=== PATIENT | male | born 1945 | race African-American/Black ===

== ENCOUNTER 2019-01-14 17:41 | Inpatient (IN) | payer MEDICARE ==
--- NOTE | 2019-01-14 17:59 | Emergency Department Report ---
HPI - General Time Seen by Provider: 01/14/19 17:48 - HPI HPI: Room 1 The patient is 73-year-old male presenting with chief complaint of weakness. The patient states he's had a nonproductive cough for the past several days. Patient states today he began to feel diffuse weakness prompting him to call 911. The patient denies chest pain, pressure, tightness or discomfort of any type. The patient states he feels as though he's been breathing more quickly Location: Lungs Duration: Days Quality: [See above] Severity: Moderate Modifying factors: [see above] Context: [see above] Mode of transportation: [not driving] ED Past Medical Hx - Past Medical History Hx Diabetes: Yes - Surgical History Past Surgical History?: No - Family History Family history: no significant - Social History Smoking Status: Unknown if ever smoked ED Review of Systems ROS: Stated complaint: STEMI Other details as noted in HPI Constitutional: weakness Eyes: denies: eye pain ENT: denies: throat pain Respiratory: shortness of breath Cardiovascular: denies: chest pain Endocrine: no symptoms reported Gastrointestinal: denies: abdominal pain Genitourinary: denies: dysuria Physical Exam - Physical Exam Physical Exam: GENERAL: The patient is well-developed well-nourished male lying on stretcher not appearing to be in acute distress. [] HEENT: Normocephalic. Atraumatic. Extraocular motions are intact. Patient has moist mucous membranes. NECK: Supple. Trachea midline CHEST/LUNGS: Coarse breath sounds diffusely. There is no respiratory distress noted. HEART/CARDIOVASCULAR: Regular. There is no tachycardia. There is no gallop rub or murmur. ABDOMEN: Abdomen is soft, nontender. Patient has normal bowel sounds. There is no abdominal distention. SKIN: There is no rash. There is no edema. There is no diaphoresis. NEURO: The patient is awake, alert, and oriented. The patient is cooperative. The patient has normal speech MUSCULOSKELETAL: There is no evidence of acute injury. ED Course - Consultations Consultation #1: 01/14/19 17:34 Prehospital EKG sent to Dr. Mckeon- case discussed. Recommend repeating EKG once the patient arrives in the ED. Okay to call a code STEMI now 17:52 EKG performed in the ED sent to Dr. Mckeon- will come and evaluate patient ED Medical Decision Making - EKG Data -: EKG Interpreted by Me EKG shows normal: sinus rhythm Rate: normal - EKG Data When compared to previous EKG there are: previous EKG unavailable Interpretation: other (ST elevation in leads V2, V3, V4) - Differential Diagnosis ACS, pneumonia, bronchitis, CHF Critical care attestation.: If time is entered above; I have spent that time in minutes in the direct care of this critically ill patient, excluding procedure time. ED Disposition Clinical Impression: Weakness, Cough Disposition: DC-09 OP ADMIT IP TO THIS HOSP Is pt being admited?: Yes Does the pt Need Aspirin: Yes Condition: Fair Time of Disposition: 18:02 (to [facility])
[2019-01-14] MEDS ORDERED: ASPIRIN PO ONE (18:02)
[2019-01-14] MEDS ORDERED: HEPARIN/NS 5000 UNIT/500ML(CATH LAB) 1,000 ML IR ONE (18:09)
[2019-01-14] MEDS ORDERED: NITROGLYCERIN SYRINGE 6 ML ONE (18:10)
[2019-01-14] MEDS ORDERED: NACL 0.9% 1000 ML 1,000 ML ONE (18:10)
[2019-01-14] MEDS ORDERED: VERSED ONE (18:12)
[2019-01-14] MEDS ORDERED: SUBLIMAZE ONE (18:13)
[2019-01-14] MEDS: XYLOCAINE 2% INFILTRATI ONE ×2 (18:16→18:17)
[2019-01-14] MEDS ORDERED: LASIX ONE ×2 (18:17→18:36)
[2019-01-14] MEDS: HEPARIN 10,000 UNITS/10 ML ONE ×2 (18:24→18:29)
--- NOTE | 2019-01-14 18:35 | History and Physical Report ---
Medications and Allergies Allergies Allergy/AdvReac Type Severity Reaction Status Date / Time No Known Allergies Allergy Verified 01/14/19 18:12 Exam - Constitutional Vitals: Temp Pulse Resp BP Pulse Ox 61 19 109/50 91 01/14/19 17:51 01/14/19 17:51 01/14/19 17:51 01/14/19 17:53
[2019-01-14] MEDS ORDERED: HEPARIN/NS 5000 UNIT/500ML(CATH LAB) 500 ML IR ONE (18:36)
[2019-01-14] MEDS ORDERED: AGGRASTAT DRIP (12.5 MG/250 ML) 12,500 MCG/250 ML BAG IV ONE (18:41)
[2019-01-14] MEDS ORDERED: MORPHINE ONE (18:56)
[2019-01-14] MEDS ORDERED: ZOFRAN IV PRN (18:57)
[2019-01-14] MEDS ORDERED: SODIUM CHLORIDE FLUSH SYRINGE 10 ML IV PRN (18:57)
[2019-01-14] MEDS ORDERED: MORPHINE IV PRN (18:57)
[2019-01-14] MEDS ORDERED: PROVENTIL IH PRN (18:57)
[2019-01-14] MEDS ORDERED: HEPARIN/ 0.45% NACL-25,000 UNIT/500 ML 25,000 UNIT/500 ML BAG ONE (19:01)
[2019-01-14] MEDS ORDERED: ALUM-MAG HYDROX-SIMETH 200-200-20MG/5ML ONE (19:02)
[2019-01-14] MEDS ORDERED: PLAVIX ONE (19:02)
[2019-01-14] MEDS ORDERED: TRIDIL DRIP 50MG/250ML 50 MG/250 ML BOTTLE ONE (19:04)
[2019-01-14 19:06] LABS: Basophils # (Auto) 0.1 K/mm3 (0.0-0.1); Basophils % (Auto) 0.4 % (0.0-1.8); Hematocrit 31.9 % (35.5-45.6); Hemoglobin 10.5 gm/dl (11.8-15.2); Lymphocytes # (Auto) 1.2 K/mm3 (1.2-5.4); Lymphocytes % (Auto) 8.3 % (13.4-35.0); Mean Corpuscular HGB Conc 33 % (32-34); Mean Corpuscular Volume 98 fl (84-94); Monocytes # (Auto) 0.7 K/mm3 (0.0-0.8); Monocytes % (Auto) 4.7 % (0.0-7.3); Platelet Count 284 K/mm3 (140-440); Red Blood Count 3.26 M/mm3 (3.65-5.03)
--- NOTE | 2019-01-14 19:14 | History and Physical Report ---
History of Present Illness Date of examination: 01/14/19 Chief complaint: Cough and weakness one week History of present illness: 73-year-old male was brought to the ER via EMS for complaints of cough and weakness of one week, EKG showed ST elevation IN and he was taken emergently to [facility] and cardiology asked to admit this patient by the hospitalist service. After this procedure I have seen and evaluated the patient and took history. 73-year-old male with past medical history significant for diabetes mellitus was brought to the emergency department with complaints of, difficulty of breathing for the last 3 days. Patient denied fever, chills, palpitation or chest pain prior to presentation. Patient complains weakness and tiredness. 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 REVIEW OF SYSTEMS: GENERAL: no weight change, no fatigue, no fever HEAD: no head ache EYES: no blurry vision, no acute visual loss EARS: no hearing loss, no discharge, no earache NOSE: no stuffiness, no sneezing, no discharge MOUTH, THROAT AND NECK: no bleeding gums, no sore throat, no swollen neck CARDIAC: no palpitations, no dyspnea on exertion, no orthopnea, no PND, no edema, no chest pain RESPIRATORY: As stated in the HPI. GI: no decreased appetite, no nausea, no vomiting, no dysphagia, no diarrhea, no constipation, no abdominal pain URINARY: no change in frequency, no urgency, no polyuria, no hematuria, no incontinence MUSCULOSKELETAL: no muscle weakness, no pain, no joint stiffness NEUROLOGIC: no loss of sensation/numbness, no tingling, no tremors, no weakness/paralysis HEMATOLOGIC: no anemia, no easy bruising SKIN: no rashes ENDOCRINE: no heat/cold intolerance, no polyuria, no polydipsia, no thyroid problems PSYCHIATRIC: no anxiety, no depression, no suicidal ideations Past History Past Medical History: diabetes Past Surgical History: hernia repair Social history: full code. denies: smoking, alcohol abuse, prescription drug abuse, IV drug use Family history: no significant family history Medications and Allergies Allergies Allergy/AdvReac Type Severity Reaction Status Date / Time No Known Allergies Allergy Verified 01/14/19 18:12 Exam - Physical Exam Narrative exam: Patient was in respiratory distress and was on Ventimask The patient appeared well nourished and normally developed. Vital signs as documented. Head exam is unremarkable. No scleral icterus . Neck is without jugular venous distension, thyromegaly, or carotid bruits. Lungs are clear to auscultation. Cardiac exam reveals regular rate and Rhythm. Tachycardic.. Abdominal exam reveals normal bowel sounds, no masses, no organomegaly and no aortic enlargement. Extremities are nonedematous and both femoral and pedal pulses are normal. MOLDER INFLATED BALL: Alert and oriented 3. No focal weakness. - Constitutional Vitals: Temp Pulse Resp BP Pulse Ox 61 19 109/50 91 01/14/19 17:51 01/14/19 17:51 01/14/19 17:51 01/14/19 17:53 Results - Labs CBC & Chem 7: 01/14/19 18:50 01/14/19 18:50 - Imaging and Cardiology Chest x-ray: report reviewed Assessment and Plan Assessment and plan: STEMI - Patient was taken emergently to [facility] by Dr. Mckeon and patient has occlu srinivasa of the LAD and stent was placed - Post STEMI orders placed by cardiology Pulmonary edema secondary to severe cardiomyopathy with ejection fraction of 15- 20% - Patient is on IV Lasix and other appropriate CHF medications DKA - Blood sugar was 427 and anion gap was 28 - Patient is on DKA protocol Bilateral pneumonia - Patient is on IV ceftriaxone and Rocephin Hypertension - Patient was started with BP medications and will monitor Disposition - Admit to CCU The high probability of a clinically significant, sudden or life threatening deterioration of the [CV, endocrine, respiratory] system(s) required my full and direct attention, intervention and personal management. The aggregate critical care time was [35] minutes. This time is in addition to time spent performing reported procedures but includes the following: [x] Data Review and interpretation [x] Patient assessment and monitoring of vital signs [x] Documentation [x] Medication orders and management Advance Directives: Yes VTE prophylaxis?: Chemical Plan of care discussed with patient/family: Yes
[2019-01-14 19:15] LABS: INR 1.97 (0.87-1.13)
[2019-01-14] MEDS ORDERED: TRIDIL DRIP 50MG/250ML 50 MG/250 ML BOTTLE IV ONE (19:16)
--- NOTE | 2019-01-14 19:30 | Consultation ---
History of Present Illness Consult date: 01/14/19 Consult reason: other (Acute STEMI) History of present illness: The patient is a 73-year-old man to the emergency room with complaints of shortness of breath or diaphoresis, and was hypoxic on presentation. His ECG was a normal sinus rhythm, with a widened QRS and left bundle branch block, but suspicious for an acute or recent anterior wall ST elevation myocardial infarction. Emergency cardiac catheterization protocol was activated. At cardiac catheterization, with found complete occlusion of the LAD at its ostium. There was no forward flow and no significant collateralization. In addition, the right coronary artery contained a long, 80% stenosis of its proximal to mid segment. There was a severe ischemic cardiomyopathy with ejection fraction estimated at less than 15-20%. We successfully performed primary angioplasty of the LAD, reestablished flow, and deployed a 2.75 mm drug-eluting stent. Due to evidence of a severe cardiomyopathy, acute heart failure and cardiogenic shock, we inserted an intra- aortic balloon pump and established successful one-to-one counterpulsation. The patient is admitted to the CCU for post-HI stabilization. The condition is guarded to poor. The disease of the right coronary will be planned for elective staged intervention as outpatient. Past History Past Medical History: CAD Medications and Allergies Allergies Allergy/AdvReac Type Severity Reaction Status Date / Time No Known Allergies Allergy Verified 01/14/19 18:12 Active Meds: Active Medications Albuterol (Proventil) 2.5 mg IH Q4HRT PRN PRN Reason: Shortness Of Breath Aspirin (Baby Aspirin) 162 mg PO QDAY ANAYELI Atorvastatin Calcium (Lipitor) 40 mg PO QHS ANAYELI Tirofiban/Sodium Chloride (Aggrastat Drip (12.5 Mg/250 Ml)) 12,500 mcg in 250 mls @ 0 mls/hr IV DIRECT ANAYELI; Protocol Stop: 01/15/19 13:59 Morphine Sulfate (Morphine) 2 mg IV Q4H PRN PRN Reason: Pain, Moderate (4-6) Ondansetron HCl (Zofran) 4 mg IV Q8H PRN PRN Reason: Nausea And Vomiting Sodium Chloride (Sodium Chloride Flush Syringe 10 Ml) 10 ml IV BID ANAYELI Sodium Chloride (Sodium Chloride Flush Syringe 10 Ml) 10 ml IV PRN PRN PRN Reason: LINE FLUSH Review of Systems ROS unobtainable: due to mental status Physical Examination Vital Signs Pulse Resp BP Pulse Ox 61 19 109/50 82 L 01/14/19 17:51 01/14/19 17:51 01/14/19 17:51 01/14/19 17:51 General appearance: mild distress, cachectic HEENT: Positive: PERRL Neck: Positive: neck supple Cardiac: Positive: Reg Rate and Rhythm Lungs: Positive: Decreased Breath Sounds, Rales Neuro: Positive: Grossly Intact Abdomen: Positive: Soft Male genitourinary: Positive: deferred Skin: Positive: Clear Extremities: Absent: edema Results 01/14/19 18:50 Coagulation 01/14/19 Range/Units 18:50 PT 23.7 H (12.2-14.9) Sec. INR 1.97 H (0.87-1.13) CBC 01/14/19 Range/Units 18:50 WBC 13.9 H (4.5-11.0) K/mm3 RBC 3.26 L (3.65-5.03) M/mm3 Hgb 10.5 L (11.8-15.2) gm/dl Hct 31.9 L (35.5-45.6) % Plt Count 284 (140-440) K/mm3 Lymph # 1.2 (1.2-5.4) K/mm3 [place] # 0.7 (0.0-0.8) K/mm3 Eos # 0.0 (0.0-0.4) K/mm3 Baso # 0.1 (0.0-0.1) K/mm3 EKG interpretations - Telemetry EKG Rhythm: Sinus Rhythm (acute anterior wall STEMI) Assessment and Plan - Patient Problems (1) Acute ST elevation myocardial infarction (STEMI) of anterior wall Current Visit: Yes Status: Acute Plan to address problem: Patient is status post acute anterior wall ST elevation myocardial infarction, treated successfully with primary angioplasty and stenting of the LAD. Intra- aortic balloon pump was inserted for further management of acute heart failure and cardiogenic shock. Prognosis is guarded.
--- NOTE | 2019-01-14 19:53 | Cardiac Catherization Report ---
PROCEDURES PERFORMED: Cardiac catheterization and coronary angioplasty. REASON FOR PROCEDURE: Acute anterior wall ST elevation myocardial infarction. The patient was brought to the Emergency Room with acute shortness of breath, diaphoretic, ECG was sinus rhythm with left bundle-branch block and evidence of an acute anterior wall ST elevation myocardial infarction. Emergency cardiac catheterization protocol was activated. DESCRIPTION OF PROCEDURE: The patient was prepped and draped in a sterile fashion under emergency protocol. The right femoral artery was entered using the Seldinger technique followed by placement of a 6-Chadian sheath. A 5-Chadian sheath was similarly placed in the right femoral vein. Selective left and right coronary angiography was performed using #4 right and left Jeri catheters. The right Jeri was used for left ventricle angiography. The angiograms were reviewed. The left main coronary artery contained mild irregularities. The left anterior descending artery was completely occluded at its ostium. There was no forward flow, no collateralization of the LAD. This was an infarct related lesion. The circumflex artery and its obtuse marginal branches contained mild irregularities. The right coronary artery was a small caliber, but dominant vessel. This vessel contained a long 80% stenosis of its proximal to mid segment. The left ventricle is severely dilated, severe left ventricular systolic dysfunction, diffuse hypokinesis, hypo- to akinesis of the anterior wall, ejection fraction estimated less than 15% to 20%. CORONARY ANGIOPLASTY: Ad hoc, primary angioplasty of the LAD was performed. We selected a #3.0 XB guiding catheter and advanced to the left coronary ostium. A 0.014-inch Training Project Manager 50 guidewire was introduced into the LAD, successfully penetrating the completely occluded vessel. Following wire placement, we performed predilatation balloon angioplasty which revealed long segment of diffuse severe disease of the LAD extending from its ostium. We then deployed #2.75 x 26 mm Resolute drug-eluting stent, covering the entire lesional segment. Following stenting, there was lutheran of ANTELMO 2-3 flow. Procedure was well tolerated by the patient and there were no complications. On presentation, the patient maintained a low blood pressure of 85-100 systolic. We then recommended intra-aortic balloon pump support. Intra-aortic balloon pump was then inserted, and successful 1:1 counterpulsation was established. The patient was returned to the postprocedure unit in stable, but guarded condition. CONCLUSION: 1. Acute anterior wall ST elevation myocardial infarction. 2. Congestive heart failure. 3. Cardiogenic shock. 4. A 100% occlusion of the left anterior descending artery at its ostium is the infarct related vessel. 5. A long 80% stenosis of the right coronary artery is a secondary disease. 6. Successful primary angioplasty and stenting of the LAD with deployment of a 2.75 x 22 mm drug-eluting stent. 7. Ischemic cardiomyopathy, severe left ventricular systolic dysfunction, ejection fraction less than 15% to 20%. 8. Deployment of an intra-aortic balloon pump. The patient will be admitted to the CCU for post-NH stabilization, subsequent second vessel angioplasty of the right coronary artery will be a staged procedure planned for predischarge or as an outpatient. JOB# [id number] ARISTEO/MAURO
[2019-01-14 19:57] LABS: Chol/HDL Ratio 4.48 %
[2019-01-14] MEDS ORDERED: HEPARIN/ 0.45% NACL-25,000 UNIT/500 ML 25,000 UNIT/500 ML BAG IV SCH (20:00)
[2019-01-14] MEDS ORDERED: NACL 0.9% 1000 ML 1,000 ML IV SCH (20:00)
[2019-01-14] MEDS ORDERED: AGGRASTAT DRIP (12.5 MG/250 ML) 12,500 MCG/250 ML BAG IV SCH (20:00)
[2019-01-14 20:10] LABS: Partial Thromboplastin Time < 20.0 Sec. (24.2-36.6)
--- NOTE | 2019-01-14 20:42 | XRay Report ---
PROCEDURES: XR CHEST 1V AP TECHNIQUE: AP portable view of the chest. HISTORY: cough COMPARISON: None FINDINGS: Lines, tubes, and devices: N/A Lungs and pleura: Trachea is normal in position. Bilateral alveolar infiltrates extending from the hi lar regions and findings are likely consistent with pulmonary edema. However, pneumonia is not exclud ed. Cardiomediastinal silhouette: Cardiac and mediastinal silhouettes are unremarkable. Other: Bony structures are intact. IMPRESSION: Bilateral perihilar alveolar infiltrates. Findings are most typical of pulmonary edema. Pneumonia is not excluded. This document is electronically signed by Alena Pathak MD., January 14 2019 08:40:31 PM ET
[2019-01-14 20:51] LABS: Creatine Kinase MB 3.2 ng/mL (0.0-4.0)
[2019-01-14 20:52] LABS: Albumin 2.8 g/dL (3.9-5); Calcium 8.2 mg/dL (8.4-10.2)
[2019-01-14] MEDS ORDERED: D50W (25GM) Syringe IV PRN (21:24)
[2019-01-14] MEDS ORDERED: COREG PO SCH (21:39)
[2019-01-14] MEDS ORDERED: HumuLIN R 100 UNITS in NACL 0.9% 99 ML IV SCH (22:00)
[2019-01-14 22:01] LABS: Free T4 (Free Thyroxine) 1.67 ng/dL (0.76-1.46)
[2019-01-14 22:06] LABS: Calcium 8.2 mg/dL (8.4-10.2)
[2019-01-14] MEDS: ZITHROMAX 500 MG in NACL 0.9% 250ML 250 ML IV SCH (22:12)
[2019-01-14] MEDS: PROTONIX PO SCH (22:16)
[2019-01-14] MEDS: ROCEPHIN/NS 1 GM/50 ML 1 GM/50 ML BAG IV SCH (22:30)
[2019-01-14] MEDS: SODIUM CHLORIDE FLUSH SYRINGE 10 ML IV SCH (22:38)
[2019-01-15 01:59] LABS: Blood Urea Nitrogen TNR mg/dL (9-20)
[2019-01-15 02:00] LABS: BUN/Creatinine Ratio TNR; Calcium TNR mg/dL (8.4-10.2); Hemolysis Index TNR
[2019-01-15 02:51] LABS: Calcium 7.6 mg/dL (8.4-10.2)
[2019-01-15 03:37] LABS: Basophils % (Auto) 0.3 % (0.0-1.8); Hemoglobin 9.5 gm/dl (11.8-15.2); Lymphocytes # (Auto) 1.3 K/mm3 (1.2-5.4); Lymphocytes % (Auto) 9.3 % (13.4-35.0); Mean Corpuscular HGB Conc 33 % (32-34); Mean Corpuscular Volume 96 fl (84-94); Monocytes # (Auto) 1.4 K/mm3 (0.0-0.8); Monocytes % (Auto) 10.1 % (0.0-7.3); Platelet Count 262 K/mm3 (140-440); Red Blood Count 3.01 M/mm3 (3.65-5.03); Red Cell Distribution Width 16.8 % (13.2-15.2)
[2019-01-15 04:18] LABS: Calcium 7.4 mg/dL (8.4-10.2)
[2019-01-15 05:33] LABS: Bilirubin,Urine NEG (Negative); Blood,Urine MOD (Negative); Color,Urine Yellow (Yellow); Mucus,Urine FEW /HPF; Protein,Urine <15 mg/dL mg/dL (Negative); Urobilinogen,Urine < 2.0 mg/dL (<2.0)
[2019-01-15] MEDS: LASIX IV SCH ×2 (06:29→17:25)
[2019-01-15] MEDS ORDERED: FLEXERIL PO ONE (06:30)
[2019-01-15] MEDS ORDERED: D50W (25GM) Syringe IV PRN (07:10)
[2019-01-15] MEDS: HumaLOG SUB-Q SCH ×4 (08:00→21:06)
--- NOTE | 2019-01-15 09:22 | XRay Report ---
PROCEDURE: XR CHEST 1V AP TECHNIQUE: Single frontal view of the chest HISTORY: post pci COMPARISONS: 01/14/2019 FINDINGS: Unchanged surgical clip in the mid mediastinum. Normal heart size. Air distended esophagus. Unchanged hazy airspace opacities extending from the hilar regions, similar in appearance the previou s study. No pleural effusion or pneumothorax. No acute bony or soft tissue abnormality. IMPRESSION: Unchanged airspace opacities extending from the hilar regions, may represent pulmonary edema. This document is electronically signed by Michelle Jones MD., January 15 2019 09:20:09 AM ET
[2019-01-15 10:18] LABS: Calcium 7.9 mg/dL (8.4-10.2)
[2019-01-15] MEDS: IMDUR PO SCH (11:05)
[2019-01-15] MEDS: PLAVIX PO SCH (11:05)
[2019-01-15] MEDS: ALDACTONE PO SCH (11:06)
[2019-01-15] MEDS: LANTUS SUB-Q SCH ×2 (11:07→21:15)
[2019-01-15] MEDS: BABY ASPIRIN PO SCH (11:07)
[2019-01-15] MEDS: PROTONIX PO SCH (11:08)
[2019-01-15] MEDS: SODIUM CHLORIDE FLUSH SYRINGE 10 ML IV SCH ×2 (11:09→20:59)
[2019-01-15] MEDS: ZESTRIL PO SCH (11:10)
--- NOTE | 2019-01-15 11:59 | Progress Note ---
Assessment and Plan - Patient Problems (1) Acute ST elevation myocardial infarction (STEMI) of anterior wall Current Visit: Yes Status: Acute Plan to address problem: Patient is status post acute anterior wall ST elevation myocardial infarction, treated successfully with primary angioplasty and stenting of the LAD. Intra- aortic balloon pump was inserted for further management of acute heart failure and cardiogenic shock. Prognosis is guarded. Subjective Date of service: 01/15/19 Interval history: The patient is awake and alert, reports no chest pain, remains balloon dependent one-to-one counterpulsation. Rhythm remains a stable sinus rhythm. Objective Vital Signs Temp Pulse Resp BP Pulse Ox 01/15/19 11:06 101 H 162/63 01/15/19 11:05 101 H 162/63 01/15/19 10:15 99 H 25 H 153/59 100 01/15/19 10:06 96 H 19 156/58 100 01/15/19 10:00 90 20 153/59 100 01/15/19 09:45 102 H 19 157/62 99 01/15/19 09:30 99 H 23 167/96 92 01/15/19 09:15 91 H 20 158/57 100 01/15/19 09:00 91 H 20 156/58 100 01/15/19 08:45 102 H 18 151/58 99 01/15/19 08:41 93 H 19 150/58 94 01/15/19 08:30 99 H 18 150/58 97 01/15/19 08:21 106 H 24 154/65 96 01/15/19 08:11 105 H 23 127/86 97 01/15/19 08:05 98.3 F 90 20 127/86 100 01/15/19 08:00 90 20 127/86 100 01/15/19 07:51 92 H 22 146/69 99 01/15/19 07:41 97 H 20 156/70 99 01/15/19 07:30 97 H 26 H 156/70 99 01/15/19 07:28 93 H 26 H 156/70 98 01/15/19 07:21 95 H 12 158/60 97 01/15/19 07:11 100 H 24 158/59 97 01/15/19 07:00 90 22 158/59 97 01/15/19 06:51 93 H 23 150/69 96 01/15/19 06:41 91 H 23 168/88 97 01/15/19 06:40 88 20 95 01/15/19 06:32 98.0 F 101 H 22 162/63 97 01/15/19 06:31 100 H 29 H 168/88 01/15/19 06:21 108 H 24 154/69 97 01/15/19 06:11 93 H 26 H 146/60 98 01/15/19 06:00 88 21 146/60 99 01/15/19 05:51 89 21 149/56 97 01/15/19 05:42 98.0 F 88 25 H 149/56 100 01/15/19 05:41 88 22 159/60 99 01/15/19 05:30 92 H 21 159/60 99 01/15/19 05:21 86 20 137/62 97 01/15/19 05:11 90 22 142/64 97 01/15/19 05:00 96 H 22 142/64 95 01/15/19 04:51 95 H 20 145/66 94 01/15/19 04:41 87 20 143/62 96 01/15/19 04:30 105 H 22 143/62 97 01/15/19 04:20 87 19 151/56 98 01/15/19 04:11 85 21 156/68 99 01/15/19 04:00 98.1 F 94 H 26 H 151/62 97 01/15/19 03:55 98.3 F 101 H 22 162/63 97 01/15/19 03:51 89 20 158/62 99 01/15/19 03:41 95 H 23 158/62 98 01/15/19 03:30 96 H 20 158/62 97 01/15/19 03:21 92 H 22 138/60 97 01/15/19 03:11 93 H 22 148/55 98 01/15/19 03:09 98.0 F 89 25 H 148/55 100 01/15/19 03:00 97.9 F 89 22 148/55 100 01/15/19 02:51 92 H 21 156/66 100 01/15/19 02:41 97 H 23 138/60 99 01/15/19 02:38 97 H 138/60 01/15/19 02:30 96 H 20 138/60 95 01/15/19 02:21 98.0 F 101 H 25 H 142/67 100 01/15/19 02:11 99 H 29 H 156/66 96 01/15/19 02:00 97.9 F 103 H 22 156/66 97 01/15/19 01:51 102 H 21 159/64 96 01/15/19 01:41 100 H 26 H 160/71 96 01/15/19 01:31 105 H 30 H 164/102 98 01/15/19 01:28 98.0 F 97 H 19 146/65 100 01/15/19 01:21 97 H 29 H 138/65 96 01/15/19 01:11 94 H 23 139/62 96 01/15/19 01:00 97.9 F 93 H 22 139/62 98 01/15/19 00:51 96 H 22 142/65 95 01/15/19 00:41 97 H 33 H 138/65 96 01/15/19 00:30 90 20 138/65 95 01/15/19 00:21 100 H 27 H 134/59 96 01/15/19 00:11 100 H 24 145/65 97 01/15/19 00:09 103 H 19 145/65 100 01/15/19 00:00 97.9 F 103 H 28 H 145/65 94 01/14/19 23:51 110 H 27 H 155/55 93 01/14/19 23:41 118 H 30 H 152/50 95 01/14/19 23:31 122 H 29 H 152/50 94 01/14/19 23:21 123 H 28 H 152/50 96 01/14/19 23:14 98.0 F 117 H 20 152/50 100 01/14/19 23:11 118 H 19 143/50 97 01/14/19 23:00 97.9 F 113 H 22 143/50 93 01/14/19 22:51 117 H 22 139/46 97 01/14/19 22:41 114 H 20 140/50 96 01/14/19 22:31 114 H 26 H 144/46 96 01/14/19 22:21 113 H 29 H 155/49 95 01/14/19 22:11 102 H 22 145/62 96 01/14/19 22:08 97.9 F 102 H 24 148/71 100 01/14/19 22:00 97.9 F 103 H 20 145/66 94 01/14/19 21:51 105 H 23 168/109 98 01/14/19 21:41 109 H 27 H 169/55 97 01/14/19 21:31 121 H 32 H 165/62 98 01/14/19 21:21 117 H 34 H 169/55 99 01/14/19 21:17 118 H 19 169/55 100 01/14/19 21:11 121 H 37 H 168/55 100 01/14/19 21:01 97.9 F 117 H 20 152/53 95 01/14/19 21:00 97.9 F 01/14/19 20:51 120 H 33 H 163/51 96 01/14/19 20:46 97.9 F 116 H 20 163/51 95 01/14/19 20:41 112 H 26 H 168/55 95 01/14/19 20:31 97.9 F 116 H 20 168/22 92 01/14/19 20:21 121 H 26 H 178/103 95 01/14/19 20:17 97.2 F L 125 H 20 174/103 100 01/14/19 20:11 121 H 33 H 01/14/19 20:08 121 H 29 H 01/14/19 17:53 91 01/14/19 17:51 61 19 109/50 82 L - Physical Examination General: No Apparent Distress HEENT: Positive: PERRL Neck: Positive: neck supple Cardiac: Positive: Reg Rate and Rhythm Lungs: Positive: Decreased Breath Sounds Neuro: Positive: Grossly Intact Abdomen: Positive: Soft Skin: Positive: Clear Extremities: Absent: edema - Labs and Meds Cardiac Enzymes 01/14/19 Range/Units 18:50 AST 70 H (5-40) units/L CK-MB (CK-2) 3.2 (0.0-4.0) ng/mL Coagulation 01/14/19 Range/Units 18:50 PT 23.7 H (12.2-14.9) Sec. INR 1.97 H (0.87-1.13) APTT < 20.0 L (24.2-36.6) Sec. Lipids 01/14/19 Range/Units 18:50 Triglycerides 106 (2-149) mg/dL Cholesterol 139 (50-199) mg/dL HDL Cholesterol 31 L (40-59) mg/dL Cholesterol/HDL Ratio 4.48 % CBC 01/14/19 01/15/19 Range/Units 18:50 03:23 WBC 13.9 H 13.6 H (4.5-11.0) K/mm3 RBC 3.26 L 3.01 L (3.65-5.03) M/mm3 Hgb 10.5 L 9.5 L (11.8-15.2) gm/dl Hct 31.9 L 29.0 L (35.5-45.6) % Plt Count 284 262 (140-440) K/mm3 Lymph # 1.2 1.3 (1.2-5.4) K/mm3 [place]eller # 0.7 1.4 H (0.0-0.8) K/mm3 Eos # 0.0 0.0 (0.0-0.4) K/mm3 Baso # 0.1 0.0 (0.0-0.1) K/mm3 Comprehensive Metabolic Panel 01/14/19 01/14/19 01/14/19 Range/Units 18:50 21:42 23:46 Sodium 123 L 130 L D TNR (137-145) mmol/L Potassium 5.8 H 5.4 H TNR (3.6-5.0) mmol/L Chloride 87.7 L 90.9 L TNR (98-107) mmol/L Carbon Dioxide 13 L 17 L TNR (22-30) mmol/L BUN 27 H 28 H TNR (9-20) mg/dL Creatinine 1.7 H 1.5 TNR (0.8-1.5) mg/dL Glucose 474 H 504 H* TNR (75-100) mg/dL Calcium 8.2 L 8.2 L TNR (8.4-10.2) mg/dL AST 70 H (5-40) units/L ALT 73 H (7-56) units/L Alkaline Phosphatase 66 (35-129) units/L Total Protein 6.0 L (6.3-8.2) g/dL Albumin 2.8 L (3.9-5) g/dL 01/15/19 01/15/19 01/15/19 Range/Units 01:20 03:23 07:38 Sodium 134 L 133 L 134 L (137-145) mmol/L Potassium 4.2 D 4.1 5.0 D (3.6-5.0) mmol/L Chloride 99.8 100.3 97.6 L (98-107) mmol/L Carbon Dioxide 20 L 21 L 20 L (22-30) mmol/L BUN 29 H 30 H 30 H (9-20) mg/dL Creatinine 1.3 1.3 1.3 (0.8-1.5) mg/dL Glucose 299 H 190 H 81 (75-100) mg/dL Calcium 7.6 L 7.4 L 7.9 L (8.4-10.2) mg/dL AST (5-40) units/L ALT (7-56) units/L Alkaline Phosphatase (35-129) units/L Total Protein (6.3-8.2) g/dL Albumin (3.9-5) g/dL
--- NOTE | 2019-01-15 12:27 | Consultation ---
History of Present Illness - Reason for Consult Consult date: 01/15/19 STEMI now on Balloon PUMP and Cardiogenic Shock Requesting physician: ADRIANNA ROMEO - History of Present Illness 73 y/o male admitted with sTEMI. Taken to laboratory sampler for PCI and had intra-aortic ballon pump placed. Currently 1:1, Augmented pressure is 138. Patient awake and alert. Ext are cool. Past History Past Medical History: diabetes Past Surgical History: hernia repair Social history: full code. denies: smoking, alcohol abuse, prescription drug abuse, IV drug use Family history: no significant family history Medications and Allergies Allergies Allergy/AdvReac Type Severity Reaction Status Date / Time No Known Allergies Allergy Verified 01/14/19 18:12 Home Medications Medication Instructions Recorded Confirmed Last Taken Type Calcium Citrate/Vitamin D3 5,000 tab PO DAILY 01/15/19 01/15/19 01/14/19 History am Glyburide 3 mg PO DAILY 01/15/19 01/15/19 01/14/19 History am Metformin ER (Nf) 1,000 mg PO BID 01/15/19 01/15/19 01/14/19 History am Active Meds: Active Medications Albuterol (Proventil) 2.5 mg IH Q4HRT PRN PRN Reason: Shortness Of Breath Aspirin (Baby Aspirin) 162 mg PO QDAY COUNTS INCLUDE 234 BEDS AT THE [facility] Last Admin: 01/15/19 11:07 Dose: 162 mg Documented by: Atorvastatin Calcium (Lipitor) 40 mg PO QHS COUNTS INCLUDE 234 BEDS AT THE [facility] Last Admin: 01/14/19 22:16 Dose: 40 mg Documented by: Clopidogrel Bisulfate (Plavix) 75 mg PO QDAY COUNTS INCLUDE 234 BEDS AT THE [facility] Last Admin: 01/15/19 11:05 Dose: 75 mg Documented by: Dextrose (D50w (25gm) Syringe) 50 ml IV PRN PRN PRN Reason: Hypoglycemia Furosemide (Lasix) 40 mg IV 0600,1800 COUNTS INCLUDE 234 BEDS AT THE [facility] Last Admin: 01/15/19 06:29 Dose: Not Given Documented by: Guaifenesin (Guaifenesin Dm Syrup) 10 ml PO Q4H PRN PRN Reason: Cough Last Admin: 01/15/19 12:01 Dose: 10 ml Documented by: Tirofiban/Sodium Chloride (Aggrastat Drip (12.5 Mg/250 Ml)) 12,500 mcg in 250 mls @ 5.25 mls/hr IV DIRECT ANAYELI; Protocol Stop: 01/15/19 13:59 Last Admin: 01/14/19 20:17 Dose: 5.25 mls/hr Documented by: Heparin Sodium/Sodium Chloride (Heparin/ 0.45% Nacl-25,000 Unit/500 Ml) 25,000 unit in 500 mls @ 15 mls/hr IV TITRATE ANAYELI; Protocol Last Titration: 01/15/19 04:05 Dose: 700 units/hr, 14 mls/hr Documented by: Nitroglycerin/Dextrose (Tridil Drip 50mg/250ml) 50 mg in 250 mls @ 3 mls/hr IV TITR ONE; Protocol Stop: 01/18/19 06:35 Last Admin: 01/14/19 20:17 Dose: 10 mcg/min, 3 mls/hr Documented by: Azithromycin 500 mg/ Sodium (Chloride) 250 mls @ 250 mls/hr IV Q24HR@2200 ANAYELI Last Admin: 01/14/19 22:12 Dose: 250 mls/hr Documented by: Ceftriaxone Sodium (Rocephin/Ns 1 Gm/50 Ml) 1 gm in 50 mls @ 100 mls/hr IV Q24HR@2200 ANAYELI; Protocol Last Admin: 01/14/19 22:30 Dose: 100 mls/hr Documented by: Insulin Glargine (Lantus) 10 units SUB-Q BID COUNTS INCLUDE 234 BEDS AT THE [facility] Last Admin: 01/15/19 11:07 Dose: 10 units Documented by: Insulin Human Lispro (Humalog) 0 unit SUB-Q ACHS COUNTS INCLUDE 234 BEDS AT THE [facility]; Protocol Last Admin: 01/15/19 12:01 Dose: 3 unit Documented by: Isosorbide Mononitrate (Imdur) 30 mg PO QDAY COUNTS INCLUDE 234 BEDS AT THE [facility] Last Admin: 01/15/19 11:05 Dose: 30 mg Documented by: Lisinopril (Zestril) 2.5 mg PO QDAY COUNTS INCLUDE 234 BEDS AT THE [facility] Last Admin: 01/15/19 11:10 Dose: Not Given Documented by: Morphine Sulfate (Morphine) 2 mg IV Q4H PRN PRN Reason: Pain, Moderate (4-6) Ondansetron HCl (Zofran) 4 mg IV Q8H PRN PRN Reason: Nausea And Vomiting Last Admin: 01/14/19 22:22 Dose: 4 mg Documented by: Pantoprazole Sodium (Protonix) 40 mg PO QDAY COUNTS INCLUDE 234 BEDS AT THE [facility] Last Admin: 01/15/19 11:08 Dose: 40 mg Documented by: Sodium Chloride (Sodium Chloride Flush Syringe 10 Ml) 10 ml IV BID COUNTS INCLUDE 234 BEDS AT THE [facility] Last Admin: 01/15/19 11:09 Dose: 10 ml Documented by: Sodium Chloride (Sodium Chloride Flush Syringe 10 Ml) 10 ml IV PRN PRN PRN Reason: LINE FLUSH Spironolactone (Aldactone) 25 mg PO QDAY COUNTS INCLUDE 234 BEDS AT THE [facility] Last Admin: 01/15/19 11:06 Dose: 25 mg Documented by: Review of Systems All systems: negative Exam - Constitutional Vitals: Temp Pulse Resp BP Pulse Ox 98.3 F 101 H 25 H 162/63 96 01/15/19 08:05 01/15/19 11:06 01/15/19 10:15 01/15/19 11:06 01/15/19 12:03 General appearance: Present: no acute distress, disheveled - EENT Eyes: Present: PERRL ENT: hearing intact - Neck Neck: Present: supple - Respiratory Respiratory effort: other (tachypnic) Respiratory: bilateral: rales - Cardiovascular Rhythm: regular - Extremities Extremity abnormal: cold - Abdominal General gastrointestinal: Present: soft Results - Labs CBC & Chem 7: 01/15/19 03:23 01/15/19 07:38 Labs: Abnormal lab results 01/14/19 01/14/19 01/14/19 Range/Units 18:50 18:50 18:50 WBC (4.5-11.0) K/mm3 RBC (3.65-5.03) M/mm3 Hgb (11.8-15.2) gm/dl Hct (35.5-45.6) % MCV (84-94) fl RDW (13.2-15.2) % Lymph % (Auto) (13.4-35.0) % [place] % (Auto) (0.0-7.3) % [place] # (0.0-0.8) K/mm3 Seg Neutrophils % (40.0-70.0) % Seg Neutrophils # (1.8-7.7) K/mm3 PT 23.7 H (12.2-14.9) Sec. INR 1.97 H (0.87-1.13) APTT < 20.0 L (24.2-36.6) Sec. Heparin Anti-Xa Level (0.3-0.7) U.I./ml Sodium 123 L (137-145) mmol/L Potassium 5.8 H (3.6-5.0) mmol/L Chloride 87.7 L (98-107) mmol/L Carbon Dioxide 13 L (22-30) mmol/L BUN 27 H (9-20) mg/dL Creatinine 1.7 H (0.8-1.5) mg/dL Glucose 474 H (75-100) mg/dL POC Glucose (70-105) Calcium 8.2 L (8.4-10.2) mg/dL AST 70 H (5-40) units/L ALT 73 H (7-56) units/L Troponin T 1.780 H* (0.00-0.029) ng/mL NT-Pro-B Natriuret Pep 8727 H (0-900) pg/mL Total Protein 6.0 L (6.3-8.2) g/dL Albumin 2.8 L (3.9-5) g/dL HDL Cholesterol (40-59) mg/dL Free T4 1.67 H (0.76-1.46) ng/dL Ur Specific [place] (1.003-1.030) Urine WBC (Auto) (0.0-6.0) /HPF 01/14/19 01/14/19 01/14/19 Range/Units 18:50 18:50 21:12 WBC 13.9 H (4.5-11.0) K/mm3 RBC 3.26 L (3.65-5.03) M/mm3 Hgb 10.5 L (11.8-15.2) gm/dl Hct 31.9 L (35.5-45.6) % MCV 98 H (84-94) fl RDW 17.0 H (13.2-15.2) % Lymph % (Auto) 8.3 L (13.4-35.0) % [place] % (Auto) (0.0-7.3) % [place] # (0.0-0.8) K/mm3 Seg Neutrophils % 86.6 H (40.0-70.0) % Seg Neutrophils # 12.1 H (1.8-7.7) K/mm3 PT (12.2-14.9) Sec. INR (0.87-1.13) APTT (24.2-36.6) Sec. Heparin Anti-Xa Level (0.3-0.7) U.I./ml Sodium (137-145) mmol/L Potassium (3.6-5.0) mmol/L Chloride (98-107) mmol/L Carbon Dioxide (22-30) mmol/L BUN (9-20) mg/dL Creatinine (0.8-1.5) mg/dL Glucose (75-100) mg/dL POC Glucose 437 H (70-105) Calcium (8.4-10.2) mg/dL AST (5-40) units/L ALT (7-56) units/L Troponin T 1.760 H* (0.00-0.029) ng/mL NT-Pro-B Natriuret Pep (0-900) pg/mL Total Protein (6.3-8.2) g/dL Albumin (3.9-5) g/dL HDL Cholesterol 31 L (40-59) mg/dL Free T4 (0.76-1.46) ng/dL Ur Specific [place] (1.003-1.030) Urine WBC (Auto) (0.0-6.0) /HPF 01/14/19 01/14/19 01/14/19 Range/Units 21:42 23:05 23:40 WBC (4.5-11.0) K/mm3 RBC (3.65-5.03) M/mm3 Hgb (11.8-15.2) gm/dl Hct (35.5-45.6) % MCV (84-94) fl RDW (13.2-15.2) % Lymph % (Auto) (13.4-35.0) % [place] % (Auto) (0.0-7.3) % [place] # (0.0-0.8) K/mm3 Seg Neutrophils % (40.0-70.0) % Seg Neutrophils # (1.8-7.7) K/mm3 PT (12.2-14.9) Sec. INR (0.87-1.13) APTT (24.2-36.6) Sec. Heparin Anti-Xa Level (0.3-0.7) U.I./ml Sodium 130 L D (137-145) mmol/L Potassium 5.4 H (3.6-5.0) mmol/L Chloride 90.9 L (98-107) mmol/L Carbon Dioxide 17 L (22-30) mmol/L BUN 28 H (9-20) mg/dL Creatinine (0.8-1.5) mg/dL Glucose 504 H* (75-100) mg/dL POC Glucose 372 H 389 H (70-105) Calcium 8.2 L (8.4-10.2) mg/dL AST (5-40) units/L ALT (7-56) units/L Troponin T (0.00-0.029) ng/mL NT-Pro-B Natriuret Pep (0-900) pg/mL Total Protein (6.3-8.2) g/dL Albumin (3.9-5) g/dL HDL Cholesterol (40-59) mg/dL Free T4 (0.76-1.46) ng/dL Ur Specific [place] (1.003-1.030) Urine WBC (Auto) (0.0-6.0) /HPF 01/15/19 01/15/19 01/15/19 Range/Units 00:07 01:12 01:20 WBC (4.5-11.0) K/mm3 RBC (3.65-5.03) M/mm3 Hgb (11.8-15.2) gm/dl Hct (35.5-45.6) % MCV (84-94) fl RDW (13.2-15.2) % Lymph % (Auto) (13.4-35.0) % [place] % (Auto) (0.0-7.3) % [place] # (0.0-0.8) K/mm3 Seg Neutrophils % (40.0-70.0) % Seg Neutrophils # (1.8-7.7) K/mm3 PT (12.2-14.9) Sec. INR (0.87-1.13) APTT (24.2-36.6) Sec. Heparin Anti-Xa Level (0.3-0.7) U.I./ml Sodium 134 L (137-145) mmol/L Potassium (3.6-5.0) mmol/L Chloride (98-107) mmol/L Carbon Dioxide 20 L (22-30) mmol/L BUN 29 H (9-20) mg/dL Creatinine (0.8-1.5) mg/dL Glucose 299 H (75-100) mg/dL POC Glucose 384 H 311 H (70-105) Calcium 7.6 L (8.4-10.2) mg/dL AST (5-40) units/L ALT (7-56) units/L Troponin T (0.00-0.029) ng/mL NT-Pro-B Natriuret Pep (0-900) pg/mL Total Protein (6.3-8.2) g/dL Albumin (3.9-5) g/dL HDL Cholesterol (40-59) mg/dL Free T4 (0.76-1.46) ng/dL Ur Specific [place] (1.003-1.030) Urine WBC (Auto) (0.0-6.0) /HPF 01/15/19 01/15/19 01/15/19 Range/Units 01:20 02:29 03:10 WBC (4.5-11.0) K/mm3 RBC (3.65-5.03) M/mm3 Hgb (11.8-15.2) gm/dl Hct (35.5-45.6) % MCV (84-94) fl RDW (13.2-15.2) % Lymph % (Auto) (13.4-35.0) % [place] % (Auto) (0.0-7.3) % [place] # (0.0-0.8) K/mm3 Seg Neutrophils % (40.0-70.0) % Seg Neutrophils # (1.8-7.7) K/mm3 PT (12.2-14.9) Sec. INR (0.87-1.13) APTT (24.2-36.6) Sec. Heparin Anti-Xa Level 0.99 H (0.3-0.7) U.I./ml Sodium (137-145) mmol/L Potassium (3.6-5.0) mmol/L Chloride (98-107) mmol/L Carbon Dioxide (22-30) mmol/L BUN (9-20) mg/dL Creatinine (0.8-1.5) mg/dL Glucose (75-100) mg/dL POC Glucose 289 H 227 H (70-105) Calcium (8.4-10.2) mg/dL AST (5-40) units/L ALT (7-56) units/L Troponin T (0.00-0.029) ng/mL NT-Pro-B Natriuret Pep (0-900) pg/mL Total Protein (6.3-8.2) g/dL Albumin (3.9-5) g/dL HDL Cholesterol (40-59) mg/dL Free T4 (0.76-1.46) ng/dL Ur Specific [place] (1.003-1.030) Urine WBC (Auto) (0.0-6.0) /HPF 01/15/19 01/15/19 01/15/19 Range/Units 03:23 03:23 03:23 WBC 13.6 H (4.5-11.0) K/mm3 RBC 3.01 L (3.65-5.03) M/mm3 Hgb 9.5 L (11.8-15.2) gm/dl Hct 29.0 L (35.5-45.6) % MCV 96 H (84-94) fl RDW 16.8 H (13.2-15.2) % Lymph % (Auto) 9.3 L (13.4-35.0) % [place] % (Auto) 10.1 H (0.0-7.3) % [place] # 1.4 H (0.0-0.8) K/mm3 Seg Neutrophils % 80.3 H (40.0-70.0) % Seg Neutrophils # 10.9 H (1.8-7.7) K/mm3 PT (12.2-14.9) Sec. INR (0.87-1.13) APTT (24.2-36.6) Sec. Heparin Anti-Xa Level 0.85 H (0.3-0.7) U.I./ml Sodium 133 L (137-145) mmol/L Potassium (3.6-5.0) mmol/L Chloride (98-107) mmol/L Carbon Dioxide 21 L (22-30) mmol/L BUN 30 H (9-20) mg/dL Creatinine (0.8-1.5) mg/dL Glucose 190 H (75-100) mg/dL POC Glucose (70-105) Calcium 7.4 L (8.4-10.2) mg/dL AST (5-40) units/L ALT (7-56) units/L Troponin T (0.00-0.029) ng/mL NT-Pro-B Natriuret Pep (0-900) pg/mL Total Protein (6.3-8.2) g/dL Albumin (3.9-5) g/dL HDL Cholesterol (40-59) mg/dL Free T4 (0.76-1.46) ng/dL Ur Specific [place] (1.003-1.030) Urine WBC (Auto) (0.0-6.0) /HPF 01/15/19 01/15/19 01/15/19 Range/Units 04:49 05:11 05:50 WBC (4.5-11.0) K/mm3 RBC (3.65-5.03) M/mm3 Hgb (11.8-15.2) gm/dl Hct (35.5-45.6) % MCV (84-94) fl RDW (13.2-15.2) % Lymph % (Auto) (13.4-35.0) % [place] % (Auto) (0.0-7.3) % [place] # (0.0-0.8) K/mm3 Seg Neutrophils % (40.0-70.0) % Seg Neutrophils # (1.8-7.7) K/mm3 PT (12.2-14.9) Sec. INR (0.87-1.13) APTT (24.2-36.6) Sec. Heparin Anti-Xa Level (0.3-0.7) U.I./ml Sodium (137-145) mmol/L Potassium (3.6-5.0) mmol/L Chloride (98-107) mmol/L Carbon Dioxide (22-30) mmol/L BUN (9-20) mg/dL Creatinine (0.8-1.5) mg/dL Glucose (75-100) mg/dL POC Glucose 171 H 118 H (70-105) Calcium (8.4-10.2) mg/dL AST (5-40) units/L ALT (7-56) units/L Troponin T (0.00-0.029) ng/mL NT-Pro-B Natriuret Pep (0-900) pg/mL Total Protein (6.3-8.2) g/dL Albumin (3.9-5) g/dL HDL Cholesterol (40-59) mg/dL Free T4 (0.76-1.46) ng/dL Ur Specific [place] 1.046 H (1.003-1.030) Urine WBC (Auto) 19.0 H (0.0-6.0) /HPF 01/15/19 01/15/19 01/15/19 Range/Units 06:19 07:38 08:08 WBC (4.5-11.0) K/mm3 RBC (3.65-5.03) M/mm3 Hgb (11.8-15.2) gm/dl Hct (35.5-45.6) % MCV (84-94) fl RDW (13.2-15.2) % Lymph % (Auto) (13.4-35.0) % [place] % (Auto) (0.0-7.3) % [place] # (0.0-0.8) K/mm3 Seg Neutrophils % (40.0-70.0) % Seg Neutrophils # (1.8-7.7) K/mm3 PT (12.2-14.9) Sec. INR (0.87-1.13) APTT (24.2-36.6) Sec. Heparin Anti-Xa Level (0.3-0.7) U.I./ml Sodium 134 L (137-145) mmol/L Potassium (3.6-5.0) mmol/L Chloride 97.6 L (98-107) mmol/L Carbon Dioxide 20 L (22-30) mmol/L BUN 30 H (9-20) mg/dL Creatinine (0.8-1.5) mg/dL Glucose (75-100) mg/dL POC Glucose 120 H 110 H (70-105) Calcium 7.9 L (8.4-10.2) mg/dL AST (5-40) units/L ALT (7-56) units/L Troponin T (0.00-0.029) ng/mL NT-Pro-B Natriuret Pep (0-900) pg/mL Total Protein (6.3-8.2) g/dL Albumin (3.9-5) g/dL HDL Cholesterol (40-59) mg/dL Free T4 (0.76-1.46) ng/dL Ur Specific [place] (1.003-1.030) Urine WBC (Auto) (0.0-6.0) /HPF 01/15/19 Range/Units 11:24 WBC (4.5-11.0) K/mm3 RBC (3.65-5.03) M/mm3 Hgb (11.8-15.2) gm/dl Hct (35.5-45.6) % MCV (84-94) fl RDW (13.2-15.2) % Lymph % (Auto) (13.4-35.0) % [place] % (Auto) (0.0-7.3) % [place] # (0.0-0.8) K/mm3 Seg Neutrophils % (40.0-70.0) % Seg Neutrophils # (1.8-7.7) K/mm3 PT (12.2-14.9) Sec. INR (0.87-1.13) APTT (24.2-36.6) Sec. Heparin Anti-Xa Level (0.3-0.7) U.I./ml Sodium (137-145) mmol/L Potassium (3.6-5.0) mmol/L Chloride (98-107) mmol/L Carbon Dioxide (22-30) mmol/L BUN (9-20) mg/dL Creatinine (0.8-1.5) mg/dL Glucose (75-100) mg/dL POC Glucose 173 H (70-105) Calcium (8.4-10.2) mg/dL AST (5-40) units/L ALT (7-56) units/L Troponin T (0.00-0.029) ng/mL NT-Pro-B Natriuret Pep (0-900) pg/mL Total Protein (6.3-8.2) g/dL Albumin (3.9-5) g/dL HDL Cholesterol (40-59) mg/dL Free T4 (0.76-1.46) ng/dL Ur Specific [place] (1.003-1.030) Urine WBC (Auto) (0.0-6.0) /HPF - Imaging and Cardiology Chest x-ray: image reviewed (pulmonary edema) Assessment and Plan 73 y/o male with STEMI, now in Cardiogenic shock 1. Spoke with nursing at bedside. Cards only concerned with Augmented pressure and they do not want this below 120. Currently no on any pressors 2. Pulm status so far stable on ventimask. Did get lasix yesterday. able to lie flat. Will continue to monitor 3. Overall prognosis is extremely guarded to poor. CCT 31 minutes.
[2019-01-15] MEDS ORDERED: NACL 0.9% 1000 ML 1,000 ML IV SCH (13:00)
[2019-01-15] MEDS: HEPARIN/ 0.45% NACL-25,000 UNIT/500 ML 25,000 UNIT/500 ML BAG IV SCH (14:45)
[2019-01-15 15:28] LABS: Creatine Kinase MB 9.3 ng/mL (0.0-4.0)
--- NOTE | 2019-01-15 16:05 | Progress Note ---
Assessment and Plan Assessment and plan: STEMI - Patient was taken emergently to rn labor delivery by Dr. Mckeon and patient has occlusion of the LAD and stent was placed yesterday - Blood pressure was low but card said if augmented pressure was above 120 that is ok Pulmonary edema secondary to severe cardiomyopathy with ejection fraction of 15- 20% - Patient was IV Lasix yesterday and off Lasix because the patient is hypotensive DKA - Treated according to DKA protocol and resolved - Currently patient is on sliding scale insulin, and basal insulin, ADA diet, Accu-Chek, adjust insulin as needed Sepsis secondary to Bilateral pneumonia, UTI - Patient is on IV ceftriaxone and Rocephin - Follow blood culture results Hypertension - Blood pressure is low and no more blood pressure medication needs Disposition - Continue CCU care Prognosis guarded The high probability of a clinically significant, sudden or life threatening deterioration of the [CV, endocrine, respiratory] system(s) required my full and direct attention, intervention and personal management. The aggregate critical care time was [35] minutes. This time is in addition to time spent performing reported procedures but includes the following: [x] Data Review and interpretation [x] Patient assessment and monitoring of vital signs [x] Documentation [x] Medication orders and management History Interval history: Patient was seen and evaluated this morning, patient is lying flat, patient is on [facility] Hospitalist Physical - Physical exam Narrative exam: Patient was in respiratory distress and was on Ventimask The patient appeared well nourished and normally developed. Vital signs as documented. Head exam is unremarkable. No scleral icterus . Neck is without jugular venous distension, thyromegaly, or carotid bruits. Lungs are clear to auscultation. Cardiac exam reveals regular rate and Rhythm. Tachycardic.. Abdominal exam reveals normal bowel sounds, no masses, no organomegaly and no aortic enlargement. Extremities are nonedematous and both femoral and pedal pulses are normal. PRODUCT RESPONSIBILITY LIAISON: Alert and oriented 3. No focal weakness. - Constitutional Vitals: Temp Pulse Resp BP Pulse Ox 97.5 F L 99 H 28 H 151/67 100 01/15/19 12:06 01/15/19 15:30 01/15/19 15:30 01/15/19 15:30 01/15/19 15:30 General appearance: Present: no acute distress, disheveled Results - Labs CBC & Chem 7: 01/15/19 03:23 01/15/19 14:45 Labs: Laboratory Last Values WBC 13.6 K/mm3 (4.5-11.0) H 01/15/19 03:23 RBC 3.01 M/mm3 (3.65-5.03) L 01/15/19 03:23 Hgb 9.5 gm/dl (11.8-15.2) L 01/15/19 03:23 Hct 29.0 % (35.5-45.6) L 01/15/19 03:23 MCV 96 fl (84-94) H 01/15/19 03:23 MCH 32 pg (28-32) 01/15/19 03:23 MCHC 33 % (32-34) 01/15/19 03:23 RDW 16.8 % (13.2-15.2) H 01/15/19 03:23 Plt Count 262 K/mm3 (140-440) 01/15/19 03:23 Lymph % (Auto) 9.3 % (13.4-35.0) L 01/15/19 03:23 [place] % (Auto) 10.1 % (0.0-7.3) H 01/15/19 03:23 Eos % (Auto) 0.0 % (0.0-4.3) 01/15/19 03:23 Baso % (Auto) 0.3 % (0.0-1.8) 01/15/19 03:23 Lymph # 1.3 K/mm3 (1.2-5.4) 01/15/19 03:23 [place] # 1.4 K/mm3 (0.0-0.8) H 01/15/19 03:23 Eos # 0.0 K/mm3 (0.0-0.4) 01/15/19 03:23 Baso # 0.0 K/mm3 (0.0-0.1) 01/15/19 03:23 Seg Neutrophils % 80.3 % (40.0-70.0) H 01/15/19 03:23 Seg Neutrophils # 10.9 K/mm3 (1.8-7.7) H 01/15/19 03:23 PT 23.7 Sec. (12.2-14.9) H 01/14/19 18:50 INR 1.97 (0.87-1.13) H 01/14/19 18:50 APTT < 20.0 Sec. (24.2-36.6) L 01/14/19 18:50 Heparin Anti-Xa Level 0.85 U.I./ml (0.3-0.7) H 01/15/19 03:23 Sodium 132 mmol/L (137-145) L 01/15/19 14:45 Potassium 4.7 mmol/L (3.6-5.0) 01/15/19 14:45 Chloride 98.2 mmol/L (98-107) 01/15/19 14:45 Carbon Dioxide 23 mmol/L (22-30) 01/15/19 14:45 Anion Gap 16 mmol/L 01/15/19 14:45 BUN 31 mg/dL (9-20) H 01/15/19 14:45 Creatinine 1.2 mg/dL (0.8-1.5) 01/15/19 14:45 Estimated GFR 59 ml/min 01/15/19 14:45 BUN/Creatinine Ratio 26 % 01/15/19 14:45 Glucose 200 mg/dL (75-100) H 01/15/19 14:45 POC Glucose 173 (70-105) H 01/15/19 11:24 Calcium 8.0 mg/dL (8.4-10.2) L 01/15/19 14:45 Magnesium 2.00 mg/dL (1.7-2.3) 01/14/19 18:50 Total Bilirubin 0.40 mg/dL (0.1-1.2) 01/14/19 18:50 AST 70 units/L (5-40) H 01/14/19 18:50 ALT 73 units/L (7-56) H 01/14/19 18:50 Alkaline Phosphatase 66 units/L (35-129) 01/14/19 18:50 Total Creatine Kinase 294 units/L (55-170) H 01/15/19 14:45 CK-MB (CK-2) 9.3 ng/mL (0.0-4.0) H 01/15/19 14:45 CK-MB (CK-2) Rel Index 3.1 (0-4) 01/15/19 14:45 Troponin T 3.300 ng/mL (0.00-0.029) H* D 01/15/19 14:45 NT-Pro-B Natriuret Pep 8727 pg/mL (0-900) H 01/14/19 18:50 Total Protein 6.0 g/dL (6.3-8.2) L 01/14/19 18:50 Albumin 2.8 g/dL (3.9-5) L 01/14/19 18:50 Albumin/Globulin Ratio 0.9 % 01/14/19 18:50 Triglycerides 106 mg/dL (2-149) 01/14/19 18:50 Cholesterol 139 mg/dL (50-199) 01/14/19 18:50 LDL Cholesterol Direct 103 mg/dL (50-130) 01/14/19 18:50 HDL Cholesterol 31 mg/dL (40-59) L 01/14/19 18:50 Cholesterol/HDL Ratio 4.48 % 01/14/19 18:50 TSH 3.710 mlU/mL (0.270-4.200) 01/14/19 18:50 Free T4 1.67 ng/dL (0.76-1.46) H 01/14/19 18:50 Urine Color Yellow (Yellow) 01/15/19 05:11 Urine Turbidity Slightly-cloudy (Clear) 01/15/19 05:11 Urine pH 5.0 (5.0-7.0) 01/15/19 05:11 Ur Specific Lipan 1.046 (1.003-1.030) H 01/15/19 05:11 Urine Protein <15 mg/dl mg/dL (Negative) 01/15/19 05:11 Urine Glucose (UA) 50 mg/dL (Negative) 01/15/19 05:11 Urine Ketones Neg mg/dL (Negative) 01/15/19 05:11 Urine Blood Mod (Negative) 01/15/19 05:11 Urine Nitrite Neg (Negative) 01/15/19 05:11 Urine Bilirubin Neg (Negative) 01/15/19 05:11 Urine Urobilinogen < 2.0 mg/dL (<2.0) 01/15/19 05:11 Ur Leukocyte Esterase Neg (Negative) 01/15/19 05:11 Urine WBC (Auto) 19.0 /HPF (0.0-6.0) H 01/15/19 05:11 Urine RBC (Auto) 6.0 /HPF (0.0-6.0) 01/15/19 05:11 U Epithel Cells (Auto) < 1.0 /HPF (0-13.0) 01/15/19 05:11 Urine Mucus Few /HPF 01/15/19 05:11
[2019-01-15] MEDS: ROCEPHIN/NS 1 GM/50 ML 1 GM/50 ML BAG IV SCH (21:02)
[2019-01-15] MEDS: ZITHROMAX 500 MG in NACL 0.9% 250ML 250 ML IV SCH (21:03)
[2019-01-15] MEDS ORDERED: COREG PO SCH (22:00)
[2019-01-16] MEDS: HEPARIN/ 0.45% NACL-25,000 UNIT/500 ML 25,000 UNIT/500 ML BAG IV SCH (00:46)
[2019-01-16 05:37] LABS: Basophils # (Auto) 0.1 K/mm3 (0.0-0.1); Basophils % (Auto) 0.4 % (0.0-1.8); Hematocrit 24.5 % (35.5-45.6); Hemoglobin 8.4 gm/dl (11.8-15.2); Lymphocytes # (Auto) 1.5 K/mm3 (1.2-5.4); Lymphocytes % (Auto) 11.1 % (13.4-35.0); Mean Corpuscular HGB Conc 34 % (32-34); Mean Corpuscular Volume 95 fl (84-94); Monocytes # (Auto) 1.1 K/mm3 (0.0-0.8); Monocytes % (Auto) 8.4 % (0.0-7.3); Platelet Count 228 K/mm3 (140-440); Red Blood Count 2.58 M/mm3 (3.65-5.03); Red Cell Distribution Width 16.4 % (13.2-15.2)
[2019-01-16 05:57] LABS: BUN/Creatinine Ratio 23; Blood Urea Nitrogen 23 mg/dL (9-20); Calcium 7.8 mg/dL (8.4-10.2); Hemolysis Index 13
[2019-01-16] MEDS: LASIX IV SCH (06:44)
[2019-01-16] MEDS: HumaLOG SUB-Q SCH ×4 (08:10→23:02)
[2019-01-16] MEDS: PLAVIX PO SCH (09:51)
[2019-01-16] MEDS: BABY ASPIRIN PO SCH (09:51)
[2019-01-16] MEDS: ALDACTONE PO SCH (09:51)
[2019-01-16] MEDS: PROTONIX PO SCH (09:51)
[2019-01-16] MEDS: IMDUR PO SCH (09:52)
[2019-01-16] MEDS: LANTUS SUB-Q SCH ×2 (10:00→23:01)
[2019-01-16] MEDS: SODIUM CHLORIDE FLUSH SYRINGE 10 ML IV SCH (10:15)
--- NOTE | 2019-01-16 11:17 | Progress Note ---
Assessment and Plan Assessment and plan: STEMI -status post cardiac cath with primary angioplasty and stenting of his subacute occlusion of the LAD at its ostium. -On heparin drip, aspirin, Brilinta and high-dose statin -Cardiology following Cardiogenic shock -Blood pressure improved -Currently on intra-aortic balloon pump support. -Cardiology following New systolic heart failure with acute exacerbation -EF per cardiac cath: 15-20% -Improved, off Lasix Sepsis secondary to Bilateral pneumonia versus UTI -Patient is on IV ceftriaxone and Azithro -blood culture neg so far Acute respiratory failure with hypoxia, present on admission -Continue oxygen supplementation as needed DKA -resolved -cont SSI and Lantus and adjust as needed Hyponatremia, resolved Dyslipidemia -On statin Acute on chronic anemia -We will monitor H&H and transfuse as needed Disposition -Continue CCU care. D/c will depend on clinical course Time spent: 38 minutes History Interval history: Patient has no new complaints. He denies chest pain or shortness of breath. Hospitalist Physical - Constitutional Vitals: Temp Pulse Resp BP Pulse Ox 97.5 F L 103 H 27 H 149/77 99 01/16/19 09:03 01/16/19 10:16 01/16/19 10:16 01/16/19 10:16 01/16/19 10:16 General appearance: Present: no acute distress - EENT Eyes: Present: PERRL, EOM intact ENT: hearing intact, clear oral mucosa - Neck Neck: Present: supple - Respiratory Respiratory effort: normal Respiratory: bilateral: CTA - Cardiovascular Rhythm: regular Heart Sounds: Present: S1 & S2 - Extremities Extremities: No edema - Abdominal General gastrointestinal: soft, non-tender, non-distended, normal bowel sounds - Neurologic Neurologic: CNII-XII intact Results - Labs CBC & Chem 7: 01/16/19 05:00 01/16/19 05:00 Labs: Laboratory Last Values WBC 13.5 K/mm3 (4.5-11.0) H 01/16/19 05:00 RBC 2.58 M/mm3 (3.65-5.03) L 01/16/19 05:00 Hgb 8.4 gm/dl (11.8-15.2) L 01/16/19 05:00 Hct 24.5 % (35.5-45.6) L 01/16/19 05:00 MCV 95 fl (84-94) H 01/16/19 05:00 MCH 32 pg (28-32) 01/16/19 05:00 MCHC 34 % (32-34) 01/16/19 05:00 RDW 16.4 % (13.2-15.2) H 01/16/19 05:00 Plt Count 228 K/mm3 (140-440) 01/16/19 05:00 Lymph % (Auto) 11.1 % (13.4-35.0) L 01/16/19 05:00 [place] % (Auto) 8.4 % (0.0-7.3) H 01/16/19 05:00 Eos % (Auto) 0.0 % (0.0-4.3) 01/16/19 05:00 Baso % (Auto) 0.4 % (0.0-1.8) 01/16/19 05:00 Lymph # 1.5 K/mm3 (1.2-5.4) 01/16/19 05:00 [place] # 1.1 K/mm3 (0.0-0.8) H 01/16/19 05:00 Eos # 0.0 K/mm3 (0.0-0.4) 01/16/19 05:00 Baso # 0.1 K/mm3 (0.0-0.1) 01/16/19 05:00 Seg Neutrophils % 80.1 % (40.0-70.0) H 01/16/19 05:00 Seg Neutrophils # 10.8 K/mm3 (1.8-7.7) H 01/16/19 05:00 PT 23.7 Sec. (12.2-14.9) H 01/14/19 18:50 INR 1.97 (0.87-1.13) H 01/14/19 18:50 APTT < 20.0 Sec. (24.2-36.6) L 01/14/19 18:50 Heparin Anti-Xa Level 0.37 U.I./ml (0.3-0.7) 01/16/19 05:00 Sodium 137 mmol/L (137-145) 01/16/19 05:00 Potassium 3.8 mmol/L (3.6-5.0) 01/16/19 05:00 Chloride 100.3 mmol/L (98-107) 01/16/19 05:00 Carbon Dioxide 23 mmol/L (22-30) 01/16/19 05:00 Anion Gap 18 mmol/L 01/16/19 05:00 BUN 23 mg/dL (9-20) H 01/16/19 05:00 Creatinine 1.0 mg/dL (0.8-1.5) 01/16/19 05:00 Estimated GFR > 60 ml/min 01/16/19 05:00 BUN/Creatinine Ratio 23 % 01/16/19 05:00 Glucose 68 mg/dL (75-100) L 01/16/19 05:00 POC Glucose 72 (70-105) 01/16/19 08:02 Calcium 7.8 mg/dL (8.4-10.2) L 01/16/19 05:00 Magnesium 2.00 mg/dL (1.7-2.3) 01/14/19 18:50 Total Bilirubin 0.40 mg/dL (0.1-1.2) 01/14/19 18:50 AST 70 units/L (5-40) H 01/14/19 18:50 ALT 73 units/L (7-56) H 01/14/19 18:50 Alkaline Phosphatase 66 units/L (35-129) 01/14/19 18:50 Total Creatine Kinase 294 units/L (55-170) H 01/15/19 14:45 CK-MB (CK-2) 9.3 ng/mL (0.0-4.0) H 01/15/19 14:45 CK-MB (CK-2) Rel Index 3.1 (0-4) 01/15/19 14:45 Troponin T 3.300 ng/mL (0.00-0.029) H* D 01/15/19 14:45 NT-Pro-B Natriuret Pep 8727 pg/mL (0-900) H 01/14/19 18:50 Total Protein 6.0 g/dL (6.3-8.2) L 01/14/19 18:50 Albumin 2.8 g/dL (3.9-5) L 01/14/19 18:50 Albumin/Globulin Ratio 0.9 % 01/14/19 18:50 Triglycerides 106 mg/dL (2-149) 01/14/19 18:50 Cholesterol 139 mg/dL (50-199) 01/14/19 18:50 LDL Cholesterol Direct 103 mg/dL (50-130) 01/14/19 18:50 HDL Cholesterol 31 mg/dL (40-59) L 01/14/19 18:50 Cholesterol/HDL Ratio 4.48 % 01/14/19 18:50 TSH 3.710 mlU/mL (0.270-4.200) 01/14/19 18:50 Free T4 1.67 ng/dL (0.76-1.46) H 01/14/19 18:50 Urine Color Yellow (Yellow) 01/15/19 05:11 Urine Turbidity Slightly-cloudy (Clear) 01/15/19 05:11 Urine pH 5.0 (5.0-7.0) 01/15/19 05:11 Ur Specific [place] 1.046 (1.003-1.030) H 01/15/19 05:11 Urine Protein <15 mg/dl mg/dL (Negative) 01/15/19 05:11 Urine Glucose (UA) 50 mg/dL (Negative) 01/15/19 05:11 Urine Ketones Neg mg/dL (Negative) 01/15/19 05:11 Urine Blood Mod (Negative) 01/15/19 05:11 Urine Nitrite Neg (Negative) 01/15/19 05:11 Urine Bilirubin Neg (Negative) 01/15/19 05:11 Urine Urobilinogen < 2.0 mg/dL (<2.0) 01/15/19 05:11 Ur Leukocyte Esterase Neg (Negative) 01/15/19 05:11 Urine WBC (Auto) 19.0 /HPF (0.0-6.0) H 01/15/19 05:11 Urine RBC (Auto) 6.0 /HPF (0.0-6.0) 01/15/19 05:11 U Epithel Cells (Auto) < 1.0 /HPF (0-13.0) 01/15/19 05:11 Urine Mucus Few /HPF 01/15/19 05:11
[2019-01-16] MEDS: ZESTRIL PO SCH (11:39)
[2019-01-16] MEDS ORDERED: HEPARIN/ 0.45% NACL-25,000 UNIT/500 ML 25,000 UNIT/500 ML BAG IV SCH ×2 (12:00)
[2019-01-16] MEDS: COREG PO SCH ×2 (12:10→23:05)
--- NOTE | 2019-01-16 12:14 | Progress Note ---
Assessment and Plan - Patient Problems (1) Acute ST elevation myocardial infarction (STEMI) of anterior wall Current Visit: Yes Status: Acute Plan to address problem: Patient is status post primary angioplasty and stenting of his subacute occlusion of the LAD at its ostium. Admitted to the hospital with resultant heart failure and cardiogenic shock. Severe ischemic cardiomyopathy, with left ventricular ejection fraction less than 15-20%. Currently on intra-aortic balloon pump support. Clinically fluid overload appears to have resolved, no shortness of breath, and no lower extremity edema. If interested blood pressure remains stable, we will begin to wean off and discontinue balloon pump tomorrow. Continue intravenous heparin at low intensity. Continue aspirin and Brilinta. Continue high-dose statin. We will start low dose carvedilol, and add lisinopril in the next 24-48 hours as soon as blood pressure can tolerate. Subjective Date of service: 01/16/19 Interval history: The patient is awake, alert, uncomfortable. He remains on intra-aortic balloon pump. Intrinsic blood pressure has improved, and is currently 95 systolic. Objective Vital Signs Temp Pulse Resp BP Pulse Ox 01/16/19 12:10 92 H 110/65 01/16/19 11:00 99 H 24 149/77 100 01/16/19 10:46 101 H 26 H 149/77 100 01/16/19 10:30 94 H 24 149/77 100 01/16/19 10:16 103 H 27 H 149/77 99 01/16/19 10:00 90 21 149/59 100 01/16/19 09:52 90 122/66 01/16/19 09:51 88 121/65 01/16/19 09:46 90 20 149/59 100 01/16/19 09:30 89 18 149/59 100 01/16/19 09:16 91 H 19 149/59 100 01/16/19 09:03 97.5 F L 90 21 149/59 100 01/16/19 09:00 92 H 21 149/59 100 01/16/19 08:45 93 H 19 149/59 100 01/16/19 08:30 91 H 21 153/59 100 01/16/19 08:15 95 H 24 157/55 100 01/16/19 08:06 97.5 F L 101 H 23 160/58 100 01/16/19 08:00 96 H 17 154/54 100 01/16/19 07:45 92 H 17 154/54 99 01/16/19 07:30 93 H 17 140/61 99 01/16/19 07:03 98 H 25 H 142/77 100 01/16/19 07:00 98 H 21 142/77 98 01/16/19 06:30 94 H 22 140/61 100 01/16/19 06:00 94 H 22 146/69 100 01/16/19 05:30 99 H 23 144/75 100 01/16/19 05:23 100 01/16/19 05:00 97 H 25 H 136/70 100 01/16/19 04:30 95 H 24 147/68 100 01/16/19 04:22 25 H 100 01/16/19 04:00 101 H 24 131/66 100 01/16/19 03:58 99 H 01/16/19 03:41 99.6 F 99 H 21 141/68 99 01/16/19 03:40 97.9 F 01/16/19 03:30 92 H 26 H 140/59 100 01/16/19 03:23 25 H 100 01/16/19 03:00 99.6 F 93 H 25 H 147/69 100 01/16/19 02:30 98 H 26 H 133/64 100 01/16/19 02:00 99.6 F 95 H 25 H 133/64 100 01/16/19 01:30 99.6 F 96 H 28 H 146/70 100 01/16/19 01:00 99.6 F 101 H 27 H 141/68 99 01/16/19 00:30 103 H 26 H 144/64 100 01/16/19 00:00 99.6 F 103 H 30 H 144/64 100 01/15/19 23:45 103 H 27 H 144/64 100 01/15/19 23:30 102 H 26 H 148/70 100 01/15/19 23:00 99.8 F H 99 H 27 H 145/60 99 01/15/19 22:30 101 H 26 H 128/64 99 01/15/19 22:00 98.1 F 105 H 27 H 140/56 99 01/15/19 21:30 99 H 24 132/62 99 01/15/19 21:00 98.1 F 104 H 26 H 149/65 98 01/15/19 20:30 100 H 24 134/59 100 01/15/19 20:00 98.1 F 94 H 25 H 139/67 98 01/15/19 19:56 98 01/15/19 19:30 96 H 26 H 146/57 100 01/15/19 19:00 98.1 F 100 H 25 H 124/68 99 01/15/19 18:30 104 H 27 H 131/71 99 01/15/19 18:00 99 H 27 H 131/71 99 01/15/19 17:30 98 H 15 121/70 100 01/15/19 17:00 98 H 16 129/63 100 01/15/19 16:30 100 H 25 H 133/69 100 01/15/19 16:01 98 H 30 H 132/69 99 01/15/19 16:00 99.3 F 96 H 25 H 132/69 99 01/15/19 15:30 99 H 28 H 151/67 100 01/15/19 15:00 100 H 24 142/57 100 01/15/19 14:30 95 H 24 134/64 100 01/15/19 14:00 95 H 24 139/60 100 01/15/19 13:30 95 H 20 141/62 100 01/15/19 13:15 93 H 20 142/58 100 01/15/19 13:00 94 H 21 142/58 100 01/15/19 12:45 96 H 20 148/68 100 01/15/19 12:31 97 H 35 H 181/82 100 01/15/19 12:15 113 H 37 H 181/82 97 - Physical Examination General: No Apparent Distress HEENT: Positive: PERRL Neck: Positive: neck supple Cardiac: Positive: Reg Rate and Rhythm Lungs: Positive: Decreased Breath Sounds Neuro: Positive: Grossly Intact Abdomen: Positive: Soft Skin: Positive: Clear Extremities: Absent: edema - Labs and Meds Cardiac Enzymes 01/15/19 Range/Units 14:45 CK-MB (CK-2) 9.3 H (0.0-4.0) ng/mL CBC 01/16/19 Range/Units 05:00 WBC 13.5 H (4.5-11.0) K/mm3 RBC 2.58 L (3.65-5.03) M/mm3 Hgb 8.4 L (11.8-15.2) gm/dl Hct 24.5 L (35.5-45.6) % Plt Count 228 (140-440) K/mm3 Lymph # 1.5 (1.2-5.4) K/mm3 [place] # 1.1 H (0.0-0.8) K/mm3 Eos # 0.0 (0.0-0.4) K/mm3 Baso # 0.1 (0.0-0.1) K/mm3 Comprehensive Metabolic Panel 01/15/19 01/16/19 Range/Units 14:45 05:00 Sodium 132 L 137 (137-145) mmol/L Potassium 4.7 3.8 (3.6-5.0) mmol/L Chloride 98.2 100.3 (98-107) mmol/L Carbon Dioxide 23 23 (22-30) mmol/L BUN 31 H 23 H (9-20) mg/dL Creatinine 1.2 1.0 (0.8-1.5) mg/dL Glucose 200 H 68 L (75-100) mg/dL Calcium 8.0 L 7.8 L (8.4-10.2) mg/dL
--- NOTE | 2019-01-16 12:21 | Progress Note ---
Subjective Date of service: 01/16/19 Objective - Constitutional Vitals: Vital Signs - 12hr 01/16/19 01/16/19 01/16/19 00:30 01:00 01:30 Temperature 99.6 F 99.6 F Pulse Rate 103 H 101 H 96 H Respiratory 26 H 27 H 28 H Rate Blood Pressure 144/64 141/68 146/70 O2 Sat by Pulse 100 99 100 Oximetry 01/16/19 01/16/19 01/16/19 02:00 02:30 03:00 Temperature 99.6 F 99.6 F Pulse Rate 95 H 98 H 93 H Respiratory 25 H 26 H 25 H Rate Blood Pressure 133/64 133/64 147/69 O2 Sat by Pulse 100 100 100 Oximetry 01/16/19 01/16/19 01/16/19 03:23 03:30 03:40 Temperature 97.9 F Pulse Rate 92 H Respiratory 25 H 26 H Rate Blood Pressure 140/59 O2 Sat by Pulse 100 100 Oximetry 01/16/19 01/16/19 01/16/19 03:41 03:58 04:00 Temperature 99.6 F Pulse Rate 99 H 99 H 101 H Respiratory 21 24 Rate Blood Pressure 141/68 131/66 O2 Sat by Pulse 99 100 Oximetry 01/16/19 01/16/19 01/16/19 04:22 04:30 05:00 Temperature Pulse Rate 95 H 97 H Respiratory 25 H 24 25 H Rate Blood Pressure 147/68 136/70 O2 Sat by Pulse 100 100 100 Oximetry 01/16/19 01/16/19 01/16/19 05:23 05:30 06:00 Temperature Pulse Rate 99 H 94 H Respiratory 23 22 Rate Blood Pressure 144/75 146/69 O2 Sat by Pulse 100 100 100 Oximetry 01/16/19 01/16/19 01/16/19 06:30 07:00 07:03 Temperature Pulse Rate 94 H 98 H 98 H Respiratory 22 21 25 H Rate Blood Pressure 140/61 142/77 142/77 O2 Sat by Pulse 100 98 100 Oximetry 01/16/19 01/16/19 01/16/19 07:30 07:45 08:00 Temperature Pulse Rate 93 H 92 H 96 H Respiratory 17 17 17 Rate Blood Pressure 140/61 154/54 154/54 O2 Sat by Pulse 99 99 100 Oximetry 01/16/19 01/16/19 01/16/19 08:06 08:15 08:30 Temperature 97.5 F L Pulse Rate 101 H 95 H 91 H Respiratory 23 24 21 Rate Blood Pressure 160/58 157/55 153/59 O2 Sat by Pulse 100 100 100 Oximetry 01/16/19 01/16/19 01/16/19 08:45 09:00 09:03 Temperature 97.5 F L Pulse Rate 93 H 92 H 90 Respiratory 19 21 21 Rate Blood Pressure 149/59 149/59 149/59 O2 Sat by Pulse 100 100 100 Oximetry 01/16/19 01/16/19 01/16/19 09:16 09:30 09:46 Temperature Pulse Rate 91 H 89 90 Respiratory 19 18 20 Rate Blood Pressure 149/59 149/59 149/59 O2 Sat by Pulse 100 100 100 Oximetry 01/16/19 01/16/19 01/16/19 09:51 09:52 10:00 Temperature Pulse Rate 88 90 90 Respiratory 21 Rate Blood Pressure 121/65 122/66 149/59 O2 Sat by Pulse 100 Oximetry 01/16/19 01/16/19 01/16/19 10:16 10:30 10:46 Temperature Pulse Rate 103 H 94 H 101 H Respiratory 27 H 24 26 H Rate Blood Pressure 149/77 149/77 149/77 O2 Sat by Pulse 99 100 100 Oximetry 01/16/19 01/16/19 11:00 12:10 Temperature Pulse Rate 99 H 92 H Respiratory 24 Rate Blood Pressure 149/77 110/65 O2 Sat by Pulse 100 Oximetry - Labs CBC & Chem 7: 01/16/19 05:00 01/16/19 05:00 Labs: Abnormal lab results 01/15/19 01/15/19 01/15/19 Range/Units 14:45 16:19 20:39 WBC (4.5-11.0) K/mm3 RBC (3.65-5.03) M/mm3 Hgb (11.8-15.2) gm/dl Hct (35.5-45.6) % MCV (84-94) fl RDW (13.2-15.2) % Lymph % (Auto) (13.4-35.0) % [place] % (Auto) (0.0-7.3) % [place] # (0.0-0.8) K/mm3 Seg Neutrophils % (40.0-70.0) % Seg Neutrophils # (1.8-7.7) K/mm3 Heparin Anti-Xa Level (0.3-0.7) U.I./ml Sodium 132 L (137-145) mmol/L BUN 31 H (9-20) mg/dL Glucose 200 H (75-100) mg/dL POC Glucose 170 H 159 H (70-105) Calcium 8.0 L (8.4-10.2) mg/dL Total Creatine Kinase 294 H (55-170) units/L CK-MB (CK-2) 9.3 H (0.0-4.0) ng/mL Troponin T 3.300 H* D (0.00-0.029) ng/mL 01/15/19 01/16/19 01/16/19 Range/Units 21:05 05:00 05:00 WBC 13.5 H (4.5-11.0) K/mm3 RBC 2.58 L (3.65-5.03) M/mm3 Hgb 8.4 L (11.8-15.2) gm/dl Hct 24.5 L (35.5-45.6) % MCV 95 H (84-94) fl RDW 16.4 H (13.2-15.2) % Lymph % (Auto) 11.1 L (13.4-35.0) % [place] % (Auto) 8.4 H (0.0-7.3) % [place] # 1.1 H (0.0-0.8) K/mm3 Seg Neutrophils % 80.1 H (40.0-70.0) % Seg Neutrophils # 10.8 H (1.8-7.7) K/mm3 Heparin Anti-Xa Level 0.71 H (0.3-0.7) U.I./ml Sodium (137-145) mmol/L BUN 23 H (9-20) mg/dL Glucose 68 L (75-100) mg/dL POC Glucose (70-105) Calcium 7.8 L (8.4-10.2) mg/dL Total Creatine Kinase (55-170) units/L CK-MB (CK-2) (0.0-4.0) ng/mL Troponin T (0.00-0.029) ng/mL 03/17/19 Range/Units 11:35 WBC (4.5-11.0) K/mm3 RBC (3.65-5.03) M/mm3 Hgb (11.8-15.2) gm/dl Hct (35.5-45.6) % MCV (84-94) fl RDW (13.2-15.2) % Lymph % (Auto) (13.4-35.0) % [place] % (Auto) (0.0-7.3) % [place] # (0.0-0.8) K/mm3 Seg Neutrophils % (40.0-70.0) % Seg Neutrophils # (1.8-7.7) K/mm3 Heparin Anti-Xa Level (0.3-0.7) U.I./ml Sodium (137-145) mmol/L BUN (9-20) mg/dL Glucose (75-100) mg/dL POC Glucose 237 H (70-105) Calcium (8.4-10.2) mg/dL Total Creatine Kinase (55-170) units/L CK-MB (CK-2) (0.0-4.0) ng/mL Troponin T (0.00-0.029) ng/mL Medications & Allergies - Medications Allergies/Adverse Reactions: Allergies No Known Allergies Allergy (Verified 01/14/19 18:12) Home Medications: Home Medications Medication Instructions Recorded Confirmed Last Taken Type Calcium Citrate/Vitamin D3 5,000 tab PO DAILY 01/15/19 01/15/19 01/14/19 History am Glyburide 3 mg PO DAILY 01/15/19 01/15/19 01/14/19 History am Metformin ER (Nf) 1,000 mg PO BID 01/15/19 01/15/19 01/14/19 History am Active Medications: Generic Name Dose Route Start Last Admin Trade Name Freq PRN Reason Stop Dose Admin Albuterol 2.5 mg 01/14/19 18:57 Proventil IH Q4HRT PRN Shortness Of Breath Aspirin 162 mg 01/15/19 10:00 01/16/19 09:51 Baby Aspirin PO 162 mg QDAY ANAYELI Administration Atorvastatin Calcium 40 mg 01/14/19 22:00 01/15/19 22:51 Lipitor PO 40 mg QHS ANAYELI Administration Carvedilol 3.125 mg 01/16/19 12:00 01/16/19 12:10 Coreg PO 3.125 mg BID ANAYELI Administration Clopidogrel Bisulfate 75 mg 01/15/19 10:00 01/16/19 09:51 Plavix PO 75 mg QDAY ANAYELI Administration Dextrose 50 ml 01/15/19 07:10 D50w (25gm) Syringe IV PRN PRN Hypoglycemia Furosemide 40 mg 01/17/19 10:00 Lasix IV QDAY ANAYELI Guaifenesin 10 ml 01/14/19 21:23 01/15/19 17:29 Guaifenesin Dm Syrup PO 10 ml Q4H PRN Administration Cough Nitroglycerin/Dextrose 50 mg in 250 mls @ 3 mls/hr 01/14/19 19:16 01/15/19 11:00 Tridil Drip 50mg/250ml IV 01/18/19 06:35 0 mcg/min TITR ONE 0 mls/hr Titration Protocol 10 MCG/MIN Azithromycin 500 mg/ Sodium 250 mls @ 250 mls/hr 01/14/19 22:00 01/15/19 21:03 Chloride IV 250 mls/hr Q24HR@2200 ANAYELI Administration Ceftriaxone Sodium 1 gm in 50 mls @ 100 mls/hr 01/14/19 22:00 01/15/19 21:02 Rocephin/Ns 1 Gm/50 Ml IV 100 mls/hr Q24HR@2200 ANAYELI Administration Protocol Sodium Chloride 1,000 mls @ 40 mls/hr 01/15/19 13:00 01/15/19 12:00 Nacl 0.9% 1000 Ml IV 40 mls/hr DIRECT ANAYELI Administration Heparin Sodium/Sodium Chloride 25,000 unit in 500 mls @ 16 mls/hr 01/16/19 12:00 01/16/19 11:30 Heparin/ 0.45% Nacl-25,000 Unit/500 Ml IV 700 units/hr TITR ANAYELI 14 mls/hr Administration Protocol 800 UNITS/HR Insulin Glargine 10 units 01/16/19 22:00 Lantus SUB-Q QHS ANAYELI Insulin Human Lispro 0 unit 01/15/19 07:30 01/16/19 12:09 Humalog SUB-Q 4 unit ACHS ANAYELI Administration Protocol Isosorbide Mononitrate 30 mg 01/15/19 10:00 01/16/19 09:52 Imdur PO 30 mg QDAY ANAYELI Administration Lisinopril 2.5 mg 01/15/19 10:00 01/16/19 11:39 Zestril PO Not Given QDAY ANAYELI Morphine Sulfate 2 mg 01/14/19 18:57 Morphine IV Q4H PRN Pain, Moderate (4-6) Ondansetron HCl 4 mg 01/14/19 18:57 01/14/19 22:22 Zofran IV 4 mg Q8H PRN Administration Nausea And Vomiting Pantoprazole Sodium 40 mg 01/14/19 20:00 01/16/19 09:51 Protonix PO 40 mg QDAY ANAYELI Administration Sodium Chloride 10 ml 01/14/19 22:00 01/16/19 10:15 Sodium Chloride Flush Syringe 10 Ml IV 10 ml BID ANAYELI Administration Sodium Chloride 10 ml 01/14/19 18:57 Sodium Chloride Flush Syringe 10 Ml IV PRN PRN LINE FLUSH Spironolactone 25 mg 01/15/19 10:00 01/16/19 09:51 Aldactone PO 25 mg QDAY ANAYELI Administration
[2019-01-16] MEDS: CEPACOL X STRENGTH MM PRN ×2 (16:08→19:29)
[2019-01-16] MEDS: ROCEPHIN/NS 1 GM/50 ML 1 GM/50 ML BAG IV SCH (23:01)
[2019-01-16] MEDS: ZITHROMAX 500 MG in NACL 0.9% 250ML 250 ML IV SCH (23:02)
[2019-01-17 03:51] LABS: Basophils # (Auto) 0.1 K/mm3 (0.0-0.1); Basophils % (Auto) 0.5 % (0.0-1.8); Eosinophils % (Auto) 0.4 % (0.0-4.3); Hemoglobin 7.3 gm/dl (11.8-15.2); Lymphocytes # (Auto) 1.3 K/mm3 (1.2-5.4); Lymphocytes % (Auto) 11.2 % (13.4-35.0); Mean Corpuscular HGB Conc 33 % (32-34); Mean Corpuscular Volume 95 fl (84-94); Monocytes # (Auto) 1.1 K/mm3 (0.0-0.8); Monocytes % (Auto) 9.8 % (0.0-7.3); Platelet Count 197 K/mm3 (140-440); Red Blood Count 2.33 M/mm3 (3.65-5.03)
[2019-01-17 04:09] LABS: Alanine Aminotransferase 77 units/L (7-56); Albumin 2.4 g/dL (3.9-5)
[2019-01-17 04:13] LABS: Bilirubin,Direct < 0.2 mg/dL (0-0.2)
[2019-01-17] MEDS ORDERED: LEVOPHED DRIP 4 MG/NS 250 ML 4 MG/250 ML BAG IV SCH (06:00)
[2019-01-17] MEDS: HumaLOG SUB-Q SCH ×4 (08:00→22:37)
[2019-01-17] MEDS ORDERED: LASIX ONE (09:09)
[2019-01-17] MEDS: BABY ASPIRIN PO SCH (09:44)
[2019-01-17] MEDS ORDERED: LASIX IV STA (09:44)
[2019-01-17] MEDS: ALDACTONE PO SCH (09:45)
[2019-01-17] MEDS: ZESTRIL PO SCH (09:45)
[2019-01-17] MEDS: PLAVIX PO SCH (09:46)
[2019-01-17] MEDS: IMDUR PO SCH (09:46)
[2019-01-17] MEDS: COREG PO SCH (09:47)
[2019-01-17] MEDS: HEPARIN/ 0.45% NACL-25,000 UNIT/500 ML 25,000 UNIT/500 ML BAG IV SCH (10:00)
[2019-01-17] MEDS ORDERED: LASIX IV SCH (10:00)
--- NOTE | 2019-01-17 10:49 | Progress Note ---
Assessment and Plan - Patient Problems (1) Acute ST elevation myocardial infarction (STEMI) of anterior wall Current Visit: Yes Status: Acute Plan to address problem: We will treat persistent pulmonary edema with aggressive diuresis, intravenous morphine and respiratory support as recommended by pulmonary service. We will continue intra-aortic balloon pump, heparin, and add intravenous dobutamine. Subjective Date of service: 01/17/19 Interval history: The patient complains of worsening shortness of breath this morning, chest x-ray shows persistent bilateral pulmonary edema. He also appears to be still dependent on the balloon pump one-to-one counterpulsation. Objective Vital Signs Temp Pulse Pulse Resp BP Pulse Ox 01/17/19 10:30 98 H 20 126/67 100 01/17/19 10:15 107 H 20 134/78 100 01/17/19 10:01 110 H 22 112/58 94 01/17/19 09:47 105 H 117/65 01/17/19 09:46 107 H 117/65 01/17/19 09:45 106 H 27 H 117/65 95 01/17/19 09:31 112 H 30 H 143/77 93 01/17/19 09:15 134 H 23 149/89 100 01/17/19 09:01 143 H 38 H 149/89 87 01/17/19 08:45 129 H 27 H 115/67 90 01/17/19 08:30 121 H 34 H 159/84 90 01/17/19 08:15 121 H 31 H 139/103 90 01/17/19 08:00 99.7 F H 117 H 32 H 170/80 82 L 01/17/19 07:45 115 H 27 H 170/80 97 01/17/19 07:31 99 H 30 H 170/80 93 01/17/19 07:15 97 H 20 170/80 93 01/17/19 07:01 109 H 21 170/80 93 01/17/19 06:45 96 H 20 159/84 90 01/17/19 06:31 103 H 12 159/84 91 01/17/19 06:15 101 H 14 159/84 94 01/17/19 06:01 93 H 19 159/84 95 18 06:00 105 H 18 98 01/17/19 05:45 88 25 H 135/63 94 01/17/19 05:30 93 H 27 H 135/63 95 01/17/19 05:16 95 H 21 142/73 96 01/17/19 05:00 92 H 19 135/63 95 01/17/19 04:46 94 H 25 H 142/73 98 01/17/19 04:30 96 H 13 142/73 97 01/17/19 04:16 103 H 28 H 142/73 98 01/17/19 04:00 98.8 F 106 H 97 H 18 142/73 99 01/17/19 03:46 100 H 28 H 142/73 97 01/17/19 03:30 91 H 29 H 142/73 98 01/17/19 03:16 88 27 H 142/73 96 01/17/19 03:00 99 H 17 133/60 96 01/17/19 02:46 92 H 15 133/60 97 01/17/19 02:30 94 H 28 H 133/60 95 01/17/19 02:16 91 H 23 133/60 93 01/17/19 02:00 92 H 98 H 26 H 133/60 95 01/17/19 01:46 93 H 27 H 133/60 96 01/17/19 01:30 100 H 17 133/60 95 01/17/19 01:16 92 H 29 H 133/60 96 01/17/19 01:00 101 H 38 H 140/68 95 01/17/19 00:46 103 H 27 H 140/68 93 01/17/19 00:30 99 H 29 H 152/78 90 01/17/19 00:16 99 H 33 H 152/78 96 01/17/19 00:00 98.4 F 101 H 94 H 38 H 140/68 96 01/16/19 23:46 102 H 26 H 152/78 99 01/16/19 23:30 98 H 27 H 152/78 96 01/16/19 23:16 111 H 26 H 152/78 97 01/16/19 23:05 93 H 111/70 01/16/19 23:00 113 H 25 H 154/57 85 01/16/19 22:46 91 H 26 H 154/57 99 01/16/19 22:30 92 H 26 H 154/57 96 01/16/19 22:16 91 H 23 154/57 100 01/16/19 22:02 100 H 31 H 154/57 96 01/16/19 22:00 108 H 102 H 35 H 141/77 97 01/16/19 21:46 94 H 28 H 141/77 98 01/16/19 21:30 102 H 27 H 141/77 100 01/16/19 21:16 94 H 25 H 141/77 97 01/16/19 21:00 103 H 32 H 141/77 95 01/16/19 20:46 99 H 28 H 138/67 95 01/16/19 20:30 103 H 22 138/67 94 01/16/19 20:16 104 H 20 138/67 100 01/16/19 20:00 98 H 29 H 138/67 97 01/16/19 19:50 100.5 F H 01/16/19 19:46 99 H 31 H 135/67 95 01/16/19 19:43 99 01/16/19 19:30 104 H 33 H 135/67 98 01/16/19 19:16 102 H 36 H 135/67 97 01/16/19 19:00 96 H 28 H 135/67 96 01/16/19 18:46 100 H 34 H 141/71 95 01/16/19 18:30 99 H 27 H 141/71 96 01/16/19 18:16 102 H 29 H 141/71 96 01/16/19 18:00 101 H 30 H 148/68 95 01/16/19 17:46 100 H 30 H 148/68 96 01/16/19 17:30 101 H 34 H 148/68 98 01/16/19 17:16 102 H 28 H 148/68 97 01/16/19 17:00 109 H 26 H 139/71 96 01/16/19 16:46 114 H 35 H 139/71 91 01/16/19 16:30 104 H 32 H 139/71 96 01/16/19 16:16 99 H 28 H 139/71 93 01/16/19 16:00 99.5 F 98 H 26 H 140/76 94 01/16/19 15:46 112 H 19 140/76 95 01/16/19 15:30 98 H 25 H 140/76 95 01/16/19 15:16 108 H 30 H 140/76 95 01/16/19 15:06 113 H 31 H 140/76 98 01/16/19 15:00 102 H 30 H 136/61 99 01/16/19 14:46 107 H 22 136/62 98 01/16/19 14:30 102 H 26 H 136/62 98 01/16/19 14:16 104 H 30 H 136/61 97 01/16/19 14:00 108 H 33 H 136/61 98 01/16/19 13:46 105 H 29 H 136/62 96 01/16/19 13:30 116 H 18 136/62 97 01/16/19 13:16 86 21 136/62 99 01/16/19 13:00 95 H 21 136/62 100 01/16/19 12:46 100 H 22 135/66 99 01/16/19 12:30 97 H 29 H 135/66 98 01/16/19 12:16 100 H 22 135/66 99 01/16/19 12:12 98.3 F 94 H 21 135/66 98 01/16/19 12:10 92 H 110/65 01/16/19 12:00 97 H 24 142/74 98 01/16/19 11:46 98 H 22 142/74 97 01/16/19 11:30 96 H 20 149/77 100 01/16/19 11:16 96 H 22 149/77 100 01/16/19 11:00 99 H 24 149/77 100 01/16/19 10:46 101 H 26 H 149/77 100 - Physical Examination General: Other (mild respiratory distress) HEENT: Positive: PERRL Neck: Positive: neck supple Cardiac: Positive: Reg Rate and Rhythm Lungs: Positive: Decreased Breath Sounds, Rales Neuro: Positive: Grossly Intact Abdomen: Positive: Soft Skin: Positive: Clear Extremities: Absent: edema - Labs and Meds Cardiac Enzymes 01/17/19 Range/Units 03:34 AST 32 (5-40) units/L CBC 01/17/19 Range/Units 03:34 WBC 11.5 H (4.5-11.0) K/mm3 RBC 2.33 L (3.65-5.03) M/mm3 Hgb 7.3 L (11.8-15.2) gm/dl Hct 22.0 L (35.5-45.6) % Plt Count 197 (140-440) K/mm3 Lymph # 1.3 (1.2-5.4) K/mm3 [place] # 1.1 H (0.0-0.8) K/mm3 Eos # 0.0 (0.0-0.4) K/mm3 Baso # 0.1 (0.0-0.1) K/mm3 Comprehensive Metabolic Panel 01/17/19 Range/Units 03:34 Direct Bilirubin < 0.2 (0-0.2) mg/dL Indirect Bilirubin 0.0 mg/dL AST 32 (5-40) units/L ALT 77 H (7-56) units/L Alkaline Phosphatase 159 H (35-129) units/L Total Protein 5.1 L (6.3-8.2) g/dL Albumin 2.4 L (3.9-5) g/dL
--- NOTE | 2019-01-17 10:55 | Progress Note ---
Assessment and Plan Assessment and plan: STEMI -status post cardiac cath with primary angioplasty and stenting of his subacute occlusion of the LAD at its ostium. -On heparin drip, aspirin, plavix and statin -Cardiology following Cardiogenic shock -Blood pressure improved -Currently on intra-aortic balloon pump support. -dobutamine drip added -Cardiology following New systolic heart failure with acute exacerbation -EF per cardiac cath: 15-20% -IV Lasix resumed. cont BB, ACEI and aldactone. -cardiology following Sepsis secondary to Bilateral pneumonia versus UTI -Patient is on IV ceftriaxone and Azithro -blood culture neg so far Acute respiratory failure with hypoxia -probably 2/2 the CHF exacerbation -Continue Lasix and oxygen supplementation as needed DKA -resolved -cont SSI and Lantus and adjust as needed Hyponatremia, resolved Dyslipidemia -On statin Acute on chronic anemia -We will monitor H&H and transfuse as needed Disposition -Continue CCU care. D/c will depend on clinical course History Interval history: Patient was sob this morning so he had to be placed on BiPAP. Hospitalist Physical - Constitutional Vitals: Temp Pulse Resp BP Pulse Ox 99.7 F H 98 H 20 126/67 100 01/17/19 08:00 01/17/19 10:30 01/17/19 10:30 01/17/19 10:30 01/17/19 10:30 General appearance: Present: no acute distress - EENT Eyes: Present: PERRL, EOM intact ENT: hearing intact, clear oral mucosa - Neck Neck: Present: supple - Respiratory Respiratory effort: normal Respiratory: bilateral: diminished - Cardiovascular Rhythm: regular (tachycardia) Heart Sounds: Present: S1 & S2 - Extremities Extremities: No edema - Abdominal General gastrointestinal: soft, non-tender, non-distended, normal bowel sounds - Neurologic Neurologic: CNII-XII intact Results - Labs CBC & Chem 7: 01/17/19 03:34 01/16/19 05:00 Labs: Laboratory Last Values WBC 11.5 K/mm3 (4.5-11.0) H 01/17/19 03:34 RBC 2.33 M/mm3 (3.65-5.03) L 01/17/19 03:34 Hgb 7.3 gm/dl (11.8-15.2) L 01/17/19 03:34 Hct 22.0 % (35.5-45.6) L 01/17/19 03:34 MCV 95 fl (84-94) H 01/17/19 03:34 MCH 31 pg (28-32) 01/17/19 03:34 MCHC 33 % (32-34) 01/17/19 03:34 RDW 17.0 % (13.2-15.2) H 01/17/19 03:34 Plt Count 197 K/mm3 (140-440) 01/17/19 03:34 Lymph % (Auto) 11.2 % (13.4-35.0) L 01/17/19 03:34 [place] % (Auto) 9.8 % (0.0-7.3) H 01/17/19 03:34 Eos % (Auto) 0.4 % (0.0-4.3) 01/17/19 03:34 Baso % (Auto) 0.5 % (0.0-1.8) 01/17/19 03:34 Lymph # 1.3 K/mm3 (1.2-5.4) 01/17/19 03:34 [place] # 1.1 K/mm3 (0.0-0.8) H 01/17/19 03:34 Eos # 0.0 K/mm3 (0.0-0.4) 01/17/19 03:34 Baso # 0.1 K/mm3 (0.0-0.1) 01/17/19 03:34 Seg Neutrophils % 78.1 % (40.0-70.0) H 01/17/19 03:34 Seg Neutrophils # 9.0 K/mm3 (1.8-7.7) H 01/17/19 03:34 PT 23.7 Sec. (12.2-14.9) H 01/14/19 18:50 INR 1.97 (0.87-1.13) H 01/14/19 18:50 APTT < 20.0 Sec. (24.2-36.6) L 01/14/19 18:50 Heparin Anti-Xa Level 0.39 U.I./ml (0.3-0.7) 01/17/19 01:31 Sodium 137 mmol/L (137-145) 01/16/19 05:00 Potassium 3.8 mmol/L (3.6-5.0) 01/16/19 05:00 Chloride 100.3 mmol/L (98-107) 01/16/19 05:00 Carbon Dioxide 23 mmol/L (22-30) 01/16/19 05:00 Anion Gap 18 mmol/L 01/16/19 05:00 BUN 23 mg/dL (9-20) H 01/16/19 05:00 Creatinine 1.0 mg/dL (0.8-1.5) 01/16/19 05:00 Estimated GFR > 60 ml/min 01/16/19 05:00 BUN/Creatinine Ratio 23 % 01/16/19 05:00 Glucose 68 mg/dL (75-100) L 01/16/19 05:00 POC Glucose 136 (70-105) H 01/17/19 08:12 Calcium 7.8 mg/dL (8.4-10.2) L 01/16/19 05:00 Magnesium 2.00 mg/dL (1.7-2.3) 01/14/19 18:50 Total Bilirubin 0.20 mg/dL (0.1-1.2) 01/17/19 03:34 Direct Bilirubin < 0.2 mg/dL (0-0.2) 01/17/19 03:34 Indirect Bilirubin 0.0 mg/dL 01/17/19 03:34 AST 32 units/L (5-40) 01/17/19 03:34 ALT 77 units/L (7-56) H 01/17/19 03:34 Alkaline Phosphatase 159 units/L (35-129) H 01/17/19 03:34 Total Creatine Kinase 294 units/L (55-170) H 01/15/19 14:45 CK-MB (CK-2) 9.3 ng/mL (0.0-4.0) H 01/15/19 14:45 CK-MB (CK-2) Rel Index 3.1 (0-4) 01/15/19 14:45 Troponin T 3.300 ng/mL (0.00-0.029) H* D 01/15/19 14:45 NT-Pro-B Natriuret Pep 8727 pg/mL (0-900) H 01/14/19 18:50 Total Protein 5.1 g/dL (6.3-8.2) L 01/17/19 03:34 Albumin 2.4 g/dL (3.9-5) L 01/17/19 03:34 Albumin/Globulin Ratio 0.9 % 01/17/19 03:34 Triglycerides 106 mg/dL (2-149) 01/14/19 18:50 Cholesterol 139 mg/dL (50-199) 01/14/19 18:50 LDL Cholesterol Direct 103 mg/dL (50-130) 01/14/19 18:50 HDL Cholesterol 31 mg/dL (40-59) L 01/14/19 18:50 Cholesterol/HDL Ratio 4.48 % 01/14/19 18:50 TSH 3.710 mlU/mL (0.270-4.200) 01/14/19 18:50 Free T4 1.67 ng/dL (0.76-1.46) H 01/14/19 18:50 Urine Color Yellow (Yellow) 01/15/19 05:11 Urine Turbidity Slightly-cloudy (Clear) 01/15/19 05:11 Urine pH 5.0 (5.0-7.0) 01/15/19 05:11 Ur Specific [place] 1.046 (1.003-1.030) H 01/15/19 05:11 Urine Protein <15 mg/dl mg/dL (Negative) 01/15/19 05:11 Urine Glucose (UA) 50 mg/dL (Negative) 01/15/19 05:11 Urine Ketones Neg mg/dL (Negative) 01/15/19 05:11 Urine Blood Mod (Negative) 01/15/19 05:11 Urine Nitrite Neg (Negative) 01/15/19 05:11 Urine Bilirubin Neg (Negative) 01/15/19 05:11 Urine Urobilinogen < 2.0 mg/dL (<2.0) 01/15/19 05:11 Ur Leukocyte Esterase Neg (Negative) 01/15/19 05:11 Urine WBC (Auto) 19.0 /HPF (0.0-6.0) H 01/15/19 05:11 Urine RBC (Auto) 6.0 /HPF (0.0-6.0) 01/15/19 05:11 U Epithel Cells (Auto) < 1.0 /HPF (0-13.0) 01/15/19 05:11 Urine Mucus Few /HPF 01/15/19 05:11 Active Medications - Current Medications Current Medications: Generic Name Dose Route Start Last Admin Trade Name Freq PRN Reason Stop Dose Admin Albuterol 2.5 mg 01/14/19 18:57 Proventil IH Q4HRT PRN Shortness Of Breath Aspirin 162 mg 01/15/19 10:00 01/17/19 09:44 Baby Aspirin PO 162 mg QDAY ANAYELI Administration Atorvastatin Calcium 40 mg 01/14/19 22:00 01/16/19 23:03 Lipitor PO 40 mg QHS ANAYELI Administration Benzocaine/Menthol 1 each 01/16/19 16:03 01/16/19 19:29 Cepacol X Strength MM 1 each Q2HR PRN Administration Sore Throat Carvedilol 3.125 mg 01/16/19 12:00 01/17/19 09:47 Coreg PO 3.125 mg BID ANAYELI Administration Clopidogrel Bisulfate 75 mg 01/15/19 10:00 01/17/19 09:46 Plavix PO 75 mg QDAY ANAYELI Administration Dextrose 50 ml 01/15/19 07:10 D50w (25gm) Syringe IV PRN PRN Hypoglycemia Furosemide 40 mg 01/17/19 10:00 01/17/19 09:00 Lasix IV 40 mg QDAY ANAYELI Administration Guaifenesin 10 ml 01/14/19 21:23 01/16/19 17:40 Guaifenesin Dm Syrup PO 10 ml Q4H PRN Administration Cough Nitroglycerin/Dextrose 50 mg in 250 mls @ 3 mls/hr 01/14/19 19:16 01/15/19 11:00 Tridil Drip 50mg/250ml IV 01/18/19 06:35 0 mcg/min TITR ONE 0 mls/hr Titration Protocol 10 MCG/MIN Azithromycin 500 mg/ Sodium 250 mls @ 250 mls/hr 01/14/19 22:00 01/16/19 23:02 Chloride IV 250 mls/hr Q24HR@2200 ANAYELI Administration Ceftriaxone Sodium 1 gm in 50 mls @ 100 mls/hr 01/14/19 22:00 01/16/19 23:01 Rocephin/Ns 1 Gm/50 Ml IV 100 mls/hr Q24HR@2200 ANAYELI Administration Protocol Sodium Chloride 1,000 mls @ 40 mls/hr 01/15/19 13:00 01/15/19 12:00 Nacl 0.9% 1000 Ml IV 40 mls/hr DIRECT ANAYELI Administration Norepinephrine 4 mg in 250 mls @ 7.5 mls/hr 01/17/19 06:00 01/17/19 06:43 Levophed Drip 4 Mg/Ns 250 Ml IV 15 mcg/min TITR ANAYELI 56.25 mls/hr Titration Protocol 2 MCG/MIN Heparin Sodium (Porcine) 1,000 501 mls @ 0 mls/hr 01/17/19 09:00 unit/ Sodium Chloride IV DIRECT ANAYELI Insulin Glargine 10 units 01/16/19 22:00 01/16/19 23:01 Lantus SUB-Q 10 units QHS ANAYELI Administration Insulin Human Lispro 0 unit 01/15/19 07:30 01/16/19 23:02 Humalog SUB-Q Not Given ACHS [facility] Protocol Isosorbide Mononitrate 30 mg 01/15/19 10:00 01/17/19 09:46 Imdur PO 30 mg QDAY ANAYELI Administration Lisinopril 2.5 mg 01/15/19 10:00 01/17/19 09:45 Zestril PO 2.5 mg QDAY ANAYELI Administration Morphine Sulfate 2 mg 01/14/19 18:57 01/17/19 09:00 Morphine IV 2 mg Q4H PRN Administration Pain, Moderate (4-6) Ondansetron HCl 4 mg 01/14/19 18:57 01/14/19 22:22 Zofran IV 4 mg Q8H PRN Administration Nausea And Vomiting Pantoprazole Sodium 40 mg 01/14/19 20:00 01/16/19 09:51 Protonix PO 40 mg QDAY ANAYELI Administration Sodium Chloride 10 ml 01/14/19 22:00 01/16/19 10:15 Sodium Chloride Flush Syringe 10 Ml IV 10 ml BID ANAYELI Administration Sodium Chloride 10 ml 01/14/19 18:57 Sodium Chloride Flush Syringe 10 Ml IV PRN PRN LINE FLUSH Spironolactone 25 mg 01/15/19 10:00 01/17/19 09:45 Aldactone PO 25 mg QDAY ANAYELI Administration
[2019-01-17] MEDS: DOBUTREX DRIP 500MG/D5W 250ML 500 MG/250 ML BAG IV SCH (12:18)
[2019-01-17] MEDS: PROTONIX PO SCH (12:19)
[2019-01-17] MEDS: SODIUM CHLORIDE FLUSH SYRINGE 10 ML IV SCH ×2 (14:00→23:15)
[2019-01-17] MEDS: LEVOPHED DRIP 4 MG/NS 250 ML 4 MG/250 ML BAG IV SCH ×2 (14:15→21:22)
[2019-01-17] MEDS ORDERED: NACL 0.9% 500 ML 500 ML IV NR (16:35)
--- NOTE | 2019-01-17 16:47 | Progress Note ---
Assessment and Plan Imp: 1. Acute STEMI s/p PCI 2. CAD 3. Ischemic cardiomyopathy 4. Cardiogenic shock 5. Acute systolic CHF with pulm edema 6. Acute respiratory failure, hypoxia Rec: 1. S/p Lasix 2. On heparin drip per cardiology; IABP to stay in today 3. F/u CXR in AM 4. Support with BIPAP today; appears comfortable on this 5. Doubt pneumonia but will complete ~ 5 days of empiric ABX 6. Monitor H/H 7. Keep in ICU; remains critically ill Plan of care reviewed w/ patient, he understands/agrees CCT 31 minutes Subjective Date of service: 01/17/19 Principal diagnosis: CT Interval history: No events. Became more SOB this AM, requiring BIPAP w/ improvement. Received Lasix 60mg once with good UOP. No chest pain. Has a dry cough. Active Medications Albuterol (Proventil) 2.5 mg IH Q4HRT PRN PRN Reason: Shortness Of Breath Aspirin (Baby Aspirin) 162 mg PO QDAY [facility] Last Admin: 01/17/19 09:44 Dose: 162 mg Documented by: Atorvastatin Calcium (Lipitor) 40 mg PO QHS [facility] Last Admin: 01/16/19 23:03 Dose: 40 mg Documented by: Azithromycin (Zithromax) 500 mg PO Q24H [facility] Benzocaine/Menthol (Cepacol X Strength) 1 each MM Q2HR PRN PRN Reason: Sore Throat Last Admin: 01/16/19 19:29 Dose: 1 each Documented by: Clopidogrel Bisulfate (Plavix) 75 mg PO QDAY [facility] Last Admin: 01/17/19 09:46 Dose: 75 mg Documented by: Dextrose (D50w (25gm) Syringe) 50 ml IV PRN PRN PRN Reason: Hypoglycemia Furosemide (Lasix) 60 mg IV 0600,1800 [facility] Guaifenesin (Guaifenesin Dm Syrup) 10 ml PO Q4H PRN PRN Reason: Cough Last Admin: 01/16/19 17:40 Dose: 10 ml Documented by: Ceftriaxone Sodium (Rocephin/Ns 1 Gm/50 Ml) 1 gm in 50 mls @ 100 mls/hr IV Q24HR@2200 ANAYELI; Protocol Last Admin: 01/16/19 23:01 Dose: 100 mls/hr Documented by: Heparin Sodium (Porcine) 1,000 (unit/ Sodium Chloride) 501 mls @ 0 mls/hr IV DIRECT ANAYELI Dobutamine HCl/Dextrose (Dobutrex Drip 500mg/D5w 250ml) 500 mg in 250 mls @ 8.28 mls/hr IV TITR ANAYELI Last Admin: 01/17/19 12:18 Dose: 5 mcg/kg/min, 8.28 mls/hr Documented by: Heparin Sodium/Sodium Chloride (Heparin/ 0.45% Nacl-25,000 Unit/500 Ml) 25,000 unit in 500 mls @ 16 mls/hr IV TITR ANAYELI; Protocol Last Titration: 01/17/19 14:50 Dose: 600 units/hr, 12 mls/hr Documented by: Norepinephrine (Levophed Drip 4 Mg/Ns 250 Ml) 4 mg in 250 mls @ 7.5 mls/hr IV TITR ANAYELI; Protocol Last Titration: 01/17/19 15:30 Dose: 10 mcg/min, 37.5 mls/hr Documented by: Sodium Chloride (Nacl 0.9% 500 Ml) 500 mls @ 0 mls/hr IV ONCE NR Stop: 01/17/19 23:59 Insulin Glargine (Lantus) 10 units SUB-Q QHS [facility] Last Admin: 01/16/19 23:01 Dose: 10 units Documented by: Insulin Human Lispro (Humalog) 0 unit SUB-Q ACHS [facility]; Protocol Last Admin: 01/17/19 12:19 Dose: 4 unit Documented by: Isosorbide Mononitrate (Imdur) 30 mg PO QDAY [facility] Last Admin: 01/17/19 09:46 Dose: 30 mg Documented by: Morphine Sulfate (Morphine) 2 mg IV Q4H PRN PRN Reason: Pain, Moderate (4-6) Last Admin: 01/17/19 09:00 Dose: 2 mg Documented by: Ondansetron HCl (Zofran) 4 mg IV Q8H PRN PRN Reason: Nausea And Vomiting Last Admin: 01/14/19 22:22 Dose: 4 mg Documented by: Pantoprazole Sodium (Protonix) 40 mg PO QDAY [facility] Last Admin: 01/17/19 12:19 Dose: 40 mg Documented by: Sodium Chloride (Sodium Chloride Flush Syringe 10 Ml) 10 ml IV BID [facility] Last Admin: 01/16/19 10:15 Dose: 10 ml Documented by: Sodium Chloride (Sodium Chloride Flush Syringe 10 Ml) 10 ml IV PRN PRN PRN Reason: LINE FLUSH Spironolactone (Aldactone) 25 mg PO QDAY ANAYELI Last Admin: 01/17/19 09:45 Dose: 25 mg Documented by: Objective Vital Signs - 12hr 01/17/19 01/17/19 01/17/19 04:46 05:00 05:16 Temperature Pulse Rate 94 H 92 H 95 H Pulse Rate [ Left Radial] Respiratory 25 H 19 21 Rate Blood Pressure 142/73 135/63 142/73 O2 Sat by Pulse 98 95 96 Oximetry 01/17/19 01/17/19 01/17/19 05:30 05:45 06:00 Temperature Pulse Rate 93 H 88 Pulse Rate [ 105 H Left Radial] Respiratory 27 H 25 H 18 Rate Blood Pressure 135/63 135/63 O2 Sat by Pulse 95 94 98 Oximetry 01/17/19 01/17/19 01/17/19 06:01 06:15 06:31 Temperature Pulse Rate 93 H 101 H 103 H Pulse Rate [ Left Radial] Respiratory 19 14 12 Rate Blood Pressure 159/84 159/84 159/84 O2 Sat by Pulse 95 94 91 Oximetry 01/17/19 01/17/19 01/17/19 06:45 07:01 07:15 Temperature Pulse Rate 96 H 109 H 97 H Pulse Rate [ Left Radial] Respiratory 20 21 20 Rate Blood Pressure 159/84 170/80 170/80 O2 Sat by Pulse 90 93 93 Oximetry 01/17/19 01/17/19 01/17/19 07:31 07:45 08:00 Temperature 99.7 F H Pulse Rate 99 H 115 H 117 H Pulse Rate [ Left Radial] Respiratory 30 H 27 H 32 H Rate Blood Pressure 170/80 170/80 170/80 O2 Sat by Pulse 93 97 100 Oximetry 01/17/19 01/17/19 01/17/19 08:15 08:30 08:45 Temperature Pulse Rate 121 H 121 H 129 H Pulse Rate [ Left Radial] Respiratory 31 H 34 H 27 H Rate Blood Pressure 139/103 159/84 115/67 O2 Sat by Pulse 90 90 90 Oximetry 01/17/19 01/17/19 01/17/19 09:00 09:01 09:15 Temperature Pulse Rate 143 H 134 H Pulse Rate [ Left Radial] Respiratory 38 H 23 Rate Blood Pressure 126/67 149/89 149/89 O2 Sat by Pulse 100 87 100 Oximetry 01/17/19 01/17/19 01/17/19 09:31 09:45 09:46 Temperature Pulse Rate 112 H 106 H 107 H Pulse Rate [ Left Radial] Respiratory 30 H 27 H Rate Blood Pressure 143/77 117/65 117/65 O2 Sat by Pulse 93 95 Oximetry 01/17/19 01/17/19 01/17/19 09:47 10:00 10:01 Temperature Pulse Rate 105 H 110 H Pulse Rate [ Left Radial] Respiratory 25 H 22 Rate Blood Pressure 117/65 143/57 112/58 O2 Sat by Pulse 100 94 Oximetry 01/17/19 01/17/19 01/17/19 10:15 10:30 10:45 Temperature Pulse Rate 107 H 98 H 98 H Pulse Rate [ Left Radial] Respiratory 20 20 26 H Rate Blood Pressure 134/78 126/67 130/66 O2 Sat by Pulse 100 100 99 Oximetry 01/17/19 01/17/19 01/17/19 11:00 11:15 11:31 Temperature Pulse Rate 91 H 90 96 H Pulse Rate [ Left Radial] Respiratory 21 18 17 Rate Blood Pressure 126/60 126/57 131/69 O2 Sat by Pulse 100 100 100 Oximetry 01/17/19 01/17/19 01/17/19 11:45 12:00 12:01 Temperature 99.4 F Pulse Rate 93 H 86 86 Pulse Rate [ Left Radial] Respiratory 17 24 20 Rate Blood Pressure 130/61 128/57 128/57 O2 Sat by Pulse 100 100 100 Oximetry 01/17/19 01/17/19 01/17/19 12:15 12:30 12:45 Temperature Pulse Rate 86 95 H 117 H Pulse Rate [ Left Radial] Respiratory 19 19 34 H Rate Blood Pressure 134/57 129/60 129/60 O2 Sat by Pulse 99 99 100 Oximetry 01/17/19 01/17/19 01/17/19 13:00 13:01 13:15 Temperature Pulse Rate 125 H 108 H Pulse Rate [ Left Radial] Respiratory 16 25 H 18 Rate Blood Pressure 130/68 136/61 132/57 O2 Sat by Pulse 100 90 100 Oximetry 01/17/19 01/17/19 01/17/19 13:30 13:45 14:00 Temperature Pulse Rate 119 H 120 H 116 H Pulse Rate [ Left Radial] Respiratory 25 H 29 H 14 Rate Blood Pressure 131/71 133/68 125/62 O2 Sat by Pulse 100 82 L 100 Oximetry 01/17/19 01/17/19 01/17/19 14:01 14:15 14:31 Temperature Pulse Rate 105 H 106 H 101 H Pulse Rate [ Left Radial] Respiratory 14 17 17 Rate Blood Pressure 125/62 125/67 125/67 O2 Sat by Pulse 100 83 L 100 Oximetry 01/17/19 01/17/19 01/17/19 14:45 15:00 15:15 Temperature Pulse Rate 122 H 98 H 106 H Pulse Rate [ Left Radial] Respiratory 23 17 18 Rate Blood Pressure 125/67 130/63 118/63 O2 Sat by Pulse 84 99 99 Oximetry 01/17/19 01/17/19 01/17/19 15:30 15:45 16:00 Temperature 99.2 F Pulse Rate 117 H 102 H 120 H Pulse Rate [ Left Radial] Respiratory 23 15 20 Rate Blood Pressure 126/64 145/67 141/68 O2 Sat by Pulse 99 99 98 Oximetry 01/17/19 01/17/19 01/17/19 16:01 16:07 16:15 Temperature Pulse Rate 102 H 110 H Pulse Rate [ Left Radial] Respiratory 20 20 Rate Blood Pressure 141/68 126/64 O2 Sat by Pulse 98 99 99 Oximetry Constitutional: other (critically ill on BIPAP) Eyes: non-icteric ENT: oropharynx moist Neck: supple Ascultation: Bilateral: other (coarse BS bilaterally on BIPAP) Cardiovascular: other (tachy, RR; no mrg) Gastrointestinal: normoactive bowel sounds, soft, non-tender, non-distended Integumentary: normal Extremities: no cyanosis, no edema, pink and warm Neurologic: normal mental status, non-focal exam, pupils equal and round, CN II- XII normal Psychiatric: mood appropriate, affect normal CBC and BMP: 01/17/19 03:34 01/16/19 05:00 ABG, PT/INR, D-dimer: PT/INR, D-dimer PT 23.7 Sec. (12.2-14.9) H 01/14/19 18:50 INR 1.97 (0.87-1.13) H 01/14/19 18:50 Abnormal lab findings: Abnormal Labs 01/14/19 01/14/19 01/14/19 18:50 18:50 18:50 WBC RBC Hgb Hct MCV RDW Lymph % (Auto) [place] % (Auto) [place] # Seg Neutrophils % Seg Neutrophils # PT 23.7 H INR 1.97 H APTT < 20.0 L Heparin Anti-Xa Level Sodium 123 L Potassium 5.8 H Chloride 87.7 L Carbon Dioxide 13 L BUN 27 H Creatinine 1.7 H Glucose 474 H POC Glucose Calcium 8.2 L AST 70 H ALT 73 H Alkaline Phosphatase Total Creatine Kinase CK-MB (CK-2) Troponin T 1.780 H* NT-Pro-B Natriuret Pep 8727 H Total Protein 6.0 L Albumin 2.8 L HDL Cholesterol Free T4 1.67 H Ur Specific [place] Urine WBC (Auto) 01/14/19 01/14/19 01/14/19 18:50 18:50 21:12 WBC 13.9 H RBC 3.26 L Hgb 10.5 L Hct 31.9 L MCV 98 H RDW 17.0 H Lymph % (Auto) 8.3 L [place] % (Auto) [place] # Seg Neutrophils % 86.6 H Seg Neutrophils # 12.1 H PT INR APTT Heparin Anti-Xa Level Sodium Potassium Chloride Carbon Dioxide BUN Creatinine Glucose POC Glucose 437 H Calcium AST ALT Alkaline Phosphatase Total Creatine Kinase CK-MB (CK-2) Troponin T 1.760 H* NT-Pro-B Natriuret Pep Total Protein Albumin HDL Cholesterol 31 L Free T4 Ur Specific [place] Urine WBC (Auto) 01/14/19 01/14/19 01/14/19 21:42 23:05 23:40 WBC RBC Hgb Hct MCV RDW Lymph % (Auto) [place] % (Auto) [place] # Seg Neutrophils % Seg Neutrophils # PT INR APTT Heparin Anti-Xa Level Sodium 130 L D Potassium 5.4 H Chloride 90.9 L Carbon Dioxide 17 L BUN 28 H Creatinine Glucose 504 H* POC Glucose 372 H 389 H Calcium 8.2 L AST ALT Alkaline Phosphatase Total Creatine Kinase CK-MB (CK-2) Troponin T NT-Pro-B Natriuret Pep Total Protein Albumin HDL Cholesterol Free T4 Ur Specific [place] Urine WBC (Auto) 01/15/19 01/15/19 01/15/19 00:07 01:12 01:20 WBC RBC Hgb Hct MCV RDW Lymph % (Auto) [place] % (Auto) [place] # Seg Neutrophils % Seg Neutrophils # PT INR APTT Heparin Anti-Xa Level Sodium 134 L Potassium Chloride Carbon Dioxide 20 L BUN 29 H Creatinine Glucose 299 H POC Glucose 384 H 311 H Calcium 7.6 L AST ALT Alkaline Phosphatase Total Creatine Kinase CK-MB (CK-2) Troponin T NT-Pro-B Natriuret Pep Total Protein Albumin HDL Cholesterol Free T4 Ur Specific [place] Urine WBC (Auto) 01/15/19 01/15/19 01/15/19 01:20 02:29 03:10 WBC RBC Hgb Hct MCV RDW Lymph % (Auto) [place] % (Auto) [place] # Seg Neutrophils % Seg Neutrophils # PT INR APTT Heparin Anti-Xa Level 0.99 H Sodium Potassium Chloride Carbon Dioxide BUN Creatinine Glucose POC Glucose 289 H 227 H Calcium AST ALT Alkaline Phosphatase Total Creatine Kinase CK-MB (CK-2) Troponin T NT-Pro-B Natriuret Pep Total Protein Albumin HDL Cholesterol Free T4 Ur Specific [place] Urine WBC (Auto) 01/15/19 01/15/19 01/15/19 03:23 03:23 03:23 WBC 13.6 H RBC 3.01 L Hgb 9.5 L Hct 29.0 L MCV 96 H RDW 16.8 H Lymph % (Auto) 9.3 L [place] % (Auto) 10.1 H [place] # 1.4 H Seg Neutrophils % 80.3 H Seg Neutrophils # 10.9 H PT INR APTT Heparin Anti-Xa Level 0.85 H Sodium 133 L Potassium Chloride Carbon Dioxide 21 L BUN 30 H Creatinine Glucose 190 H POC Glucose Calcium 7.4 L AST ALT Alkaline Phosphatase Total Creatine Kinase CK-MB (CK-2) Troponin T NT-Pro-B Natriuret Pep Total Protein Albumin HDL Cholesterol Free T4 Ur Specific [place] Urine WBC (Auto) 01/15/19 01/15/19 01/15/19 04:49 05:11 05:50 WBC RBC Hgb Hct MCV RDW Lymph % (Auto) [place] % (Auto) [place] # Seg Neutrophils % Seg Neutrophils # PT INR APTT Heparin Anti-Xa Level Sodium Potassium Chloride Carbon Dioxide BUN Creatinine Glucose POC Glucose 171 H 118 H Calcium AST ALT Alkaline Phosphatase Total Creatine Kinase CK-MB (CK-2) Troponin T NT-Pro-B Natriuret Pep Total Protein Albumin HDL Cholesterol Free T4 Ur Specific [place] 1.046 H Urine WBC (Auto) 19.0 H 01/15/19 01/15/19 01/15/19 06:19 07:38 08:08 WBC RBC Hgb Hct MCV RDW Lymph % (Auto) [place] % (Auto) [place] # Seg Neutrophils % Seg Neutrophils # PT INR APTT Heparin Anti-Xa Level Sodium 134 L Potassium Chloride 97.6 L Carbon Dioxide 20 L BUN 30 H Creatinine Glucose POC Glucose 120 H 110 H Calcium 7.9 L AST ALT Alkaline Phosphatase Total Creatine Kinase CK-MB (CK-2) Troponin T NT-Pro-B Natriuret Pep Total Protein Albumin HDL Cholesterol Free T4 Ur Specific [place] Urine WBC (Auto) 01/15/19 01/15/19 01/15/19 11:24 14:45 16:19 WBC RBC Hgb Hct MCV RDW Lymph % (Auto) [place] % (Auto) [place] # Seg Neutrophils % Seg Neutrophils # PT INR APTT Heparin Anti-Xa Level Sodium 132 L Potassium Chloride Carbon Dioxide BUN 31 H Creatinine Glucose 200 H POC Glucose 173 H 170 H Calcium 8.0 L AST ALT Alkaline Phosphatase Total Creatine Kinase 294 H CK-MB (CK-2) 9.3 H Troponin T 3.300 H* D NT-Pro-B Natriuret Pep Total Protein Albumin HDL Cholesterol Free T4 Ur Specific [place] Urine WBC (Auto) 01/15/19 01/15/19 01/16/19 20:39 21:05 05:00 WBC 13.5 H RBC 2.58 L Hgb 8.4 L Hct 24.5 L MCV 95 H RDW 16.4 H Lymph % (Auto) 11.1 L [place] % (Auto) 8.4 H [place] # 1.1 H Seg Neutrophils % 80.1 H Seg Neutrophils # 10.8 H PT INR APTT Heparin Anti-Xa Level 0.71 H Sodium Potassium Chloride Carbon Dioxide BUN Creatinine Glucose POC Glucose 159 H Calcium AST ALT Alkaline Phosphatase Total Creatine Kinase CK-MB (CK-2) Troponin T NT-Pro-B Natriuret Pep Total Protein Albumin HDL Cholesterol Free T4 Ur Specific [place] Urine WBC (Auto) 01/16/19 01/16/19 01/16/19 05:00 11:35 16:37 WBC RBC Hgb Hct MCV RDW Lymph % (Auto) [place] % (Auto) [place] # Seg Neutrophils % Seg Neutrophils # PT INR APTT Heparin Anti-Xa Level Sodium Potassium Chloride Carbon Dioxide BUN 23 H Creatinine Glucose 68 L POC Glucose 237 H 224 H Calcium 7.8 L AST ALT Alkaline Phosphatase Total Creatine Kinase CK-MB (CK-2) Troponin T NT-Pro-B Natriuret Pep Total Protein Albumin HDL Cholesterol Free T4 Ur Specific [place] Urine WBC (Auto) 01/17/19 01/17/19 01/17/19 03:34 03:34 08:12 WBC 11.5 H RBC 2.33 L Hgb 7.3 L Hct 22.0 L MCV 95 H RDW 17.0 H Lymph % (Auto) 11.2 L [place] % (Auto) 9.8 H [place] # 1.1 H Seg Neutrophils % 78.1 H Seg Neutrophils # 9.0 H PT INR APTT Heparin Anti-Xa Level Sodium Potassium Chloride Carbon Dioxide BUN Creatinine Glucose POC Glucose 136 H Calcium AST ALT 77 H Alkaline Phosphatase 159 H Total Creatine Kinase CK-MB (CK-2) Troponin T NT-Pro-B Natriuret Pep Total Protein 5.1 L Albumin 2.4 L HDL Cholesterol Free T4 Ur Specific [place] Urine WBC (Auto) 01/17/19 01/17/19 01/17/19 11:29 14:42 15:37 WBC RBC Hgb Hct MCV RDW Lymph % (Auto) [place] % (Auto) [place] # Seg Neutrophils % Seg Neutrophils # PT INR APTT Heparin Anti-Xa Level 0.19 L Sodium Potassium Chloride Carbon Dioxide BUN Creatinine Glucose POC Glucose 228 H 293 H Calcium AST ALT Alkaline Phosphatase Total Creatine Kinase CK-MB (CK-2) Troponin T NT-Pro-B Natriuret Pep Total Protein Albumin HDL Cholesterol Free T4 Ur Specific [place] Urine WBC (Auto) Chest x-ray: report reviewed, image reviewed (CHF)
[2019-01-17] MEDS: LASIX IV SCH (18:28)
[2019-01-17] MEDS: HEPARIN 1,000 UNIT in NACL 0.9% 500 ML 500 ML IV SCH ×2 (19:20→21:20)
[2019-01-17] MEDS: CEPACOL X STRENGTH MM PRN (20:00)
[2019-01-17] MEDS: ZITHROMAX PO SCH (22:38)
[2019-01-17] MEDS: LANTUS SUB-Q SCH (22:39)
[2019-01-17] MEDS: ROCEPHIN/NS 1 GM/50 ML 1 GM/50 ML BAG IV SCH (23:02)
[2019-01-18] MEDS: CEPACOL X STRENGTH MM PRN ×4 (01:00→13:29)
--- NOTE | 2019-01-18 03:09 | XRay Report ---
PROCEDURE: XR CHEST 1V AP TECHNIQUE: PA and lateral chest radiographs were obtained. HISTORY: CHF COMPARISONS: 01/15/2019. FINDINGS: Heart: Normal. Mediastinum/Vessels: Normal. Lungs/Pleural space: Lungs are expanded. There are bilateral perihilar infiltrates slightly improved since the prior study. There is no pleural effusion or pneumothorax.. Bony thorax: No acute osseous abnormality. IMPRESSION: Heart size is normal.. Lungs are expanded. There are bilateral perihilar infiltrates slightly improved since the prior study . There is no pleural effusion or pneumothorax.. This document is electronically signed by Nik Waldron MD., January 18 2019 03:06:49 AM ET
[2019-01-18 04:39] LABS: Basophils % (Auto) 0.3 % (0.0-1.8); Eosinophils # (Auto) 0.1 K/mm3 (0.0-0.4); Eosinophils % (Auto) 0.4 % (0.0-4.3); Hematocrit 28.6 % (35.5-45.6); Hemoglobin 9.6 gm/dl (11.8-15.2); Lymphocytes # (Auto) 1.5 K/mm3 (1.2-5.4); Lymphocytes % (Auto) 11.4 % (13.4-35.0); Mean Corpuscular HGB Conc 34 % (32-34); Mean Corpuscular Volume 92 fl (84-94); Monocytes # (Auto) 1.6 K/mm3 (0.0-0.8); Monocytes % (Auto) 11.9 % (0.0-7.3); Platelet Count 228 K/mm3 (140-440); Red Blood Count 3.12 M/mm3 (3.65-5.03); Red Cell Distribution Width 17.6 % (13.2-15.2)
[2019-01-18 05:01] LABS: BUN/Creatinine Ratio 16; Blood Urea Nitrogen 14 mg/dL (9-20); Hemolysis Index 4
[2019-01-18] MEDS: LASIX IV SCH ×2 (05:29→19:53)
[2019-01-18] MEDS: LEVOPHED DRIP 4 MG/NS 250 ML 4 MG/250 ML BAG IV SCH ×4 (05:37→22:03)
[2019-01-18] MEDS: HumaLOG SUB-Q SCH ×4 (08:45→22:40)
[2019-01-18] MEDS ORDERED: POTASSIUM CHLORIDE FEEDTUBE ONE (10:00)
[2019-01-18] MEDS: SODIUM CHLORIDE FLUSH SYRINGE 10 ML IV SCH ×3 (10:00→22:12)
[2019-01-18] MEDS ORDERED: MAGNESIUM SULFATE 4GM/100ML 4 GM/100 ML BAG IV ONE (10:00)
[2019-01-18] MEDS: ALDACTONE PO SCH (10:40)
[2019-01-18] MEDS: PLAVIX PO SCH (10:44)
[2019-01-18] MEDS: BABY ASPIRIN PO SCH (10:44)
[2019-01-18] MEDS: PROTONIX PO SCH (10:44)
[2019-01-18] MEDS: IMDUR PO SCH (10:45)
--- NOTE | 2019-01-18 12:05 | Progress Note ---
Assessment and Plan Assessment and plan: Acute STEMI -status post cardiac cath with primary angioplasty and stenting of his subacute occlusion of the LAD at its ostium. -On heparin drip, aspirin, plavix and statin -Cardiology following Cardiogenic shock -Blood pressure improved -Currently on intra-aortic balloon pump support. -dobutamine drip added -Cardiology following Ischemic cardiomyopathy. New systolic heart failure with acute exacerbation -EF per cardiac cath: 15-20% -IV Lasix, cont BB, ACEI and aldactone. -cardiology following Sepsis secondary to Bilateral pneumonia versus UTI -Patient is on IV ceftriaxone and Azithro -blood culture neg so far Acute respiratory failure with hypoxia -probably 2/2 the CHF exacerbation and sepsis/pneumonia -Continue Lasix and continue BiPAP as clinically indicated DKA -resolved -cont SSI and Lantus and adjust as needed Hyponatremia, resolved Dyslipidemia -On statin Acute on chronic anemia -We will monitor H&H and transfuse as needed Disposition -Continue CCU care. Patient remains critically ill History Interval history: No new issues overnight. Hospitalist Physical - Constitutional Vitals: Temp Pulse Resp BP Pulse Ox 99.0 F 121 H 24 152/80 97 01/18/19 11:00 01/18/19 11:15 01/18/19 11:15 01/18/19 11:15 01/18/19 11:15 General appearance: Present: no acute distress - EENT Eyes: Present: PERRL, EOM intact ENT: hearing intact, clear oral mucosa, dentition normal - Neck Neck: Present: supple, normal ROM - Respiratory Respiratory effort: normal Respiratory: bilateral: CTA - Cardiovascular Rhythm: regular Heart Sounds: Present: S1 & S2. Absent: gallop, rub - Extremities Extremities: no ischemia, No edema, Full ROM - Abdominal General gastrointestinal: soft, non-tender, non-distended, normal bowel sounds - Integumentary Integumentary: Present: clear, warm, dry - Neurologic Neurologic: CNII-XII intact, moves all extremities Results - Labs CBC & Chem 7: 01/18/19 04:10 01/18/19 04:10 Labs: Laboratory Last Values WBC 13.2 K/mm3 (4.5-11.0) H 01/18/19 04:10 RBC 3.12 M/mm3 (3.65-5.03) L 01/18/19 04:10 Hgb 9.6 gm/dl (11.8-15.2) L 01/18/19 04:10 Hct 28.6 % (35.5-45.6) L D 01/18/19 04:10 MCV 92 fl (84-94) 01/18/19 04:10 MCH 31 pg (28-32) 01/18/19 04:10 MCHC 34 % (32-34) 01/18/19 04:10 RDW 17.6 % (13.2-15.2) H 01/18/19 04:10 Plt Count 228 K/mm3 (140-440) 01/18/19 04:10 Lymph % (Auto) 11.4 % (13.4-35.0) L 01/18/19 04:10 [place] % (Auto) 11.9 % (0.0-7.3) H 01/18/19 04:10 Eos % (Auto) 0.4 % (0.0-4.3) 01/18/19 04:10 Baso % (Auto) 0.3 % (0.0-1.8) 01/18/19 04:10 Lymph # 1.5 K/mm3 (1.2-5.4) 01/18/19 04:10 [place] # 1.6 K/mm3 (0.0-0.8) H 01/18/19 04:10 Eos # 0.1 K/mm3 (0.0-0.4) 01/18/19 04:10 Baso # 0.0 K/mm3 (0.0-0.1) 01/18/19 04:10 Seg Neutrophils % 76.0 % (40.0-70.0) H 01/18/19 04:10 Seg Neutrophils # 10.0 K/mm3 (1.8-7.7) H 01/18/19 04:10 PT 23.7 Sec. (12.2-14.9) H 01/14/19 18:50 INR 1.97 (0.87-1.13) H 01/14/19 18:50 APTT < 20.0 Sec. (24.2-36.6) L 01/14/19 18:50 Heparin Anti-Xa Level < 0.10 U.I./ml (0.3-0.7) L 01/18/19 09:15 Sodium 139 mmol/L (137-145) 01/18/19 04:10 Potassium 3.3 mmol/L (3.6-5.0) L 01/18/19 04:10 Chloride 99.9 mmol/L (98-107) 01/18/19 04:10 Carbon Dioxide 24 mmol/L (22-30) 01/18/19 04:10 Anion Gap 18 mmol/L 01/18/19 04:10 BUN 14 mg/dL (9-20) 01/18/19 04:10 Creatinine 0.9 mg/dL (0.8-1.5) 01/18/19 04:10 Estimated GFR > 60 ml/min 01/18/19 04:10 BUN/Creatinine Ratio 16 % 01/18/19 04:10 Glucose 260 mg/dL (75-100) H 01/18/19 04:10 POC Glucose 307 (70-105) H 01/18/19 11:49 Calcium 8.0 mg/dL (8.4-10.2) L 01/18/19 04:10 Magnesium 1.60 mg/dL (1.7-2.3) L 01/18/19 04:10 Total Bilirubin 0.20 mg/dL (0.1-1.2) 01/17/19 03:34 Direct Bilirubin < 0.2 mg/dL (0-0.2) 01/17/19 03:34 Indirect Bilirubin 0.0 mg/dL 01/17/19 03:34 AST 32 units/L (5-40) 01/17/19 03:34 ALT 77 units/L (7-56) H 01/17/19 03:34 Alkaline Phosphatase 159 units/L (35-129) H 01/17/19 03:34 Total Creatine Kinase 294 units/L (55-170) H 01/15/19 14:45 CK-MB (CK-2) 9.3 ng/mL (0.0-4.0) H 01/15/19 14:45 CK-MB (CK-2) Rel Index 3.1 (0-4) 01/15/19 14:45 Troponin T 3.300 ng/mL (0.00-0.029) H* D 01/15/19 14:45 NT-Pro-B Natriuret Pep 8727 pg/mL (0-900) H 01/14/19 18:50 Total Protein 5.1 g/dL (6.3-8.2) L 01/17/19 03:34 Albumin 2.4 g/dL (3.9-5) L 01/17/19 03:34 Albumin/Globulin Ratio 0.9 % 01/17/19 03:34 Triglycerides 106 mg/dL (2-149) 01/14/19 18:50 Cholesterol 139 mg/dL (50-199) 01/14/19 18:50 LDL Cholesterol Direct 103 mg/dL (50-130) 01/14/19 18:50 HDL Cholesterol 31 mg/dL (40-59) L 01/14/19 18:50 Cholesterol/HDL Ratio 4.48 % 01/14/19 18:50 TSH 3.710 mlU/mL (0.270-4.200) 01/14/19 18:50 Free T4 1.67 ng/dL (0.76-1.46) H 01/14/19 18:50 Urine Color Yellow (Yellow) 01/15/19 05:11 Urine Turbidity Slightly-cloudy (Clear) 01/15/19 05:11 Urine pH 5.0 (5.0-7.0) 01/15/19 05:11 Ur Specific [place] 1.046 (1.003-1.030) H 01/15/19 05:11 Urine Protein <15 mg/dl mg/dL (Negative) 01/15/19 05:11 Urine Glucose (UA) 50 mg/dL (Negative) 01/15/19 05:11 Urine Ketones Neg mg/dL (Negative) 01/15/19 05:11 Urine Blood Mod (Negative) 01/15/19 05:11 Urine Nitrite Neg (Negative) 01/15/19 05:11 Urine Bilirubin Neg (Negative) 01/15/19 05:11 Urine Urobilinogen < 2.0 mg/dL (<2.0) 01/15/19 05:11 Ur Leukocyte Esterase Neg (Negative) 01/15/19 05:11 Urine WBC (Auto) 19.0 /HPF (0.0-6.0) H 01/15/19 05:11 Urine RBC (Auto) 6.0 /HPF (0.0-6.0) 01/15/19 05:11 U Epithel Cells (Auto) < 1.0 /HPF (0-13.0) 01/15/19 05:11 Urine Mucus Few /HPF 01/15/19 05:11 Blood Type O POSITIVE 01/17/19 17:30 Antibody Screen Negative 01/17/19 17:30 Crossmatch See Detail 01/17/19 17:30 Active Medications - Current Medications Current Medications: Generic Name Dose Route Start Last Admin Trade Name Freq PRN Reason Stop Dose Admin Albuterol 2.5 mg 01/14/19 18:57 Proventil IH Q4HRT PRN Shortness Of Breath Aspirin 162 mg 01/15/19 10:00 01/18/19 10:44 Baby Aspirin PO 162 mg QDAY ANAYELI Administration Atorvastatin Calcium 40 mg 01/14/19 22:00 01/17/19 22:39 Lipitor PO 40 mg QHS ANAYELI Administration Azithromycin 500 mg 01/17/19 22:00 01/17/19 22:38 Zithromax PO 500 mg Q24H ANAYELI Administration Benzocaine/Menthol 1 each 01/16/19 16:03 01/18/19 05:36 Cepacol X Strength MM 1 each Q2HR PRN Administration Sore Throat Clopidogrel Bisulfate 75 mg 01/15/19 10:00 01/18/19 10:44 Plavix PO 75 mg QDAY ANAYELI Administration Dextrose 50 ml 01/15/19 07:10 D50w (25gm) Syringe IV PRN PRN Hypoglycemia Docusate Sodium 100 mg 01/18/19 12:00 Colace FEEDTUBE DAILY ANAYELI Furosemide 60 mg 01/17/19 18:00 01/18/19 05:29 Lasix IV 60 mg 0600,1800 ANAYELI Administration Guaifenesin 10 ml 01/14/19 21:23 01/16/19 17:40 Guaifenesin Dm Syrup PO 10 ml Q4H PRN Administration Cough Ceftriaxone Sodium 1 gm in 50 mls @ 100 mls/hr 01/14/19 22:00 01/17/19 23:02 Rocephin/Ns 1 Gm/50 Ml IV 100 mls/hr Q24HR@2200 ANAYELI Administration Protocol Heparin Sodium (Porcine) 1,000 501 mls @ 0 mls/hr 01/17/19 09:00 01/17/19 21:20 unit/ Sodium Chloride IV 15 mls/hr DIRECT ANAYELI Administration Dobutamine HCl/Dextrose 500 mg in 250 mls @ 8.28 mls/hr 01/17/19 12:00 01/17/19 12:18 Dobutrex Drip 500mg/D5w 250ml IV 5 mcg/kg/min TITR ANAYELI 8.28 mls/hr Administration 5 MCG/KG/MIN Heparin Sodium/Sodium Chloride 25,000 unit in 500 mls @ 16 mls/hr 01/17/19 12: 00 01/18/19 11:10 Heparin/ 0.45% Nacl-25,000 Unit/500 Ml IV 500 units/hr TITR ANAYELI 10 mls/hr Titration Protocol 800 UNITS/HR Norepinephrine 4 mg in 250 mls @ 7.5 mls/hr 01/17/19 15:00 01/18/19 05:37 Levophed Drip 4 Mg/Ns 250 Ml IV 10 mcg/min TITR ANAYELI 37.5 mls/hr Administration Protocol 2 MCG/MIN Magnesium Sulfate 4 gm in 100 mls @ 25 mls/hr 01/18/19 10:00 01/18/19 10:42 Magnesium Sulfate 4gm/100ml IV 01/18/19 13:59 25 mls/hr ONCE ONE Administration Insulin Glargine 20 units 01/18/19 11:00 Lantus SUB-Q DAILY [facility] Insulin Human Lispro 0 unit 01/15/19 07:30 01/18/19 08:45 Humalog SUB-Q 8 unit ACHS ANAYELI Administration Protocol Isosorbide Mononitrate 30 mg 01/15/19 10:00 01/18/19 10:45 Imdur PO 30 mg QDAY ANAYELI Administration Morphine Sulfate 2 mg 01/14/19 18:57 01/17/19 09:00 Morphine IV 2 mg Q4H PRN Administration Pain, Moderate (4-6) Ondansetron HCl 4 mg 01/14/19 18:57 01/14/19 22:22 Zofran IV 4 mg Q8H PRN Administration Nausea And Vomiting Pantoprazole Sodium 40 mg 01/14/19 20:00 01/18/19 10:44 Protonix PO 40 mg QDAY ANAYELI Administration Sodium Chloride 10 ml 01/14/19 22:00 01/18/19 10:00 Sodium Chloride Flush Syringe 10 Ml IV 10 ml BID ANAYELI Administration Sodium Chloride 10 ml 01/14/19 18:57 Sodium Chloride Flush Syringe 10 Ml IV PRN PRN LINE FLUSH Spironolactone 25 mg 01/15/19 10:00 01/18/19 10:40 Aldactone PO 25 mg QDAY ANAYELI Administration
[2019-01-18] MEDS: LANTUS SUB-Q SCH (12:17)
[2019-01-18] MEDS: COLACE FEEDTUBE SCH (13:10)
--- NOTE | 2019-01-18 13:51 | Progress Note ---
Assessment and Plan - Patient Problems (1) Acute ST elevation myocardial infarction (STEMI) of anterior wall Current Visit: Yes Status: Acute Plan to address problem: We will treat persistent pulmonary edema with aggressive diuresis, intravenous morphine and respiratory support as recommended by pulmonary service. We will continue intra-aortic balloon pump, heparin, Levophed and intravenous dobutamine. Subjective Date of service: 01/18/19 Principal diagnosis: MT Interval history: Patient is awake, comfortable, shortness of breath has improved. His systolic blood pressure is 95 on levophed, augmented diastolic pressure is 130. Objective Vital Signs Temp Pulse Pulse Pulse Resp BP Pulse Ox 01/18/19 13:00 98.6 F 127 H 23 161/83 97 01/18/19 12:46 122 H 29 H 152/78 97 01/18/19 12:30 123 H 27 H 141/84 100 01/18/19 12:15 129 H 19 141/79 01/18/19 12:01 122 H 24 141/79 98 01/18/19 12:00 98.6 F 126 H 120 H 120 H 24 141/84 96 01/18/19 11:45 123 H 27 H 147/86 94 01/18/19 11:31 126 H 31 H 152/88 97 01/18/19 11:15 121 H 24 152/80 97 01/18/19 11:00 99.0 F 118 H 27 H 157/82 96 01/18/19 10:45 126 H 27 H 151/98 94 01/18/19 10:40 127 H 106/90 01/18/19 10:30 111 H 25 H 169/79 97 01/18/19 10:24 96 01/18/19 10:15 108 H 19 163/84 97 01/18/19 10:00 110 H 111 H 20 156/84 97 01/18/19 09:45 119 H 19 154/82 97 01/18/19 09:31 119 H 24 154/82 94 01/18/19 09:15 121 H 28 H 153/69 96 01/18/19 09:00 98.2 F 125 H 26 H 163/67 95 01/18/19 08:45 123 H 30 H 156/102 100 01/18/19 08:31 119 H 17 156/102 98 01/18/19 08:15 118 H 22 154/88 98 01/18/19 08:01 122 H 26 H 162/90 99 01/18/19 08:00 98.2 F 122 H 23 162/90 100 01/18/19 07:45 117 H 25 H 170/69 100 01/18/19 07:31 117 H 27 H 157/87 99 01/18/19 07:15 121 H 28 H 158/85 99 01/18/19 07:01 109 H 20 162/83 98 01/18/19 07:00 98.4 F 117 H 27 H 154/82 99 01/18/19 06:45 105 H 20 162/79 99 01/18/19 06:41 98 01/18/19 06:30 109 H 21 157/83 99 01/18/19 06:15 116 H 20 157/93 100 01/18/19 06:01 116 H 21 164/85 97 01/18/19 06:00 98.0 F 121 H 21 157/93 99 01/18/19 05:45 118 H 24 157/89 98 01/18/19 05:31 119 H 23 159/93 96 01/18/19 05:15 112 H 22 156/91 98 01/18/19 05:10 98.0 F 107 H 21 159/96 98 01/18/19 05:01 110 H 27 H 159/96 97 01/18/19 04:45 112 H 22 153/84 98 01/18/19 04:31 112 H 22 152/75 98 01/18/19 04:15 114 H 21 152/86 98 01/18/19 04:05 98.0 F 21 99 01/18/19 04:03 98.0 F 107 H 22 139/64 96 01/18/19 04:00 111 H 29 H 151/82 97 01/18/19 03:45 112 H 24 151/82 97 01/18/19 03:31 108 H 25 H 155/73 97 01/18/19 03:17 98.5 F 105 H 21 159/67 96 01/18/19 03:15 109 H 22 159/67 98 01/18/19 03:01 105 H 21 152/78 96 01/18/19 02:45 108 H 22 150/61 97 01/18/19 02:31 112 H 21 144/73 98 01/18/19 02:15 119 H 23 150/76 100 01/18/19 02:00 98.5 F 110 H 19 148/75 98 01/18/19 01:45 111 H 21 144/76 99 01/18/19 01:31 120 H 21 151/84 98 01/18/19 01:15 125 H 30 H 151/88 98 01/18/19 01:01 118 H 28 H 149/102 99 01/18/19 01:00 98.5 F 119 H 21 145/80 98 01/18/19 00:45 117 H 21 145/80 98 01/18/19 00:30 114 H 18 147/74 99 01/18/19 00:15 119 H 26 H 141/74 100 01/18/19 00:11 98.5 F 120 H 22 143/81 99 01/18/19 00:01 124 H 31 H 143/81 100 01/18/19 00:00 98.5 F 21 99 01/17/19 23:48 113 H 22 143/71 100 01/17/19 23:45 112 H 22 138/72 100 01/17/19 23:36 115 H 27 H 143/71 99 01/17/19 23:31 110 H 23 143/71 98 01/17/19 23:15 111 H 25 H 158/101 97 01/17/19 23:05 98.8 F 114 H 19 100/84 100 01/17/19 23:01 121 H 25 H 174/105 97 01/17/19 23:00 98.5 F 112 H 21 138/72 99 01/17/19 22:45 98.8 F 120 H 25 H 147/85 100 01/17/19 22:31 123 H 28 H 149/95 99 01/17/19 22:15 98.8 F 123 H 21 149/95 96 01/17/19 22:05 99.8 F H 112 H 21 146/68 99 01/17/19 22:00 108 H 21 145/66 92 01/17/19 21:45 98.8 F 119 H 26 H 150/77 96 01/17/19 21:31 114 H 20 150/77 98 01/17/19 21:27 98.8 F 114 H 19 99/86 100 01/17/19 21:15 98.8 F 117 H 22 157/77 99 01/17/19 21:05 98.9 F 114 H 19 102/87 100 18/19 21:01 117 H 25 H 158/78 99 18/19 21:00 98.0 F 119 H 24 152/71 99 18/19 20:45 98.9 F 112 H 27 H 150/60 100 18/19 20:31 115 H 25 H 150/60 100 18/19 20:30 98.0 F 118 H 25 H 100/86 100 18/19 20:15 124 H 28 H 144/81 100 18/19 20:09 99 18/19 20:05 98.0 F 118 H 27 H 152/71 99 18/19 20:01 120 H 24 152/71 99 18/19 19:51 98 F 18/19 19:45 106 H 20 149/71 96 18/19 19:31 121 H 28 H 153/59 98 18/19 19:15 116 H 27 H 149/71 99 18/19 19:09 98.0 F 118 H 27 H 150/74 99 18/19 19:01 114 H 24 150/74 100 18/19 18:45 121 H 28 H 149/67 99 18/19 18:31 127 H 31 H 143/80 100 18/19 18:15 128 H 25 H 143/80 100 18/19 18:01 133 H 26 H 135/72 100 18/19 18:00 133 H 26 H 135/72 100 18/19 17:45 128 H 30 H 135/72 100 18/19 17:31 122 H 20 143/80 100 18/19 17:15 126 H 22 135/72 98 18/19 17:00 112 H 22 125/63 99 18/19 16:45 117 H 17 125/63 98 18/19 16:31 123 H 20 126/64 100 18/19 16:15 110 H 20 126/64 99 18/19 16:07 99 18/19 16:01 102 H 20 141/68 98 18/19 16:00 99.2 F 120 H 20 141/68 98 18/19 15:45 102 H 15 145/67 99 03/18/19 15:30 117 H 23 126/64 99 01/17/19 15:15 106 H 18 118/63 99 01/17/19 15:00 98 H 17 130/63 99 01/17/19 14:45 122 H 23 125/67 84 01/17/19 14:31 101 H 17 125/67 100 01/17/19 14:15 106 H 17 125/67 83 L 01/17/19 14:01 105 H 14 125/62 100 01/17/19 14:00 116 H 14 125/62 100 - Physical Examination General: No Apparent Distress HEENT: Positive: PERRL Neck: Positive: neck supple Cardiac: Positive: Reg Rate and Rhythm Lungs: Positive: Decreased Breath Sounds Neuro: Positive: Grossly Intact Abdomen: Positive: Soft Skin: Positive: Clear Extremities: Absent: edema - Labs and Meds CBC 01/18/19 Range/Units 04:10 WBC 13.2 H (4.5-11.0) K/mm3 RBC 3.12 L (3.65-5.03) M/mm3 Hgb 9.6 L (11.8-15.2) gm/dl Hct 28.6 L D (35.5-45.6) % Plt Count 228 (140-440) K/mm3 Lymph # 1.5 (1.2-5.4) K/mm3 [place] # 1.6 H (0.0-0.8) K/mm3 Eos # 0.1 (0.0-0.4) K/mm3 Baso # 0.0 (0.0-0.1) K/mm3 Comprehensive Metabolic Panel 01/18/19 Range/Units 04:10 Sodium 139 (137-145) mmol/L Potassium 3.3 L (3.6-5.0) mmol/L Chloride 99.9 (98-107) mmol/L Carbon Dioxide 24 (22-30) mmol/L BUN 14 (9-20) mg/dL Creatinine 0.9 (0.8-1.5) mg/dL Glucose 260 H (75-100) mg/dL Calcium 8.0 L (8.4-10.2) mg/dL
--- NOTE | 2019-01-18 16:25 | Progress Note ---
Assessment and Plan Imp: 1. Acute STEMI s/p PCI 2. CAD 3. Ischemic cardiomyopathy 4. Cardiogenic shock 5. Acute systolic CHF with pulm edema 6. Acute respiratory failure, hypoxia Rec: 1. Lasix 2. On heparin drip/Levophed per cardiology; IABP to stay in today 3. F/u CXR in AM 4. BIPAP prn 5. Doubt pneumonia but will complete ~ 5 days of empiric ABX 6. Monitor H/H 7. Replete K and Mag; repeat levels in AM 8. Increase Lantus 9. Keep in ICU; remains critically ill and prognosis is guarded Plan of care reviewed w/ patient, he understands/agrees CCT 31 minutes Subjective Date of service: 01/18/19 Principal diagnosis: DE Interval history: No events. Continues with SOB albeit better, back on NC now. Still with dry cough. No chest pain. IABP in place, Levophed, heparin drip. Active Medications Albuterol (Proventil) 2.5 mg IH Q4HRT PRN PRN Reason: Shortness Of Breath Aspirin (Baby Aspirin) 162 mg PO QDAY [facility] Last Admin: 01/18/19 10:44 Dose: 162 mg Documented by: Atorvastatin Calcium (Lipitor) 40 mg PO QHS [facility] Last Admin: 01/17/19 22:39 Dose: 40 mg Documented by: Azithromycin (Zithromax) 500 mg PO Q24H [facility] Last Admin: 01/17/19 22:38 Dose: 500 mg Documented by: Benzocaine/Menthol (Cepacol X Strength) 1 each MM Q2HR PRN PRN Reason: Sore Throat Last Admin: 01/18/19 13:29 Dose: 1 each Documented by: Clopidogrel Bisulfate (Plavix) 75 mg PO QDAY [facility] Last Admin: 01/18/19 10:44 Dose: 75 mg Documented by: Dextrose (D50w (25gm) Syringe) 50 ml IV PRN PRN PRN Reason: Hypoglycemia Docusate Sodium (Colace) 100 mg FEEDTUBE DAILY [facility] Last Admin: 01/18/19 13:10 Dose: 100 mg Documented by: Furosemide (Lasix) 60 mg IV 0600,1800 [facility] Last Admin: 01/18/19 05:29 Dose: 60 mg Documented by: Guaifenesin (Guaifenesin Dm Syrup) 10 ml PO Q4H PRN PRN Reason: Cough Last Admin: 01/16/19 17:40 Dose: 10 ml Documented by: Ceftriaxone Sodium (Rocephin/Ns 1 Gm/50 Ml) 1 gm in 50 mls @ 100 mls/hr IV Q24HR@2200 ANAYELI; Protocol Last Admin: 01/17/19 23:02 Dose: 100 mls/hr Documented by: Heparin Sodium (Porcine) 1,000 (unit/ Sodium Chloride) 501 mls @ 0 mls/hr IV DIRECT ANAYELI Last Admin: 01/17/19 21:20 Dose: 15 mls/hr Documented by: Dobutamine HCl/Dextrose (Dobutrex Drip 500mg/D5w 250ml) 500 mg in 250 mls @ 8.28 mls/hr IV TITR ANAYELI Last Admin: 01/17/19 12:18 Dose: 5 mcg/kg/min, 8.28 mls/hr Documented by: Heparin Sodium/Sodium Chloride (Heparin/ 0.45% Nacl-25,000 Unit/500 Ml) 25,000 unit in 500 mls @ 16 mls/hr IV TITR ANAYELI; Protocol Last Titration: 01/18/19 11:10 Dose: 500 units/hr, 10 mls/hr Documented by: Norepinephrine (Levophed Drip 4 Mg/Ns 250 Ml) 4 mg in 250 mls @ 7.5 mls/hr IV TITR ANAYELI; Protocol Last Titration: 01/18/19 14:19 Dose: 14 mcg/min, 52.5 mls/hr Documented by: Insulin Glargine (Lantus) 20 units SUB-Q DAILY [facility] Last Admin: 01/18/19 12:17 Dose: 20 units Documented by: Insulin Human Lispro (Humalog) 0 unit SUB-Q ACHS [facility]; Protocol Last Admin: 01/18/19 11:40 Dose: 8 unit Documented by: Isosorbide Mononitrate (Imdur) 30 mg PO QDAY [facility] Last Admin: 01/18/19 10:45 Dose: 30 mg Documented by: Morphine Sulfate (Morphine) 2 mg IV Q4H PRN PRN Reason: Pain, Moderate (4-6) Last Admin: 01/17/19 09:00 Dose: 2 mg Documented by: Ondansetron HCl (Zofran) 4 mg IV Q8H PRN PRN Reason: Nausea And Vomiting Last Admin: 01/14/19 22:22 Dose: 4 mg Documented by: Pantoprazole Sodium (Protonix) 40 mg PO QDAY [facility] Last Admin: 01/18/19 10:44 Dose: 40 mg Documented by: Sodium Chloride (Sodium Chloride Flush Syringe 10 Ml) 10 ml IV BID [facility] Last Admin: 01/18/19 10:00 Dose: 10 ml Documented by: Sodium Chloride (Sodium Chloride Flush Syringe 10 Ml) 10 ml IV PRN PRN PRN Reason: LINE FLUSH Spironolactone (Aldactone) 25 mg PO QDAY [facility] Last Admin: 01/18/19 10:40 Dose: 25 mg Documented by: Objective Vital Signs - 12hr 01/18/19 01/18/19 01/18/19 04:31 04:45 05:01 Temperature Pulse Rate 112 H 112 H 110 H Pulse Rate [ Bilateral Femoral] Pulse Rate [ From Monitor] Respiratory 22 22 27 H Rate Blood Pressure 152/75 153/84 159/96 O2 Sat by Pulse 98 98 97 Oximetry 01/18/19 01/18/19 01/18/19 05:10 05:15 05:31 Temperature 98.0 F Pulse Rate 107 H 112 H 119 H Pulse Rate [ Bilateral Femoral] Pulse Rate [ From Monitor] Respiratory 21 22 23 Rate Blood Pressure 159/96 156/91 159/93 O2 Sat by Pulse 98 98 96 Oximetry 01/18/19 01/18/19 01/18/19 05:45 06:00 06:01 Temperature 98.0 F Pulse Rate 118 H 121 H 116 H Pulse Rate [ Bilateral Femoral] Pulse Rate [ From Monitor] Respiratory 24 21 21 Rate Blood Pressure 157/89 157/93 164/85 O2 Sat by Pulse 98 99 97 Oximetry 01/18/19 01/18/19 01/18/19 06:15 06:30 06:41 Temperature Pulse Rate 116 H 109 H Pulse Rate [ Bilateral Femoral] Pulse Rate [ From Monitor] Respiratory 20 21 Rate Blood Pressure 157/93 157/83 O2 Sat by Pulse 100 99 98 Oximetry 01/18/19 01/18/19 01/18/19 06:45 07:00 07:01 Temperature 98.4 F Pulse Rate 105 H 117 H 109 H Pulse Rate [ Bilateral Femoral] Pulse Rate [ From Monitor] Respiratory 20 27 H 20 Rate Blood Pressure 162/79 154/82 162/83 O2 Sat by Pulse 99 99 98 Oximetry 01/18/19 01/18/19 01/18/19 07:15 07:31 07:45 Temperature Pulse Rate 121 H 117 H 117 H Pulse Rate [ Bilateral Femoral] Pulse Rate [ From Monitor] Respiratory 28 H 27 H 25 H Rate Blood Pressure 158/85 157/87 170/69 O2 Sat by Pulse 99 99 100 Oximetry 01/18/19 01/18/19 01/18/19 08:00 08:01 08:15 Temperature 98.2 F Pulse Rate 122 H 122 H 118 H Pulse Rate [ Bilateral Femoral] Pulse Rate [ From Monitor] Respiratory 23 26 H 22 Rate Blood Pressure 162/90 162/90 154/88 O2 Sat by Pulse 100 99 98 Oximetry 01/18/19 01/18/19 01/18/19 08:31 08:45 09:00 Temperature 98.2 F Pulse Rate 119 H 123 H 125 H Pulse Rate [ Bilateral Femoral] Pulse Rate [ From Monitor] Respiratory 17 30 H 26 H Rate Blood Pressure 156/102 156/102 163/67 O2 Sat by Pulse 98 100 95 Oximetry 01/18/19 01/18/19 01/18/19 09:15 09:31 09:45 Temperature Pulse Rate 121 H 119 H 119 H Pulse Rate [ Bilateral Femoral] Pulse Rate [ From Monitor] Respiratory 28 H 24 19 Rate Blood Pressure 153/69 154/82 154/82 O2 Sat by Pulse 96 94 97 Oximetry 01/18/19 01/18/19 01/18/19 10:00 10:15 10:24 Temperature Pulse Rate 110 H 108 H Pulse Rate [ Bilateral Femoral] Pulse Rate [ 111 H From Monitor] Respiratory 20 19 Rate Blood Pressure 156/84 163/84 O2 Sat by Pulse 97 97 96 Oximetry 01/18/19 01/18/19 01/18/19 10:30 10:40 10:45 Temperature Pulse Rate 111 H 127 H 126 H Pulse Rate [ Bilateral Femoral] Pulse Rate [ From Monitor] Respiratory 25 H 27 H Rate Blood Pressure 169/79 106/90 151/98 O2 Sat by Pulse 97 94 Oximetry 01/18/19 01/18/19 01/18/19 11:00 11:15 11:31 Temperature 99.0 F Pulse Rate 118 H 121 H 126 H Pulse Rate [ Bilateral Femoral] Pulse Rate [ From Monitor] Respiratory 27 H 24 31 H Rate Blood Pressure 157/82 152/80 152/88 O2 Sat by Pulse 96 97 97 Oximetry 01/18/19 01/18/19 01/18/19 11:45 12:00 12:01 Temperature 98.6 F Pulse Rate 123 H 126 H 122 H Pulse Rate [ 120 H Bilateral Femoral] Pulse Rate [ 120 H From Monitor] Respiratory 27 H 24 24 Rate Blood Pressure 147/86 141/84 141/79 O2 Sat by Pulse 94 96 98 Oximetry 01/18/19 01/18/19 01/18/19 12:15 12:30 12:46 Temperature Pulse Rate 129 H 123 H 122 H Pulse Rate [ Bilateral Femoral] Pulse Rate [ From Monitor] Respiratory 19 27 H 29 H Rate Blood Pressure 141/79 141/84 152/78 O2 Sat by Pulse 100 97 Oximetry 01/18/19 01/18/19 01/18/19 13:00 13:15 13:30 Temperature 98.6 F Pulse Rate 127 H 117 H 121 H Pulse Rate [ Bilateral Femoral] Pulse Rate [ From Monitor] Respiratory 23 24 28 H Rate Blood Pressure 161/83 153/75 151/81 O2 Sat by Pulse 97 97 100 Oximetry 01/18/19 01/18/19 01/18/19 13:46 14:00 14:16 Temperature 99.0 F Pulse Rate 128 H 122 H 120 H Pulse Rate [ Bilateral Femoral] Pulse Rate [ 126 H From Monitor] Respiratory 22 23 27 H Rate Blood Pressure 153/68 149/84 149/95 O2 Sat by Pulse 98 96 97 Oximetry 01/18/19 01/18/19 01/18/19 14:30 14:46 15:00 Temperature Pulse Rate 113 H 117 H 111 H Pulse Rate [ Bilateral Femoral] Pulse Rate [ From Monitor] Respiratory 24 25 H 21 Rate Blood Pressure 147/77 128/72 153/85 O2 Sat by Pulse 94 94 96 Oximetry 01/18/19 01/18/19 01/18/19 15:15 15:30 15:46 Temperature Pulse Rate 113 H 105 H 106 H Pulse Rate [ Bilateral Femoral] Pulse Rate [ From Monitor] Respiratory 22 20 21 Rate Blood Pressure 148/87 149/101 148/95 O2 Sat by Pulse 97 98 95 Oximetry 01/18/19 16:00 Temperature 98.8 F Pulse Rate 118 H Pulse Rate [ Bilateral Femoral] Pulse Rate [ 116 H From Monitor] Respiratory 21 Rate Blood Pressure 152/77 O2 Sat by Pulse 98 Oximetry Constitutional: other (critically ill on pressors) Eyes: non-icteric ENT: oropharynx moist Neck: supple Effort: normal Ascultation: Bilateral: rales Cardiovascular: other (tachy, RR; + gallop (? summation); loud systolic murmur throughout) Gastrointestinal: normoactive bowel sounds, soft, non-tender, non-distended Integumentary: normal Extremities: no cyanosis, no edema, pink and warm Neurologic: normal mental status, non-focal exam, pupils equal and round, CN II- XII normal Psychiatric: mood appropriate, affect normal CBC and BMP: 01/18/19 04:10 01/18/19 04:10 ABG, PT/INR, D-dimer: PT/INR, D-dimer PT 23.7 Sec. (12.2-14.9) H 01/14/19 18:50 INR 1.97 (0.87-1.13) H 01/14/19 18:50 Abnormal lab findings: Abnormal Labs 01/14/19 01/14/19 01/14/19 18:45 18:50 18:50 WBC RBC Hgb Hct MCV RDW Lymph % (Auto) [place] % (Auto) [place] # Seg Neutrophils % Seg Neutrophils # PT 23.7 H INR 1.97 H APTT < 20.0 L Activated Clotting Time 252 H Heparin Anti-Xa Level Sodium 123 L Potassium 5.8 H Chloride 87.7 L Carbon Dioxide 13 L BUN 27 H Creatinine 1.7 H Glucose 474 H POC Glucose Calcium 8.2 L Magnesium AST 70 H ALT 73 H Alkaline Phosphatase Total Creatine Kinase CK-MB (CK-2) Troponin T 1.780 H* NT-Pro-B Natriuret Pep 8727 H Total Protein 6.0 L Albumin 2.8 L HDL Cholesterol Free T4 Ur Specific [place] Urine WBC (Auto) Crossmatch 01/14/19 01/14/19 01/14/19 18:50 18:50 18:50 WBC 13.9 H RBC 3.26 L Hgb 10.5 L Hct 31.9 L MCV 98 H RDW 17.0 H Lymph % (Auto) 8.3 L [place] % (Auto) [place] # Seg Neutrophils % 86.6 H Seg Neutrophils # 12.1 H PT INR APTT Activated Clotting Time Heparin Anti-Xa Level Sodium Potassium Chloride Carbon Dioxide BUN Creatinine Glucose POC Glucose Calcium Magnesium AST ALT Alkaline Phosphatase Total Creatine Kinase CK-MB (CK-2) Troponin T 1.760 H* NT-Pro-B Natriuret Pep Total Protein Albumin HDL Cholesterol 31 L Free T4 1.67 H Ur Specific [place] Urine WBC (Auto) Crossmatch 01/14/19 01/14/19 01/14/19 21:12 21:42 23:05 WBC RBC Hgb Hct MCV RDW Lymph % (Auto) [place] % (Auto) [place] # Seg Neutrophils % Seg Neutrophils # PT INR APTT Activated Clotting Time Heparin Anti-Xa Level Sodium 130 L D Potassium 5.4 H Chloride 90.9 L Carbon Dioxide 17 L BUN 28 H Creatinine Glucose 504 H* POC Glucose 437 H 372 H Calcium 8.2 L Magnesium AST ALT Alkaline Phosphatase Total Creatine Kinase CK-MB (CK-2) Troponin T NT-Pro-B Natriuret Pep Total Protein Albumin HDL Cholesterol Free T4 Ur Specific [place] Urine WBC (Auto) Crossmatch 01/14/19 01/15/19 01/15/19 23:40 00:07 01:12 WBC RBC Hgb Hct MCV RDW Lymph % (Auto) [place] % (Auto) [place] # Seg Neutrophils % Seg Neutrophils # PT INR APTT Activated Clotting Time Heparin Anti-Xa Level Sodium Potassium Chloride Carbon Dioxide BUN Creatinine Glucose POC Glucose 389 H 384 H 311 H Calcium Magnesium AST ALT Alkaline Phosphatase Total Creatine Kinase CK-MB (CK-2) Troponin T NT-Pro-B Natriuret Pep Total Protein Albumin HDL Cholesterol Free T4 Ur Specific [place] Urine WBC (Auto) Crossmatch 01/15/19 01/15/19 01/15/19 01:20 01:20 02:29 WBC RBC Hgb Hct MCV RDW Lymph % (Auto) [place] % (Auto) [place] # Seg Neutrophils % Seg Neutrophils # PT INR APTT Activated Clotting Time Heparin Anti-Xa Level 0.99 H Sodium 134 L Potassium Chloride Carbon Dioxide 20 L BUN 29 H Creatinine Glucose 299 H POC Glucose 289 H Calcium 7.6 L Magnesium AST ALT Alkaline Phosphatase Total Creatine Kinase CK-MB (CK-2) Troponin T NT-Pro-B Natriuret Pep Total Protein Albumin HDL Cholesterol Free T4 Ur Specific [place] Urine WBC (Auto) Crossmatch 01/15/19 01/15/19 01/15/19 03:10 03:23 03:23 WBC 13.6 H RBC 3.01 L Hgb 9.5 L Hct 29.0 L MCV 96 H RDW 16.8 H Lymph % (Auto) 9.3 L [place] % (Auto) 10.1 H [place] # 1.4 H Seg Neutrophils % 80.3 H Seg Neutrophils # 10.9 H PT INR APTT Activated Clotting Time Heparin Anti-Xa Level Sodium 133 L Potassium Chloride Carbon Dioxide 21 L BUN 30 H Creatinine Glucose 190 H POC Glucose 227 H Calcium 7.4 L Magnesium AST ALT Alkaline Phosphatase Total Creatine Kinase CK-MB (CK-2) Troponin T NT-Pro-B Natriuret Pep Total Protein Albumin HDL Cholesterol Free T4 Ur Specific [place] Urine WBC (Auto) Crossmatch 01/15/19 01/15/19 01/15/19 03:23 04:49 05:11 WBC RBC Hgb Hct MCV RDW Lymph % (Auto) [place] % (Auto) [place] # Seg Neutrophils % Seg Neutrophils # PT INR APTT Activated Clotting Time Heparin Anti-Xa Level 0.85 H Sodium Potassium Chloride Carbon Dioxide BUN Creatinine Glucose POC Glucose 171 H Calcium Magnesium AST ALT Alkaline Phosphatase Total Creatine Kinase CK-MB (CK-2) Troponin T NT-Pro-B Natriuret Pep Total Protein Albumin HDL Cholesterol Free T4 Ur Specific [place] 1.046 H Urine WBC (Auto) 19.0 H Crossmatch 01/15/19 01/15/19 01/15/19 05:50 06:19 07:38 WBC RBC Hgb Hct MCV RDW Lymph % (Auto) [place] % (Auto) [place] # Seg Neutrophils % Seg Neutrophils # PT INR APTT Activated Clotting Time Heparin Anti-Xa Level Sodium 134 L Potassium Chloride 97.6 L Carbon Dioxide 20 L BUN 30 H Creatinine Glucose POC Glucose 118 H 120 H Calcium 7.9 L Magnesium AST ALT Alkaline Phosphatase Total Creatine Kinase CK-MB (CK-2) Troponin T NT-Pro-B Natriuret Pep Total Protein Albumin HDL Cholesterol Free T4 Ur Specific [place] Urine WBC (Auto) Crossmatch 01/15/19 01/15/19 01/15/19 08:08 11:24 14:45 WBC RBC Hgb Hct MCV RDW Lymph % (Auto) [place] % (Auto) [place] # Seg Neutrophils % Seg Neutrophils # PT INR APTT Activated Clotting Time Heparin Anti-Xa Level Sodium 132 L Potassium Chloride Carbon Dioxide BUN 31 H Creatinine Glucose 200 H POC Glucose 110 H 173 H Calcium 8.0 L Magnesium AST ALT Alkaline Phosphatase Total Creatine Kinase 294 H CK-MB (CK-2) 9.3 H Troponin T 3.300 H* D NT-Pro-B Natriuret Pep Total Protein Albumin HDL Cholesterol Free T4 Ur Specific [place] Urine WBC (Auto) Crossmatch 01/15/19 01/15/19 01/15/19 16:19 20:39 21:05 WBC RBC Hgb Hct MCV RDW Lymph % (Auto) [place] % (Auto) [place] # Seg Neutrophils % Seg Neutrophils # PT INR APTT Activated Clotting Time Heparin Anti-Xa Level 0.71 H Sodium Potassium Chloride Carbon Dioxide BUN Creatinine Glucose POC Glucose 170 H 159 H Calcium Magnesium AST ALT Alkaline Phosphatase Total Creatine Kinase CK-MB (CK-2) Troponin T NT-Pro-B Natriuret Pep Total Protein Albumin HDL Cholesterol Free T4 Ur Specific [place] Urine WBC (Auto) Crossmatch 01/16/19 01/16/19 01/16/19 05:00 05:00 11:35 WBC 13.5 H RBC 2.58 L Hgb 8.4 L Hct 24.5 L MCV 95 H RDW 16.4 H Lymph % (Auto) 11.1 L [place] % (Auto) 8.4 H [place] # 1.1 H Seg Neutrophils % 80.1 H Seg Neutrophils # 10.8 H PT INR APTT Activated Clotting Time Heparin Anti-Xa Level Sodium Potassium Chloride Carbon Dioxide BUN 23 H Creatinine Glucose 68 L POC Glucose 237 H Calcium 7.8 L Magnesium AST ALT Alkaline Phosphatase Total Creatine Kinase CK-MB (CK-2) Troponin T NT-Pro-B Natriuret Pep Total Protein Albumin HDL Cholesterol Free T4 Ur Specific [place] Urine WBC (Auto) Crossmatch 01/16/19 01/17/19 01/17/19 16:37 03:34 03:34 WBC 11.5 H RBC 2.33 L Hgb 7.3 L Hct 22.0 L MCV 95 H RDW 17.0 H Lymph % (Auto) 11.2 L [place] % (Auto) 9.8 H [place] # 1.1 H Seg Neutrophils % 78.1 H Seg Neutrophils # 9.0 H PT INR APTT Activated Clotting Time Heparin Anti-Xa Level Sodium Potassium Chloride Carbon Dioxide BUN Creatinine Glucose POC Glucose 224 H Calcium Magnesium AST ALT 77 H Alkaline Phosphatase 159 H Total Creatine Kinase CK-MB (CK-2) Troponin T NT-Pro-B Natriuret Pep Total Protein 5.1 L Albumin 2.4 L HDL Cholesterol Free T4 Ur Specific [place] Urine WBC (Auto) Crossmatch 01/17/19 01/17/19 01/17/19 08:12 11:29 14:42 WBC RBC Hgb Hct MCV RDW Lymph % (Auto) [place] % (Auto) [place] # Seg Neutrophils % Seg Neutrophils # PT INR APTT Activated Clotting Time Heparin Anti-Xa Level 0.19 L Sodium Potassium Chloride Carbon Dioxide BUN Creatinine Glucose POC Glucose 136 H 228 H Calcium Magnesium AST ALT Alkaline Phosphatase Total Creatine Kinase CK-MB (CK-2) Troponin T NT-Pro-B Natriuret Pep Total Protein Albumin HDL Cholesterol Free T4 Ur Specific [place] Urine WBC (Auto) Crossmatch 01/17/19 01/17/19 01/17/19 15:37 17:30 21:45 WBC RBC Hgb Hct MCV RDW Lymph % (Auto) [place] % (Auto) [place] # Seg Neutrophils % Seg Neutrophils # PT INR APTT Activated Clotting Time Heparin Anti-Xa Level Sodium Potassium Chloride Carbon Dioxide BUN Creatinine Glucose POC Glucose 293 H 281 H Calcium Magnesium AST ALT Alkaline Phosphatase Total Creatine Kinase CK-MB (CK-2) Troponin T NT-Pro-B Natriuret Pep Total Protein Albumin HDL Cholesterol Free T4 Ur Specific [place] Urine WBC (Auto) Crossmatch See Detail 01/17/19 01/18/19 01/18/19 23:34 04:10 04:10 WBC 13.2 H RBC 3.12 L Hgb 9.6 L Hct 28.6 L D MCV RDW 17.6 H Lymph % (Auto) 11.4 L [place] % (Auto) 11.9 H [place] # 1.6 H Seg Neutrophils % 76.0 H Seg Neutrophils # 10.0 H PT INR APTT Activated Clotting Time Heparin Anti-Xa Level > 2.00 H Sodium Potassium 3.3 L Chloride Carbon Dioxide BUN Creatinine Glucose 260 H POC Glucose Calcium 8.0 L Magnesium 1.60 L AST ALT Alkaline Phosphatase Total Creatine Kinase CK-MB (CK-2) Troponin T NT-Pro-B Natriuret Pep Total Protein Albumin HDL Cholesterol Free T4 Ur Specific [place] Urine WBC (Auto) Crossmatch 01/18/19 01/18/19 01/18/19 08:43 09:15 11:49 WBC RBC Hgb Hct MCV RDW Lymph % (Auto) [place] % (Auto) [place] # Seg Neutrophils % Seg Neutrophils # PT INR APTT Activated Clotting Time Heparin Anti-Xa Level < 0.10 L Sodium Potassium Chloride Carbon Dioxide BUN Creatinine Glucose POC Glucose 317 H 307 H Calcium Magnesium AST ALT Alkaline Phosphatase Total Creatine Kinase CK-MB (CK-2) Troponin T NT-Pro-B Natriuret Pep Total Protein Albumin HDL Cholesterol Free T4 Ur Specific [place] Urine WBC (Auto) Crossmatch Chest x-ray: report reviewed, image reviewed (persistent edema)
[2019-01-18] MEDS: DOBUTREX DRIP 500MG/D5W 250ML 500 MG/250 ML BAG IV SCH (17:22)
[2019-01-18] MEDS: HEPARIN/ 0.45% NACL-25,000 UNIT/500 ML 25,000 UNIT/500 ML BAG IV SCH ×2 (17:27→17:30)
[2019-01-18] MEDS ORDERED: ADRENALIN ONE (20:40)
[2019-01-18] MEDS ORDERED: MAGNESIUM SULFATE ONE (20:40)
[2019-01-18] MEDS ORDERED: SODIUM BICARBONATE IV ONE (20:40)
[2019-01-18] MEDS ORDERED: QUELICIN ONE (20:48)
[2019-01-18] MEDS ORDERED: AMIDATE IV ONE (20:48)
[2019-01-18] MEDS ORDERED: VASELINE LIP THERAPY TP PRN (21:26)
[2019-01-18] MEDS ORDERED: ARTIFICIAL TEARS OPHTH OINT OU PRN (21:26)
[2019-01-18] MEDS: DIPRIVAN 10 MG/ML 1,000 MG/100 ML BOTTLE IV SCH (21:50)
[2019-01-18] MEDS ORDERED: NACL 0.9% 1000 ML 1,000 ML ONE (22:02)
[2019-01-18] MEDS: ZITHROMAX PO SCH (22:12)
[2019-01-18] MEDS: ROCEPHIN/NS 1 GM/50 ML 1 GM/50 ML BAG IV SCH (22:12)
--- NOTE | 2019-01-18 22:37 | XRay Report ---
PROCEDURE: XR CHEST 1V AP TECHNIQUE: Single view chest HISTORY: ETT placement COMPARISONS: Chest x-ray January 18, 2019 FINDINGS: Endotracheal tubes have 4.7 cm above the hang. NG tube with tip below diaphragm. Linear opacity bel ow the aortic arch which may represent a balloon pump marker. No pneumothorax. No sizable effusion. I nterstitial prominence and patchy perihilar airspace disease stable. IMPRESSION: Endotracheal tube and NG tube placed with adequate position Lungs stable. This document is electronically signed by Girish Mendoza MD., January 18 2019 10:35:29 PM ET
--- NOTE | 2019-01-18 23:32 | XRay Report ---
PROCEDURE: XR ABDOMEN 1V AP TECHNIQUE: Abdominal radiograph, single view. HISTORY: ogt placement COMPARISONS: None . FINDINGS: Bowel gas pattern: Nonobstructive . Masses or calcifications: None . Bony structures: No significant abnormality . Other: NG tube is in the stomach. . IMPRESSION: No acute abnormality. NG tube is in the stomach. This document is electronically signed by Nik Waldron MD., January 18 2019 11:30:09 PM ET
--- NOTE | 2019-01-19 00:37 | Event Note ---
Date: 01/18/19 Called to bedside for code blue. Dr Gould also at bedside to run the code. ROSC achieved, however pt intubated for protection of airway. Etomidate 20 mg, succinylcholine 120 mg were given. Pt intubated w/ 7.5 ET tube on first attempt. Positive color change on CO2 detector, positive breath sounds bilaterally. Appropriate tube position on CXR.
[2019-01-19] MEDS: LEVOPHED DRIP 4 MG/NS 250 ML 4 MG/250 ML BAG IV SCH ×5 (01:40→16:56)
[2019-01-19 05:24] LABS: Basophils % (Auto) 0.5 % (0.0-1.8); Eosinophils # (Auto) 0.2 K/mm3 (0.0-0.4); Eosinophils % (Auto) 1.5 % (0.0-4.3); Hematocrit 26.3 % (35.5-45.6); Hemoglobin 9.2 gm/dl (11.8-15.2); Lymphocytes # (Auto) 1.5 K/mm3 (1.2-5.4); Lymphocytes % (Auto) 13.4 % (13.4-35.0); Mean Corpuscular HGB Conc 35 % (32-34); Mean Corpuscular Volume 90 fl (84-94); Monocytes # (Auto) 1.6 K/mm3 (0.0-0.8); Monocytes % (Auto) 14.9 % (0.0-7.3); Platelet Count 211 K/mm3 (140-440); Red Blood Count 2.92 M/mm3 (3.65-5.03); Red Cell Distribution Width 17.8 % (13.2-15.2)
[2019-01-19 05:47] LABS: Calcium 7.4 mg/dL (8.4-10.2); Hemolysis Index 1
[2019-01-19 06:01] LABS: BUN/Creatinine Ratio 9; Blood Urea Nitrogen 6 mg/dL (9-20)
[2019-01-19] MEDS: LASIX IV SCH (06:13)
[2019-01-19] MEDS: K-DUR PO ONE ×2 (06:41→08:19)
[2019-01-19] MEDS ORDERED: KCL 10MEQ/100ML 10 MEQ/100 ML BAG IV ONE ×3 (07:42→11:40)
--- NOTE | 2019-01-19 08:27 | XRay Report ---
PORTABLE CHEST INDICATION: Follow up respiratory failure. COMPARISON: Yesterday. FINDINGS: Portable, frontal chest radiograph, 7:46 AM, 01/19/2019 demonstrates interval esophagogastric tube removal. Stable ET tube tip approximately 4 cm above the hang, aortic knob calcifications and normal cardiomediastinal silhouette. Slight diffuse bilateral pulmonary haziness and prominent markings presumed congestive. No significant pleural effusions however. A 0.7 cm linear density projecting below the aortic knob again not excluded for IABP. Intact bones. EKG leads. CONCLUSION: Mild interstitial edema radiographically and supporting devices noted with interval esophagogastric tube removal, as detailed above. Please correlate. Thank you for the opportunity to participate in this patient's care.
[2019-01-19] MEDS: HumaLOG SUB-Q SCH (08:41)
[2019-01-19] MEDS: KCL 20MEQ/100ML 20 MEQ/100 ML BAG IV SCH ×5 (08:55→12:00)
[2019-01-19] MEDS: PLAVIX PO SCH ×2 (10:00→17:29)
[2019-01-19] MEDS: COLACE FEEDTUBE SCH (10:00)
[2019-01-19] MEDS: ALDACTONE PO SCH (10:00)
[2019-01-19] MEDS: PREVACID SOLUTAB FEEDTUBE SCH (10:00)
[2019-01-19] MEDS: BABY ASPIRIN PO SCH ×2 (10:00→17:29)
[2019-01-19] MEDS: CORDARONE 900 MG in D5W 482 ML IV SCH (10:24)
[2019-01-19] MEDS: DIPRIVAN 10 MG/ML 1,000 MG/100 ML BOTTLE IV SCH (11:14)
[2019-01-19] MEDS: LANTUS SUB-Q SCH (11:21)
[2019-01-19] MEDS: SODIUM CHLORIDE FLUSH SYRINGE 10 ML IV SCH ×2 (11:21→21:49)
--- NOTE | 2019-01-19 11:39 | Progress Note ---
Assessment and Plan Acute STEMI s/p PCI to LAD with REGINA - infarct related artery Residual 80% RCA stenosis will be staged for PCI in the near future Ischemic cardiomyopathy, LVEF 15-20% Cardiogenic shock on IV levophed and IV dobutamine Ventricular fibrillation in the setting of profound hypokalemia Respiratory failure with evidence of pulmonary edema on CXR Patient was re-inbtubated this morning Anemia s/p PRBC transfusion Recommendations: There is a discrepancy between cuff pressure and IABP arterial line pressure. I have asked the nurse to flush and re-level the arterial line as well as check BP in opposite arm. Aggressively replace potassium and continue IV amiodarone Discontinue IV lasix bolusing and initiate IV lasix drip once K > 4 Discussed with his brother over the phone Subjective Date of service: 01/19/19 Principal diagnosis: MT Interval history: Patient had 2 episodes of ventricular fibrillation yesterday night and this morning. Potassium noted to be at 2.6. Patient required DCCV followed by initiation of IV amiodarone Objective Vital Signs Temp Pulse Pulse Pulse Resp BP Pulse Ox 01/19/19 09:00 99.0 F 103 H 16 163/79 100 01/19/19 08:30 105 H 16 169/85 100 01/19/19 08:16 96 H 16 169/72 99 01/19/19 08:00 99.0 F 96 H 16 164/84 100 01/19/19 07:57 96 H 174/75 100 01/19/19 07:46 102 H 14 164/84 100 01/19/19 07:30 102 H 16 147/69 99 01/19/19 07:16 100 H 16 147/69 99 01/19/19 07:00 115 H 16 147/69 99 01/19/19 06:46 98 H 16 163/65 100 01/19/19 06:30 99 H 16 174/79 100 01/19/19 06:16 101 H 16 172/75 100 01/19/19 06:00 101 H 123 H 16 172/75 100 01/19/19 05:46 99 H 16 174/84 100 01/19/19 05:30 99 H 16 174/84 100 01/19/19 05:20 95 H 19 172/75 100 01/19/19 05:15 113 H 16 158/92 100 01/19/19 05:00 100 H 16 132/73 100 01/19/19 04:46 102 H 16 165/64 99 01/19/19 04:30 100 H 16 170/88 100 01/19/19 04:16 117 H 17 170/96 100 01/19/19 04:00 98.9 F 100 H 123 H 16 170/96 100 01/19/19 03:46 99 H 16 168/102 99 01/19/19 03:30 111 H 15 163/95 100 01/19/19 03:16 100 H 16 169/100 100 01/19/19 03:00 100 H 17 162/93 100 01/19/19 02:46 103 H 16 147/69 100 01/19/19 02:30 106 H 16 161/95 100 01/19/19 02:15 124 H 16 155/89 100 01/19/19 02:00 110 H 123 H 16 152/78 100 01/19/19 01:46 107 H 16 142/82 100 01/19/19 01:30 122 H 20 157/34 100 01/19/19 01:16 114 H 17 157/34 100 01/19/19 01:00 101 H 16 157/34 100 01/19/19 00:46 110 H 16 163/78 100 01/19/19 00:30 113 H 16 163/78 100 01/19/19 00:16 123 H 15 166/85 100 01/19/19 00:00 98.8 F 116 H 123 H 15 166/85 100 01/18/19 23:46 115 H 15 172/91 100 01/18/19 23:30 125 H 14 172/91 100 01/18/19 23:15 121 H 15 177/98 100 01/18/19 23:00 122 H 15 170/92 100 01/18/19 22:46 123 H 18 157/87 100 01/18/19 22:30 125 H 13 173/80 100 01/18/19 22:16 118 H 16 173/80 100 01/18/19 22:00 99.1 F 125 H 123 H 24 163/85 99 01/18/19 21:53 112 H 17 157/34 100 01/18/19 21:46 132 H 24 163/85 99 01/18/19 21:30 133 H 25 H 175/101 99 01/18/19 21:16 139 H 26 H 175/109 97 01/18/19 21:00 147 H 16 149/84 98 01/18/19 20:46 198 H 29 H 146/91 100 01/18/19 20:30 116 H 25 H 147/69 95 01/18/19 20:16 119 H 18 155/65 96 01/18/19 20:00 99 F 123 H 116 H 24 151/79 94 01/18/19 19:59 100 01/18/19 19:46 120 H 17 151/79 96 01/18/19 19:30 124 H 16 158/85 94 01/18/19 19:15 123 H 29 H 149/80 97 01/18/19 19:00 121 H 23 152/79 96 01/18/19 18:46 126 H 26 H 146/74 97 01/18/19 18:30 117 H 24 146/74 100 01/18/19 18:15 118 H 26 H 152/85 98 01/18/19 18:00 120 H 116 H 25 H 159/91 97 01/18/19 17:45 119 H 19 156/84 95 01/18/19 17:30 112 H 27 H 155/87 95 01/18/19 17:15 106 H 14 156/85 95 01/18/19 17:00 98.8 F 116 H 24 154/72 96 01/18/19 16:46 120 H 14 147/82 94 01/18/19 16:30 116 H 19 152/90 96 01/18/19 16:15 115 H 22 151/80 96 01/18/19 16:00 98.8 F 118 H 116 H 21 152/77 98 01/18/19 15:46 106 H 21 148/95 95 01/18/19 15:30 105 H 20 149/101 98 01/18/19 15:15 113 H 22 148/87 97 01/18/19 15:00 111 H 21 153/85 96 01/18/19 14:46 117 H 25 H 128/72 94 01/18/19 14:30 113 H 24 147/77 94 01/18/19 14:16 120 H 27 H 149/95 97 01/18/19 14:00 98.8 F 122 H 126 H 23 149/84 96 01/18/19 13:46 128 H 22 153/68 98 01/18/19 13:30 121 H 28 H 151/81 100 01/18/19 13:15 117 H 24 153/75 97 01/18/19 13:00 98.6 F 127 H 23 161/83 97 01/18/19 12:46 122 H 29 H 152/78 97 01/18/19 12:30 123 H 27 H 141/84 100 01/18/19 12:15 129 H 19 141/79 01/18/19 12:01 122 H 24 141/79 98 01/18/19 12:00 98.6 F 126 H 120 H 120 H 24 141/84 96 01/18/19 11:45 123 H 27 H 147/86 94 - Physical Examination General: No Apparent Distress HEENT: Positive: PERRL Neck: Positive: neck supple Cardiac: Positive: Tachycardia Lungs: Positive: Ventilated Respirations Neuro: Positive: Grossly Intact Abdomen: Positive: Soft Skin: Positive: Clear Extremities: Absent: edema - Labs and Meds CBC 01/19/19 Range/Units 05:05 WBC 10.9 (4.5-11.0) K/mm3 RBC 2.92 L (3.65-5.03) M/mm3 Hgb 9.2 L (11.8-15.2) gm/dl Hct 26.3 L (35.5-45.6) % Plt Count 211 (140-440) K/mm3 Lymph # 1.5 (1.2-5.4) K/mm3 [place] # 1.6 H (0.0-0.8) K/mm3 Eos # 0.2 (0.0-0.4) K/mm3 Baso # 0.0 (0.0-0.1) K/mm3 Comprehensive Metabolic Panel 01/19/19 Range/Units 05:05 Sodium 137 (137-145) mmol/L Potassium 2.6 L* D (3.6-5.0) mmol/L Chloride 95.1 L (98-107) mmol/L Carbon Dioxide 28 (22-30) mmol/L BUN 6 L (9-20) mg/dL Creatinine 0.8 (0.8-1.5) mg/dL Glucose 239 H (75-100) mg/dL Calcium 7.4 L (8.4-10.2) mg/dL
[2019-01-19] MEDS ORDERED: HumaLOG SUB-Q SCH (12:00)
[2019-01-19] MEDS ORDERED: D50W (25GM) Syringe IV PRN (12:03)
[2019-01-19] MEDS: fentaNYL DRIP Premix 2,000 MCG/100 ML BAG IV SCH ×2 (12:14→23:55)
--- NOTE | 2019-01-19 12:30 | Progress Note ---
Assessment and Plan Assessment and plan: V. fib arrest. Continue IV amiodarone. Patient had 2 episodes of ventricular fibrillation yesterday night and this morning. Hypokalemia. Potassium is being repleted aggressively. Hold IV Lasix until potassium > 4. Acute hypoxemic respiratory failure. Patient intubated on the evening of 01/18/19. Etiology secondary to pulmonary edema/systolic heart failure. Continue mechanical ventilation per pulmonary. Patient currently on Diprivan drip The high probability of a clinically significant, sudden or life threatening deterioration of the [] system(s) required my full and direct attention, in tervention and personal management. The aggregate critical care time was [] minutes. This time is in addition to time spent performing reported procedures but includes the following: [] Data Review and interpretation [] Patient assessment and monitoring of vital signs [] Documentation [] Medication orders and management Acute STEMI -status post cardiac cath with primary angioplasty and stenting of his subacute occlusion of the LAD at its ostium. Patient with residual 80% RCA stenosis w hich will be stage IV PCI in the future. -On heparin drip, aspirin, plavix and statin -Cardiology following Cardiogenic shock -Patient currently on IV Levophed and dobutamine. -Currently on intra-aortic balloon pump support. -Cardiology following Ischemic cardiomyopathy. LVEF 15-20%. New systolic heart failure with acute exacerbation -IV Lasix, cont BB, ACEI and aldactone. Sepsis secondary to Bilateral pneumonia versus UTI -Patient is on IV ceftriaxone and Azithro -blood culture neg so far DKA -resolved -cont SSI and Lantus and adjust as needed Hyponatremia, resolved Dyslipidemia -On statin Acute on chronic anemia -We will monitor H&H and transfuse as needed Disposition -Continue CCU care. Patient remains critically ill The high probability of a clinically significant, sudden or life threatening deterioration of the [cardiac, pulmonary and hemodynamic] system(s) required my full and direct attention, intervention and personal management. The aggregate critical care time was [34] minutes. This time is in addition to time spent performing reported procedures but includes the following: [x] Data Review and interpretation [x] Patient assessment and monitoring of vital signs [x] Documentation [x] Medication orders and management History Interval history: Events of last night noted. Patient was intubated and placed on mechanical ventilation. This morning patient had a second CODE BLUE with V. fib arrest. Patient received 1 shock and amiodarone bolus/IV drip. Hospitalist Physical - Constitutional Vitals: Temp Pulse Resp BP Pulse Ox 99.0 F 109 H 16 154/83 100 01/19/19 09:00 01/19/19 11:48 01/19/19 09:00 01/19/19 11:48 01/19/19 11:48 General appearance: Present: no acute distress, other (intubated on mechanical ventilation) - EENT Eyes: Present: PERRL, EOM intact ENT: hearing intact, clear oral mucosa, dentition normal - Neck Neck: Present: supple, normal ROM - Respiratory Respiratory effort: normal Respiratory: bilateral: diminished, rhonchi - Cardiovascular Rhythm: regular Heart Sounds: Present: S1 & S2. Absent: gallop, rub - Extremities Extremities: no ischemia, No edema, Full ROM - Abdominal General gastrointestinal: soft, non-tender, non-distended, normal bowel sounds - Integumentary Integumentary: Present: clear, warm, dry - Neurologic Neurologic: CNII-XII intact, moves all extremities Results - Labs CBC & Chem 7: 01/19/19 05:05 01/19/19 05:05 Labs: Laboratory Last Values WBC 10.9 K/mm3 (4.5-11.0) 01/19/19 05:05 RBC 2.92 M/mm3 (3.65-5.03) L 01/19/19 05:05 Hgb 9.2 gm/dl (11.8-15.2) L 01/19/19 05:05 Hct 26.3 % (35.5-45.6) L 01/19/19 05:05 MCV 90 fl (84-94) 01/19/19 05:05 MCH 31 pg (28-32) 01/19/19 05:05 MCHC 35 % (32-34) H 01/19/19 05:05 RDW 17.8 % (13.2-15.2) H 01/19/19 05:05 Plt Count 211 K/mm3 (140-440) 01/19/19 05:05 Lymph % (Auto) 13.4 % (13.4-35.0) 01/19/19 05:05 [place] % (Auto) 14.9 % (0.0-7.3) H 01/19/19 05:05 Eos % (Auto) 1.5 % (0.0-4.3) 01/19/19 05:05 Baso % (Auto) 0.5 % (0.0-1.8) 01/19/19 05:05 Lymph # 1.5 K/mm3 (1.2-5.4) 01/19/19 05:05 [place] # 1.6 K/mm3 (0.0-0.8) H 01/19/19 05:05 Eos # 0.2 K/mm3 (0.0-0.4) 01/19/19 05:05 Baso # 0.0 K/mm3 (0.0-0.1) 01/19/19 05:05 Seg Neutrophils % 69.7 % (40.0-70.0) 01/19/19 05:05 Seg Neutrophils # 7.6 K/mm3 (1.8-7.7) 01/19/19 05:05 PT 23.7 Sec. (12.2-14.9) H 01/14/19 18:50 INR 1.97 (0.87-1.13) H 01/14/19 18:50 APTT < 20.0 Sec. (24.2-36.6) L 01/14/19 18:50 Activated Clotting Time 252 (74-137) H 01/14/19 18:45 Heparin Anti-Xa Level 0.15 U.I./ml (0.3-0.7) L 01/19/19 06:20 POC ABG pH 7.529 (7.35-7.45) H 01/19/19 06:54 POC ABG pCO2 33.6 (35-45) L 01/19/19 06:54 POC ABG pO2 236 (80-105) H 01/19/19 06:54 POC ABG HCO3 28.0 (22-26 mml/L) 01/19/19 06:54 POC ABG Total CO2 29 (23-27mmol/L) 01/19/19 06:54 POC ABG O2 Sat 100 01/19/19 06:54 POC ABG Base Excess 5 ((-2) - (+3)mmol/L) 01/19/19 06:54 FiO2 50 % 01/19/19 06:54 Sodium 137 mmol/L (137-145) 01/19/19 05:05 Potassium 2.6 mmol/L (3.6-5.0) L* D 01/19/19 05:05 Chloride 95.1 mmol/L (98-107) L 01/19/19 05:05 Carbon Dioxide 28 mmol/L (22-30) 01/19/19 05:05 Anion Gap 17 mmol/L 01/19/19 05:05 BUN 6 mg/dL (9-20) L 01/19/19 05:05 Creatinine 0.8 mg/dL (0.8-1.5) 01/19/19 05:05 Estimated GFR > 60 ml/min 01/19/19 05:05 BUN/Creatinine Ratio 9 % 01/19/19 05:05 Glucose 239 mg/dL (75-100) H 01/19/19 05:05 POC Glucose 301 (70-105) H 01/18/19 22:22 Calcium 7.4 mg/dL (8.4-10.2) L 01/19/19 05:05 Phosphorus 1.50 mg/dL (2.5-4.5) L 01/19/19 09:05 Magnesium 2.00 mg/dL (1.7-2.3) 01/19/19 05:05 Total Bilirubin 0.20 mg/dL (0.1-1.2) 01/17/19 03:34 Direct Bilirubin < 0.2 mg/dL (0-0.2) 01/17/19 03:34 Indirect Bilirubin 0.0 mg/dL 01/17/19 03:34 AST 32 units/L (5-40) 01/17/19 03:34 ALT 77 units/L (7-56) H 01/17/19 03:34 Alkaline Phosphatase 159 units/L (35-129) H 01/17/19 03:34 Total Creatine Kinase 294 units/L (55-170) H 01/15/19 14:45 CK-MB (CK-2) 9.3 ng/mL (0.0-4.0) H 01/15/19 14:45 CK-MB (CK-2) Rel Index 3.1 (0-4) 01/15/19 14:45 Troponin T 3.300 ng/mL (0.00-0.029) H* D 01/15/19 14:45 NT-Pro-B Natriuret Pep 8727 pg/mL (0-900) H 01/14/19 18:50 Total Protein 5.1 g/dL (6.3-8.2) L 01/17/19 03:34 Albumin 2.4 g/dL (3.9-5) L 01/17/19 03:34 Albumin/Globulin Ratio 0.9 % 01/17/19 03:34 Triglycerides 106 mg/dL (2-149) 01/14/19 18:50 Cholesterol 139 mg/dL (50-199) 01/14/19 18:50 LDL Cholesterol Direct 103 mg/dL (50-130) 01/14/19 18:50 HDL Cholesterol 31 mg/dL (40-59) L 01/14/19 18:50 Cholesterol/HDL Ratio 4.48 % 01/14/19 18:50 TSH 3.710 mlU/mL (0.270-4.200) 01/14/19 18:50 Free T4 1.67 ng/dL (0.76-1.46) H 01/14/19 18:50 Urine Color Yellow (Yellow) 01/15/19 05:11 Urine Turbidity Slightly-cloudy (Clear) 01/15/19 05:11 Urine pH 5.0 (5.0-7.0) 01/15/19 05:11 Ur Specific [place] 1.046 (1.003-1.030) H 01/15/19 05:11 Urine Protein <15 mg/dl mg/dL (Negative) 01/15/19 05:11 Urine Glucose (UA) 50 mg/dL (Negative) 01/15/19 05:11 Urine Ketones Neg mg/dL (Negative) 01/15/19 05:11 Urine Blood Mod (Negative) 01/15/19 05:11 Urine Nitrite Neg (Negative) 01/15/19 05:11 Urine Bilirubin Neg (Negative) 01/15/19 05:11 Urine Urobilinogen < 2.0 mg/dL (<2.0) 01/15/19 05:11 Ur Leukocyte Esterase Neg (Negative) 01/15/19 05:11 Urine WBC (Auto) 19.0 /HPF (0.0-6.0) H 01/15/19 05:11 Urine RBC (Auto) 6.0 /HPF (0.0-6.0) 01/15/19 05:11 U Epithel Cells (Auto) < 1.0 /HPF (0-13.0) 01/15/19 05:11 Urine Mucus Few /HPF 01/15/19 05:11 Blood Type O POSITIVE 01/17/19 17:30 Antibody Screen Negative 01/17/19 17:30 Crossmatch See Detail 01/17/19 17:30 Active Medications - Current Medications Current Medications: Generic Name Dose Route Start Last Admin Trade Name Freq PRN Reason Stop Dose Admin Albuterol 2.5 mg 01/14/19 18:57 Proventil IH Q4HRT PRN Shortness Of Breath Aspirin 162 mg 01/15/19 10:00 01/19/19 10:00 Baby Aspirin PO Not Given QDAY ANAYELI Atorvastatin Calcium 40 mg 01/14/19 22:00 01/18/19 22:12 Lipitor PO 40 mg QHS ANAYELI Administration Benzocaine/Menthol 1 each 01/16/19 16:03 01/18/19 13:29 Cepacol X Strength MM 1 each Q2HR PRN Administration Sore Throat Clopidogrel Bisulfate 75 mg 01/15/19 10:00 01/19/19 10:00 Plavix PO Not Given QDAY ANAYELI Dextrose 50 ml 01/15/19 07:10 D50w (25gm) Syringe IV PRN PRN Hypoglycemia Docusate Sodium 100 mg 01/18/19 12:00 01/19/19 10:00 Colace FEEDTUBE Not Given DAILY ANAYELI Guaifenesin 10 ml 01/14/19 21:23 01/16/19 17:40 Guaifenesin Dm Syrup PO 10 ml Q4H PRN Administration Cough Hydrophilic Ointment 1 applic 01/18/19 21:26 Vaseline Lip Therapy TP Q2HR PRN Dry Lips Heparin Sodium (Porcine) 1,000 501 mls @ 0 mls/hr 01/17/19 09:00 01/17/19 21:20 unit/ Sodium Chloride IV 15 mls/hr DIRECT ANAYELI Administration Dobutamine HCl/Dextrose 500 mg in 250 mls @ 8.28 mls/hr 01/17/19 12:00 01/18/19 17:22 Dobutrex Drip 500mg/D5w 250ml IV 5 mcg/kg/min TITR ANAYELI 8.28 mls/hr Administration 5 MCG/KG/MIN Heparin Sodium/Sodium Chloride 25,000 unit in 500 mls @ 16 mls/hr 01/17/19 12:00 01/19/19 01:13 Heparin/ 0.45% Nacl-25,000 Unit/500 Ml IV 600 units/hr TITR ANAYELI 12 mls/hr Titration Protocol 800 UNITS/HR Norepinephrine 4 mg in 250 mls @ 7.5 mls/hr 01/17/19 15:00 01/19/19 11:29 Levophed Drip 4 Mg/Ns 250 Ml IV 20 mcg/min TITR ANAYELI 75 mls/hr Administration Protocol 2 MCG/MIN Propofol 1,000 mg in 100 mls @ 1.59 mls/hr 01/18/19 22:00 01/19/19 11:29 Diprivan 10 Mg/Ml IV 15 mcg/kg/min TITR ANAYELI 4.77 mls/hr Titration Protocol 5 MCG/KG/MIN Potassium Chloride 20 meq in 100 mls @ 100 mls/hr 01/19/19 09:00 01/19/19 11:11 Kcl 20meq/100ml IV 01/19/19 13:59 100 mls/hr Q1H ANAYELI Administration Fentanyl Citrate 2,000 mcg in 100 mls @ 2.65 mls/hr 01/19/19 09:00 01/19/19 12:14 Fentanyl Drip Premix IV 1 mcg/kg/hr TITR ANAYELI 2.65 mls/hr Administration Protocol 1 MCG/KG/HR Amiodarone HCl 900 mg/ 500 mls @ 33.333 mls/hr 01/19/19 10:00 01/19/19 10:24 Dextrose IV 1 mg/min DIRECT ANAYELI 33.333 mls/hr Administration Protocol 1 MG/MIN Insulin Human Regular 100 100 mls @ 1 mls/hr 01/19/19 13:00 units/ Sodium Chloride IV TITR ANAYELI Protocol 1 UNITS/HR Furosemide 100 mg/ Sodium 100 mls @ 5 mls/hr 01/19/19 13:00 Chloride IV TITRATE ANAYELI 5 MG/HR Potassium Phosphate 30 mmol/ 510 mls @ 83 mls/hr 01/19/19 13:00 Sodium Chloride IV 01/19/19 19:08 ONCE ONE Lansoprazole 30 mg 01/19/19 10:00 01/19/19 10:00 Prevacid Solutab FEEDTUBE Not Given QDAY ANAYELI Morphine Sulfate 2 mg 01/14/19 18:57 01/17/19 09:00 Morphine IV 2 mg Q4H PRN Administration Pain, Moderate (4-6) Multi-Ingred Cream/Lotion/Oil/Oint 1 applic 01/18/19 21:26 Artificial Tears Ophth Oint OU Q4HR PRN Dry Eye(s) Ondansetron HCl 4 mg 01/14/19 18:57 01/14/19 22:22 Zofran IV 4 mg Q8H PRN Administration Nausea And Vomiting Sodium Chloride 10 ml 01/14/19 22:00 01/19/19 11:21 Sodium Chloride Flush Syringe 10 Ml IV 10 ml BID ANAYELI Administration Sodium Chloride 10 ml 01/14/19 18:57 Sodium Chloride Flush Syringe 10 Ml IV PRN PRN LINE FLUSH
--- NOTE | 2019-01-19 12:41 | Progress Note ---
Assessment and Plan Labs/CXR/ABG reviewed Imp: 1. Acute STEMI s/p PCI 2. CAD 3. Ischemic cardiomyopathy 4. Cardiogenic shock 5. Acute systolic CHF with pulm edema 6. Acute respiratory failure, hypoxia 7. S/p Vfib arrest 8. Hypokalamia Rec: 1. Holding Lasix; repleting K; Mag acceptable; on Amiodarone drip now 2. On heparin drip/Levophed per cardiology; IABP to stay in today 3. F/u CXR in AM 4. Rest him on the ventilator today; wean off Propofol and use Versed/Fentanyl instead 5. Doubt pneumonia; completed 5 days of empiric ABX 6. Monitor H/H 7. Replete K and Mag; repeat levels in AM 8. Start insulin drip 9. Place PICC for additional access 10. Place OG for Plavix, PO meds, TFs 11. Prognosis guarded to poor; no family present CCT 31 minutes Subjective Date of service: 01/20/19 Principal diagnosis: [place] Interval history: Patient coded last PM and this AM with Vfib, required defibrillation/ACLS. He is now intubated, sedated on Propofol, arousable and does follow commands. Remains on heparin, Levophed, and is now on Amiodarone drip. Active Medications Albuterol (Proventil) 2.5 mg IH Q4HRT PRN PRN Reason: Shortness Of Breath Aspirin (Baby Aspirin) 162 mg PO QDAY [facility] Last Admin: 01/19/19 17:29 Dose: 162 mg Documented by: Atorvastatin Calcium (Lipitor) 40 mg PO QHS [facility] Last Admin: 01/19/19 21:49 Dose: 40 mg Documented by: Benzocaine/Menthol (Cepacol X Strength) 1 each MM Q2HR PRN PRN Reason: Sore Throat Last Admin: 01/18/19 13:29 Dose: 1 each Documented by: Clopidogrel Bisulfate (Plavix) 75 mg PO QDAY [facility] Last Admin: 01/19/19 17:29 Dose: 75 mg Documented by: Dextrose (D50w (25gm) Syringe) 50 ml IV PRN PRN PRN Reason: Hypoglycemia Docusate Sodium (Colace) 100 mg FEEDTUBE DAILY [facility] Last Admin: 01/19/19 10:00 Dose: Not Given Documented by: Guaifenesin (Guaifenesin Dm Syrup) 10 ml PO Q4H PRN PRN Reason: Cough Last Admin: 01/16/19 17:40 Dose: 10 ml Documented by: Hydrophilic Ointment (Vaseline Lip Therapy) 1 applic TP Q2HR PRN PRN Reason: Dry Lips Heparin Sodium (Porcine) 1,000 (unit/ Sodium Chloride) 501 mls @ 0 mls/hr IV DIRECT ANAYELI Last Admin: 01/17/19 21:20 Dose: 15 mls/hr Documented by: Dobutamine HCl/Dextrose (Dobutrex Drip 500mg/D5w 250ml) 500 mg in 250 mls @ 4 .968 mls/hr IV TITR ANAYELI Last Admin: 01/20/19 05:31 Dose: 3 mcg/kg/min, 4.968 mls/hr Documented by: Heparin Sodium/Sodium Chloride (Heparin/ 0.45% Nacl-25,000 Unit/500 Ml) 25,000 unit in 500 mls @ 16 mls/hr IV TITR ANAYELI; Protocol Last Titration: 01/20/19 07:16 Dose: 600 units/hr, 12 mls/hr Documented by: Propofol (Diprivan 10 Mg/Ml) 1,000 mg in 100 mls @ 1.59 mls/hr IV TITR ANAYELI; Protocol Last Titration: 01/19/19 16:59 Dose: 0 mcg/kg/min, 0 mls/hr Documented by: Fentanyl Citrate (Fentanyl Drip Premix) 2,000 mcg in 100 mls @ 2.65 mls/hr IV TITR ANAYELI; Protocol Last Titration: 01/20/19 09:02 Dose: 4 mcg/kg/hr, 10.6 mls/hr Documented by: Amiodarone HCl 900 mg/ (Dextrose) 500 mls @ 33.333 mls/hr IV DIRECT ANAYELI; Protocol Last Admin: 01/20/19 02:54 Dose: 0.5 mg/min, 16.667 mls/hr Documented by: Insulin Human Regular 100 (units/ Sodium Chloride) 100 mls @ 1 mls/hr IV TITR ANAYELI; Protocol Last Titration: 01/20/19 09:13 Dose: 1.5 units/hr, 1.5 mls/hr Documented by: Furosemide 100 mg/ Sodium (Chloride) 100 mls @ 5 mls/hr IV TITRATE ANAYELI Last Admin: 01/19/19 17:22 Dose: 2.5 mg/hr, 2.5 mls/hr Documented by: Lidocaine HCl/Dextrose (Xylocaine/D5w 2gm/500ml Drip) 2,000 mg in 500 mls @ 15 mls/hr IV DIRECT ANAYELI; Protocol Last Admin: 01/19/19 14:10 Dose: 1 mg/min, 15 mls/hr Documented by: Norepinephrine 8 mg/ Sodium (Chloride) 250 mls @ 3.75 mls/hr IV TITR ANAYELI; Protocol Last Titration: 01/20/19 08:30 Dose: 16 mcg/min, 30 mls/hr Documented by: Magnesium Sulfate (Magnesium Sulfate 2gm/50ml) 2 gm in 50 mls @ 25 mls/hr IV ONCE ONE Stop: 01/20/19 11:59 Last Admin: 01/20/19 10:04 Dose: 25 mls/hr Documented by: Lansoprazole (Prevacid Solutab) 30 mg FEEDTUBE QDAY [facility] Last Admin: 01/19/19 10:00 Dose: Not Given Documented by: Morphine Sulfate (Morphine) 2 mg IV Q4H PRN PRN Reason: Pain, Moderate (4-6) Last Admin: 01/17/19 09:00 Dose: 2 mg Documented by: Multi-Ingred Cream/Lotion/Oil/Oint (Artificial Tears Ophth Oint) 1 applic OU Q4HR PRN PRN Reason: Dry Eye(s) Ondansetron HCl (Zofran) 4 mg IV Q8H PRN PRN Reason: Nausea And Vomiting Last Admin: 01/14/19 22:22 Dose: 4 mg Documented by: Sodium Chloride (Sodium Chloride Flush Syringe 10 Ml) 10 ml IV BID [facility] Last Admin: 01/19/19 21:49 Dose: 10 ml Documented by: Sodium Chloride (Sodium Chloride Flush Syringe 10 Ml) 10 ml IV PRN PRN PRN Reason: LINE FLUSH Objective Vital Signs - 12hr 01/19/19 01/19/19 01/19/19 00:46 01:00 01:16 Temperature Pulse Rate 110 H 101 H 114 H Pulse Rate [ From Monitor] Respiratory 16 16 17 Rate Blood Pressure 163/78 157/34 157/34 O2 Sat by Pulse 100 100 100 Oximetry 01/19/19 01/19/19 01/19/19 01:30 01:46 02:00 Temperature Pulse Rate 122 H 107 H 110 H Pulse Rate [ 123 H From Monitor] Respiratory 20 16 16 Rate Blood Pressure 157/34 142/82 152/78 O2 Sat by Pulse 100 100 100 Oximetry 01/19/19 01/19/19 01/19/19 02:15 02:30 02:46 Temperature Pulse Rate 124 H 106 H 103 H Pulse Rate [ From Monitor] Respiratory 16 16 16 Rate Blood Pressure 155/89 161/95 147/69 O2 Sat by Pulse 100 100 100 Oximetry 01/19/19 01/19/19 01/19/19 03:00 03:16 03:30 Temperature Pulse Rate 100 H 100 H 111 H Pulse Rate [ From Monitor] Respiratory 17 16 15 Rate Blood Pressure 162/93 169/100 163/95 O2 Sat by Pulse 100 100 100 Oximetry 01/19/19 01/19/19 01/19/19 03:46 04:00 04:16 Temperature 98.9 F Pulse Rate 99 H 100 H 117 H Pulse Rate [ 123 H From Monitor] Respiratory 16 16 17 Rate Blood Pressure 168/102 170/96 170/96 O2 Sat by Pulse 99 100 100 Oximetry 01/19/19 01/19/19 01/19/19 04:30 04:46 05:00 Temperature Pulse Rate 100 H 102 H 100 H Pulse Rate [ From Monitor] Respiratory 16 16 16 Rate Blood Pressure 170/88 165/64 132/73 O2 Sat by Pulse 100 99 100 Oximetry 01/19/19 01/19/19 01/19/19 05:15 05:20 05:30 Temperature Pulse Rate 113 H 95 H 99 H Pulse Rate [ From Monitor] Respiratory 16 19 16 Rate Blood Pressure 158/92 172/75 174/84 O2 Sat by Pulse 100 100 100 Oximetry 01/19/19 01/19/19 01/19/19 05:46 06:00 06:16 Temperature Pulse Rate 99 H 101 H 101 H Pulse Rate [ 123 H From Monitor] Respiratory 16 16 16 Rate Blood Pressure 174/84 172/75 172/75 O2 Sat by Pulse 100 100 100 Oximetry 01/19/19 01/19/19 01/19/19 06:30 06:46 07:00 Temperature Pulse Rate 99 H 98 H 115 H Pulse Rate [ From Monitor] Respiratory 16 16 16 Rate Blood Pressure 174/79 163/65 147/69 O2 Sat by Pulse 100 100 99 Oximetry 01/19/19 01/19/19 01/19/19 07:16 07:30 07:46 Temperature Pulse Rate 100 H 102 H 102 H Pulse Rate [ From Monitor] Respiratory 16 16 14 Rate Blood Pressure 147/69 147/69 164/84 O2 Sat by Pulse 99 99 100 Oximetry 01/19/19 01/19/19 01/19/19 07:57 08:00 08:16 Temperature 99.0 F Pulse Rate 96 H 96 H 96 H Pulse Rate [ From Monitor] Respiratory 16 16 Rate Blood Pressure 174/75 164/84 169/72 O2 Sat by Pulse 100 100 99 Oximetry 01/19/19 01/19/19 01/19/19 08:30 09:00 11:48 Temperature 99.0 F Pulse Rate 105 H 103 H 109 H Pulse Rate [ From Monitor] Respiratory 16 16 Rate Blood Pressure 169/85 163/79 154/83 O2 Sat by Pulse 100 100 100 Oximetry Constitutional: other (critically ill on pressors and ventilator) Eyes: non-icteric ENT: oropharynx moist Neck: supple Effort: normal Ascultation: Bilateral: rales, other (coarse BS bilaterally) Cardiovascular: other (tachy, RR; + gallop (? summation); loud systolic murmur throughout) Gastrointestinal: normoactive bowel sounds, soft, non-tender, non-distended Integumentary: normal Extremities: no cyanosis, no edema, pink and warm Neurologic: normal mental status, non-focal exam, pupils equal and round, CN II- XII normal Psychiatric: mood appropriate, affect normal CBC and BMP: 01/20/19 04:00 01/20/19 04:00 ABG, PT/INR, D-dimer: ABG POC ABG pH 7.529 (7.35-7.45) H 01/19/19 06:54 POC ABG pCO2 33.6 (35-45) L 01/19/19 06:54 POC ABG pO2 236 (80-105) H 01/19/19 06:54 POC ABG HCO3 28.0 (22-26 mml/L) 01/19/19 06:54 POC ABG Total CO2 29 (23-27mmol/L) 01/19/19 06:54 POC ABG O2 Sat 100 01/19/19 06:54 PT/INR, D-dimer PT 23.7 Sec. (12.2-14.9) H 01/14/19 18:50 INR 1.97 (0.87-1.13) H 01/14/19 18:50 Abnormal lab findings: Abnormal Labs 01/14/19 01/14/19 01/14/19 18:45 18:50 18:50 WBC RBC Hgb Hct MCV MCHC RDW Lymph % (Auto) [place] % (Auto) [place] # Seg Neutrophils % Seg Neutrophils # PT 23.7 H INR 1.97 H APTT < 20.0 L Activated Clotting Time 252 H Heparin Anti-Xa Level POC ABG pH POC ABG pCO2 POC ABG pO2 Sodium 123 L Potassium 5.8 H Chloride 87.7 L Carbon Dioxide 13 L BUN 27 H Creatinine 1.7 H Glucose 474 H POC Glucose Calcium 8.2 L Phosphorus Magnesium AST 70 H ALT 73 H Alkaline Phosphatase Total Creatine Kinase CK-MB (CK-2) Troponin T 1.780 H* NT-Pro-B Natriuret Pep 8727 H Total Protein 6.0 L Albumin 2.8 L HDL Cholesterol Free T4 Ur Specific [place] Urine WBC (Auto) Crossmatch 01/14/19 01/14/19 01/14/19 18:50 18:50 18:50 WBC 13.9 H RBC 3.26 L Hgb 10.5 L Hct 31.9 L MCV 98 H MCHC RDW 17.0 H Lymph % (Auto) 8.3 L [place] % (Auto) [place] # Seg Neutrophils % 86.6 H Seg Neutrophils # 12.1 H PT INR APTT Activated Clotting Time Heparin Anti-Xa Level POC ABG pH POC ABG pCO2 POC ABG pO2 Sodium Potassium Chloride Carbon Dioxide BUN Creatinine Glucose POC Glucose Calcium Phosphorus Magnesium AST ALT Alkaline Phosphatase Total Creatine Kinase CK-MB (CK-2) Troponin T 1.760 H* NT-Pro-B Natriuret Pep Total Protein Albumin HDL Cholesterol 31 L Free T4 1.67 H Ur Specific [place] Urine WBC (Auto) Crossmatch 01/14/19 01/14/19 01/14/19 21:12 21:42 23:05 WBC RBC Hgb Hct MCV MCHC RDW Lymph % (Auto) [place] % (Auto) [place] # Seg Neutrophils % Seg Neutrophils # PT INR APTT Activated Clotting Time Heparin Anti-Xa Level POC ABG pH POC ABG pCO2 POC ABG pO2 Sodium 130 L D Potassium 5.4 H Chloride 90.9 L Carbon Dioxide 17 L BUN 28 H Creatinine Glucose 504 H* POC Glucose 437 H 372 H Calcium 8.2 L Phosphorus Magnesium AST ALT Alkaline Phosphatase Total Creatine Kinase CK-MB (CK-2) Troponin T NT-Pro-B Natriuret Pep Total Protein Albumin HDL Cholesterol Free T4 Ur Specific [place] Urine WBC (Auto) Crossmatch 01/14/19 01/15/19 01/15/19 23:40 00:07 01:12 WBC RBC Hgb Hct MCV MCHC RDW Lymph % (Auto) [place] % (Auto) [place] # Seg Neutrophils % Seg Neutrophils # PT INR APTT Activated Clotting Time Heparin Anti-Xa Level POC ABG pH POC ABG pCO2 POC ABG pO2 Sodium Potassium Chloride Carbon Dioxide BUN Creatinine Glucose POC Glucose 389 H 384 H 311 H Calcium Phosphorus Magnesium AST ALT Alkaline Phosphatase Total Creatine Kinase CK-MB (CK-2) Troponin T NT-Pro-B Natriuret Pep Total Protein Albumin HDL Cholesterol Free T4 Ur Specific [place] Urine WBC (Auto) Crossmatch 01/15/19 01/15/19 01/15/19 01:20 01:20 02:29 WBC RBC Hgb Hct MCV MCHC RDW Lymph % (Auto) [place] % (Auto) [place] # Seg Neutrophils % Seg Neutrophils # PT INR APTT Activated Clotting Time Heparin Anti-Xa Level 0.99 H POC ABG pH POC ABG pCO2 POC ABG pO2 Sodium 134 L Potassium Chloride Carbon Dioxide 20 L BUN 29 H Creatinine Glucose 299 H POC Glucose 289 H Calcium 7.6 L Phosphorus Magnesium AST ALT Alkaline Phosphatase Total Creatine Kinase CK-MB (CK-2) Troponin T NT-Pro-B Natriuret Pep Total Protein Albumin HDL Cholesterol Free T4 Ur Specific [place] Urine WBC (Auto) Crossmatch 01/15/19 01/15/19 01/15/19 03:10 03:23 03:23 WBC 13.6 H RBC 3.01 L Hgb 9.5 L Hct 29.0 L MCV 96 H MCHC RDW 16.8 H Lymph % (Auto) 9.3 L [place] % (Auto) 10.1 H [place] # 1.4 H Seg Neutrophils % 80.3 H Seg Neutrophils # 10.9 H PT INR APTT Activated Clotting Time Heparin Anti-Xa Level POC ABG pH POC ABG pCO2 POC ABG pO2 Sodium 133 L Potassium Chloride Carbon Dioxide 21 L BUN 30 H Creatinine Glucose 190 H POC Glucose 227 H Calcium 7.4 L Phosphorus Magnesium AST ALT Alkaline Phosphatase Total Creatine Kinase CK-MB (CK-2) Troponin T NT-Pro-B Natriuret Pep Total Protein Albumin HDL Cholesterol Free T4 Ur Specific [place] Urine WBC (Auto) Crossmatch 01/15/19 01/15/19 01/15/19 03:23 04:49 05:11 WBC RBC Hgb Hct MCV MCHC RDW Lymph % (Auto) [place] % (Auto) [place] # Seg Neutrophils % Seg Neutrophils # PT INR APTT Activated Clotting Time Heparin Anti-Xa Level 0.85 H POC ABG pH POC ABG pCO2 POC ABG pO2 Sodium Potassium Chloride Carbon Dioxide BUN Creatinine Glucose POC Glucose 171 H Calcium Phosphorus Magnesium AST ALT Alkaline Phosphatase Total Creatine Kinase CK-MB (CK-2) Troponin T NT-Pro-B Natriuret Pep Total Protein Albumin HDL Cholesterol Free T4 Ur Specific [place] 1.046 H Urine WBC (Auto) 19.0 H Crossmatch 01/15/19 01/15/19 01/15/19 05:50 06:19 07:38 WBC RBC Hgb Hct MCV MCHC RDW Lymph % (Auto) [place] % (Auto) [place] # Seg Neutrophils % Seg Neutrophils # PT INR APTT Activated Clotting Time Heparin Anti-Xa Level POC ABG pH POC ABG pCO2 POC ABG pO2 Sodium 134 L Potassium Chloride 97.6 L Carbon Dioxide 20 L BUN 30 H Creatinine Glucose POC Glucose 118 H 120 H Calcium 7.9 L Phosphorus Magnesium AST ALT Alkaline Phosphatase Total Creatine Kinase CK-MB (CK-2) Troponin T NT-Pro-B Natriuret Pep Total Protein Albumin HDL Cholesterol Free T4 Ur Specific [place] Urine WBC (Auto) Crossmatch 01/15/19 01/15/19 01/15/19 08:08 11:24 14:45 WBC RBC Hgb Hct MCV MCHC RDW Lymph % (Auto) [place] % (Auto) [place] # Seg Neutrophils % Seg Neutrophils # PT INR APTT Activated Clotting Time Heparin Anti-Xa Level POC ABG pH POC ABG pCO2 POC ABG pO2 Sodium 132 L Potassium Chloride Carbon Dioxide BUN 31 H Creatinine Glucose 200 H POC Glucose 110 H 173 H Calcium 8.0 L Phosphorus Magnesium AST ALT Alkaline Phosphatase Total Creatine Kinase 294 H CK-MB (CK-2) 9.3 H Troponin T 3.300 H* D NT-Pro-B Natriuret Pep Total Protein Albumin HDL Cholesterol Free T4 Ur Specific [place] Urine WBC (Auto) Crossmatch 01/15/19 01/15/19 01/15/19 16:19 20:39 21:05 WBC RBC Hgb Hct MCV MCHC RDW Lymph % (Auto) [place] % (Auto) [place] # Seg Neutrophils % Seg Neutrophils # PT INR APTT Activated Clotting Time Heparin Anti-Xa Level 0.71 H POC ABG pH POC ABG pCO2 POC ABG pO2 Sodium Potassium Chloride Carbon Dioxide BUN Creatinine Glucose POC Glucose 170 H 159 H Calcium Phosphorus Magnesium AST ALT Alkaline Phosphatase Total Creatine Kinase CK-MB (CK-2) Troponin T NT-Pro-B Natriuret Pep Total Protein Albumin HDL Cholesterol Free T4 Ur Specific [place] Urine WBC (Auto) Crossmatch 01/16/19 01/16/19 01/16/19 05:00 05:00 11:35 WBC 13.5 H RBC 2.58 L Hgb 8.4 L Hct 24.5 L MCV 95 H MCHC RDW 16.4 H Lymph % (Auto) 11.1 L [place] % (Auto) 8.4 H [place] # 1.1 H Seg Neutrophils % 80.1 H Seg Neutrophils # 10.8 H PT INR APTT Activated Clotting Time Heparin Anti-Xa Level POC ABG pH POC ABG pCO2 POC ABG pO2 Sodium Potassium Chloride Carbon Dioxide BUN 23 H Creatinine Glucose 68 L POC Glucose 237 H Calcium 7.8 L Phosphorus Magnesium AST ALT Alkaline Phosphatase Total Creatine Kinase CK-MB (CK-2) Troponin T NT-Pro-B Natriuret Pep Total Protein Albumin HDL Cholesterol Free T4 Ur Specific [place] Urine WBC (Auto) Crossmatch 01/16/19 01/17/19 01/17/19 16:37 03:34 03:34 WBC 11.5 H RBC 2.33 L Hgb 7.3 L Hct 22.0 L MCV 95 H MCHC RDW 17.0 H Lymph % (Auto) 11.2 L [place] % (Auto) 9.8 H [place] # 1.1 H Seg Neutrophils % 78.1 H Seg Neutrophils # 9.0 H PT INR APTT Activated Clotting Time Heparin Anti-Xa Level POC ABG pH POC ABG pCO2 POC ABG pO2 Sodium Potassium Chloride Carbon Dioxide BUN Creatinine Glucose POC Glucose 224 H Calcium Phosphorus Magnesium AST ALT 77 H Alkaline Phosphatase 159 H Total Creatine Kinase CK-MB (CK-2) Troponin T NT-Pro-B Natriuret Pep Total Protein 5.1 L Albumin 2.4 L HDL Cholesterol Free T4 Ur Specific [place] Urine WBC (Auto) Crossmatch 01/17/19 01/17/19 01/17/19 08:12 11:29 14:42 WBC RBC Hgb Hct MCV MCHC RDW Lymph % (Auto) [place] % (Auto) [place] # Seg Neutrophils % Seg Neutrophils # PT INR APTT Activated Clotting Time Heparin Anti-Xa Level 0.19 L POC ABG pH POC ABG pCO2 POC ABG pO2 Sodium Potassium Chloride Carbon Dioxide BUN Creatinine Glucose POC Glucose 136 H 228 H Calcium Phosphorus Magnesium AST ALT Alkaline Phosphatase Total Creatine Kinase CK-MB (CK-2) Troponin T NT-Pro-B Natriuret Pep Total Protein Albumin HDL Cholesterol Free T4 Ur Specific [place] Urine WBC (Auto) Crossmatch 01/17/19 01/17/19 01/17/19 15:37 17:30 21:45 WBC RBC Hgb Hct MCV MCHC RDW Lymph % (Auto) [place] % (Auto) [place] # Seg Neutrophils % Seg Neutrophils # PT INR APTT Activated Clotting Time Heparin Anti-Xa Level POC ABG pH POC ABG pCO2 POC ABG pO2 Sodium Potassium Chloride Carbon Dioxide BUN Creatinine Glucose POC Glucose 293 H 281 H Calcium Phosphorus Magnesium AST ALT Alkaline Phosphatase Total Creatine Kinase CK-MB (CK-2) Troponin T NT-Pro-B Natriuret Pep Total Protein Albumin HDL Cholesterol Free T4 Ur Specific [place] Urine WBC (Auto) Crossmatch See Detail 01/17/19 01/18/19 01/18/19 23:34 04:10 04:10 WBC 13.2 H RBC 3.12 L Hgb 9.6 L Hct 28.6 L D MCV MCHC RDW 17.6 H Lymph % (Auto) 11.4 L [place] % (Auto) 11.9 H [place] # 1.6 H Seg Neutrophils % 76.0 H Seg Neutrophils # 10.0 H PT INR APTT Activated Clotting Time Heparin Anti-Xa Level > 2.00 H POC ABG pH POC ABG pCO2 POC ABG pO2 Sodium Potassium 3.3 L Chloride Carbon Dioxide BUN Creatinine Glucose 260 H POC Glucose Calcium 8.0 L Phosphorus Magnesium 1.60 L AST ALT Alkaline Phosphatase Total Creatine Kinase CK-MB (CK-2) Troponin T NT-Pro-B Natriuret Pep Total Protein Albumin HDL Cholesterol Free T4 Ur Specific [place] Urine WBC (Auto) Crossmatch 01/18/19 01/18/19 01/18/19 08:43 09:15 11:49 WBC RBC Hgb Hct MCV MCHC RDW Lymph % (Auto) [place] % (Auto) [place] # Seg Neutrophils % Seg Neutrophils # PT INR APTT Activated Clotting Time Heparin Anti-Xa Level < 0.10 L POC ABG pH POC ABG pCO2 POC ABG pO2 Sodium Potassium Chloride Carbon Dioxide BUN Creatinine Glucose POC Glucose 317 H 307 H Calcium Phosphorus Magnesium AST ALT Alkaline Phosphatase Total Creatine Kinase CK-MB (CK-2) Troponin T NT-Pro-B Natriuret Pep Total Protein Albumin HDL Cholesterol Free T4 Ur Specific [place] Urine WBC (Auto) Crossmatch 01/18/19 01/18/19 01/18/19 17:10 17:19 22:22 WBC RBC Hgb Hct MCV MCHC RDW Lymph % (Auto) [place] % (Auto) [place] # Seg Neutrophils % Seg Neutrophils # PT INR APTT Activated Clotting Time Heparin Anti-Xa Level 0.12 L POC ABG pH POC ABG pCO2 POC ABG pO2 Sodium Potassium Chloride Carbon Dioxide BUN Creatinine Glucose POC Glucose 268 H 301 H Calcium Phosphorus Magnesium AST ALT Alkaline Phosphatase Total Creatine Kinase CK-MB (CK-2) Troponin T NT-Pro-B Natriuret Pep Total Protein Albumin HDL Cholesterol Free T4 Ur Specific [place] Urine WBC (Auto) Crossmatch 01/18/19 01/19/19 01/19/19 23:45 05:05 05:05 WBC RBC 2.92 L Hgb 9.2 L Hct 26.3 L MCV MCHC 35 H RDW 17.8 H Lymph % (Auto) [place] % (Auto) 14.9 H [place] # 1.6 H Seg Neutrophils % Seg Neutrophils # PT INR APTT Activated Clotting Time Heparin Anti-Xa Level 0.10 L POC ABG pH POC ABG pCO2 POC ABG pO2 Sodium Potassium 2.6 L* D Chloride 95.1 L Carbon Dioxide BUN 6 L Creatinine Glucose 239 H POC Glucose Calcium 7.4 L Phosphorus Magnesium AST ALT Alkaline Phosphatase Total Creatine Kinase CK-MB (CK-2) Troponin T NT-Pro-B Natriuret Pep Total Protein Albumin HDL Cholesterol Free T4 Ur Specific [place] Urine WBC (Auto) Crossmatch 01/19/19 01/19/19 01/19/19 06:20 06:54 09:05 WBC RBC Hgb Hct MCV MCHC RDW Lymph % (Auto) [place] % (Auto) [place] # Seg Neutrophils % Seg Neutrophils # PT INR APTT Activated Clotting Time Heparin Anti-Xa Level 0.15 L POC ABG pH 7.529 H POC ABG pCO2 33.6 L POC ABG pO2 236 H Sodium Potassium Chloride Carbon Dioxide BUN Creatinine Glucose POC Glucose Calcium Phosphorus 1.50 L Magnesium AST ALT Alkaline Phosphatase Total Creatine Kinase CK-MB (CK-2) Troponin T NT-Pro-B Natriuret Pep Total Protein Albumin HDL Cholesterol Free T4 Ur Specific [place] Urine WBC (Auto) Crossmatch Chest x-ray: report reviewed, image reviewed (mild improvement in pulm edema)
[2019-01-19] MEDS ORDERED: NACL 0.9% 1000 ML 1,000 ML ONE (12:49)
--- NOTE | 2019-01-19 12:54 | XRay Report ---
ABDOMEN RADIOGRAPH INDICATION: Confirm feeding tube placement. COMPARISON: Yesterday. FINDINGS: Frontal abdominal radiograph, 2:26 PM, 01/19/2019 demonstrates new esophagogastric tube tip about the antrum. Nonobstructive bowel gas pattern. Clear imaged lower lungs. Intact bones. Few other extrinsic artifacts/iatrogenic changes. CONCLUSION: Feeding tube tip about the mid stomach, as described. Thank you for the opportunity to participate in this patient's care.
[2019-01-19] MEDS ORDERED: KPHOS 30 MMOL in NACL 0.9% 500 ML 500 ML IV ONE (13:00)
[2019-01-19] MEDS ORDERED: ISORDIL TITRADOSE PO SCH (14:00)
--- NOTE | 2019-01-19 14:05 | Event Note ---
Date: 01/18/19 code blue called. Pt treated IAW ACLS protocol with return of perfusing rhythm. Pt intubated, placed on vent support. Pt stabilized. 60 minutes of critical care time dedicated to patient care. Chest X ray reviewed.
[2019-01-19] MEDS: XYLOCAINE/D5W 2GM/500ML DRIP 2,000 MG/500 ML BAG IV SCH (14:10)
--- NOTE | 2019-01-19 15:53 | XRay Report ---
PORTABLE CHEST INDICATION: Right arm PICC placement. COMPARISON: 7:46 AM earlier today. FINDINGS: Portable, frontal chest radiograph, 3:31 PM, 01/19/2019 demonstrates new right upper extremity PICC tip about the cavoatrial junction, overlying the spine. No pneumothorax, though right apical peripheral haziness measuring up to 1 cm thickness appears new and nonspecific. New esophagogastric tube extending into the stomach and beyond the inferior radiographic margin also noted. Stable remainder supporting devices, cardiomediastinal silhouette and aortic knob calcifications. Increased upper to midlung zone perihilar airspace opacities, left more than right with faint air bronchograms. Lung bases remain clear. Stable EKG leads and osseous structures. CONCLUSION: 1. Worsening pulmonary edema pattern with new nonspecific right apical peripheral opacity/thickening now noted, as described. Please also correlate clinically and followup on subsequent exams. 2. New right upper extremity PICC and esophagogastric tube. Remainder supporting devices stable. Thank you for the opportunity to participate in this patient's care.
[2019-01-19 16:20] LABS: BUN/Creatinine Ratio 11; Blood Urea Nitrogen 8 mg/dL (9-20); Calcium 6.9 mg/dL (8.4-10.2); Hemolysis Index 1
[2019-01-19] MEDS: LASIX 100 MG in NACL 0.9% 90 ML IV SCH (17:22)
[2019-01-19] MEDS: HumuLIN R 100 UNITS in NACL 0.9% 99 ML IV SCH (17:52)
[2019-01-19] MEDS: LEVOPHED 8 MG in NACL 0.9% 250ML 242 ML IV SCH (20:19)
[2019-01-20] MEDS: LEVOPHED 8 MG in NACL 0.9% 250ML 242 ML IV SCH ×3 (00:56→15:21)
[2019-01-20] MEDS: CORDARONE 900 MG in D5W 482 ML IV SCH (02:54)
[2019-01-20 05:25] LABS: Basophils # (Auto) 0.1 K/mm3 (0.0-0.1); Basophils % (Auto) 0.5 % (0.0-1.8); Eosinophils # (Auto) 0.2 K/mm3 (0.0-0.4); Eosinophils % (Auto) 1.6 % (0.0-4.3); Hematocrit 27.7 % (35.5-45.6); Hemoglobin 9.3 gm/dl (11.8-15.2); Lymphocytes # (Auto) 1.2 K/mm3 (1.2-5.4); Lymphocytes % (Auto) 8.1 % (13.4-35.0); Mean Corpuscular HGB Conc 34 % (32-34); Mean Corpuscular Volume 92 fl (84-94); Monocytes # (Auto) 1.8 K/mm3 (0.0-0.8); Monocytes % (Auto) 12.3 % (0.0-7.3); Platelet Count 219 K/mm3 (140-440); Red Blood Count 3.02 M/mm3 (3.65-5.03); Red Cell Distribution Width 17.9 % (13.2-15.2)
[2019-01-20] MEDS: DOBUTREX DRIP 500MG/D5W 250ML 500 MG/250 ML BAG IV SCH (05:31)
[2019-01-20 05:50] LABS: BUN/Creatinine Ratio 10; Blood Urea Nitrogen 8 mg/dL (9-20); Calcium 7.3 mg/dL (8.4-10.2); Hemolysis Index 183
[2019-01-20] MEDS ORDERED: MAGNESIUM SULFATE IV ONE (09:10)
[2019-01-20] MEDS ORDERED: MAGNESIUM SULFATE 1 GM in NACL 0.9% 50 ML IV ONE (10:00)
[2019-01-20] MEDS ORDERED: MAGNESIUM SULFATE 2GM/50ML 2 GM/50 ML BAG IV ONE (10:00)
[2019-01-20] MEDS: PREVACID SOLUTAB FEEDTUBE SCH (10:34)
[2019-01-20] MEDS: PLAVIX PO SCH (10:34)
[2019-01-20] MEDS: BABY ASPIRIN PO SCH (10:34)
[2019-01-20] MEDS: COLACE FEEDTUBE SCH (10:35)
[2019-01-20] MEDS: SODIUM CHLORIDE FLUSH SYRINGE 10 ML IV SCH (10:46)
--- NOTE | 2019-01-20 12:32 | Progress Note ---
Assessment and Plan Labs/CXR/ABG reviewed Imp: 1. Acute STEMI s/p PCI 2. CAD 3. Ischemic cardiomyopathy 4. Cardiogenic shock 5. Acute systolic CHF with pulm edema 6. Acute respiratory failure, hypoxia 7. S/p Vfib arrest 8. Hypokalamia/hypomagnesemia Rec: 1. Amio/Lidocaine/Lasix/Heparin/Dobutamine per cardiology; mag repleted 2. On heparin drip/Levophed per cardiology; IABP to stay in today 3. F/u CXR periodically; 4. Rest him on the ventilator today; Fentanyl drip; increase PEEP to 8, decrease FiO2 to 60% 5. Doubt pneumonia; completed 5 days of empiric ABX; repeat sputum, blood, urine cultures 6. Monitor H/H 7. Insulin drip 8. Placed PICC for additional access 9. Placed OG for Plavix, PO meds, TFs 10. Prognosis guarded to poor; no family present CCT 31 minutes Subjective Date of service: 01/20/19 Principal diagnosis: Acute respiratory failure Interval history: Stable overnight on Vent, but FiO2 was bumped up to 100%, now down to 70%. PEEP at 6. He is sedated but arouses and follows commands. On multiple drips and IABP. Active Medications Albuterol (Proventil) 2.5 mg IH Q4HRT PRN PRN Reason: Shortness Of Breath Aspirin (Baby Aspirin) 162 mg PO QDAY [facility] Last Admin: 01/20/19 10:34 Dose: 162 mg Documented by: Atorvastatin Calcium (Lipitor) 40 mg PO QHS [facility] Last Admin: 01/19/19 21:49 Dose: 40 mg Documented by: Benzocaine/Menthol (Cepacol X Strength) 1 each MM Q2HR PRN PRN Reason: Sore Throat Last Admin: 01/18/19 13:29 Dose: 1 each Documented by: Clopidogrel Bisulfate (Plavix) 75 mg PO QDAY [facility] Last Admin: 01/20/19 10:34 Dose: 75 mg Documented by: Dextrose (D50w (25gm) Syringe) 50 ml IV PRN PRN PRN Reason: Hypoglycemia Docusate Sodium (Colace) 100 mg FEEDTUBE DAILY [facility] Last Admin: 01/20/19 10:35 Dose: 100 mg Documented by: Guaifenesin (Guaifenesin Dm Syrup) 10 ml PO Q4H PRN PRN Reason: Cough Last Admin: 01/16/19 17:40 Dose: 10 ml Documented by: Hydrophilic Ointment (Vaseline Lip Therapy) 1 applic TP Q2HR PRN PRN Reason: Dry Lips Heparin Sodium (Porcine) 1,000 (unit/ Sodium Chloride) 501 mls @ 0 mls/hr IV DIRECT ANAYELI Last Admin: 01/17/19 21:20 Dose: 15 mls/hr Documented by: Dobutamine HCl/Dextrose (Dobutrex Drip 500mg/D5w 250ml) 500 mg in 250 mls @ 4.968 mls/hr IV TITR ANAYELI Last Admin: 01/20/19 05:31 Dose: 3 mcg/kg/min, 4.968 mls/hr Documented by: Heparin Sodium/Sodium Chloride (Heparin/ 0.45% Nacl-25,000 Unit/500 Ml) 25,000 unit in 500 mls @ 16 mls/hr IV TITR ANAYELI; Protocol Last Titration: 01/20/19 07:16 Dose: 600 units/hr, 12 mls/hr Documented by: Propofol (Diprivan 10 Mg/Ml) 1,000 mg in 100 mls @ 1.59 mls/hr IV TITR ANAYELI; Protocol Last Titration: 01/19/19 16:59 Dose: 0 mcg/kg/min, 0 mls/hr Documented by: Fentanyl Citrate (Fentanyl Drip Premix) 2,000 mcg in 100 mls @ 2.65 mls/hr IV TITR ANAYELI; Protocol Last Titration: 01/20/19 09:02 Dose: 4 mcg/kg/hr, 10.6 mls/hr Documented by: Amiodarone HCl 900 mg/ (Dextrose) 500 mls @ 33.333 mls/hr IV DIRECT ANAYELI; Protocol Last Admin: 01/20/19 02:54 Dose: 0.5 mg/min, 16.667 mls/hr Documented by: Insulin Human Regular 100 (units/ Sodium Chloride) 100 mls @ 1 mls/hr IV TITR ANAYELI; Protocol Last Titration: 01/20/19 12:05 Dose: 0.5 units/hr, 0.5 mls/hr Documented by: Furosemide 100 mg/ Sodium (Chloride) 100 mls @ 5 mls/hr IV TITRATE ANAYELI Last Admin: 01/19/19 17:22 Dose: 2.5 mg/hr, 2.5 mls/hr Documented by: Lidocaine HCl/Dextrose (Xylocaine/D5w 2gm/500ml Drip) 2,000 mg in 500 mls @ 15 mls/hr IV DIRECT ANAYELI; Protocol Last Admin: 01/19/19 14:10 Dose: 1 mg/min, 15 mls/hr Documented by: Norepinephrine 8 mg/ Sodium (Chloride) 250 mls @ 3.75 mls/hr IV TITR ANAYELI; Protocol Last Titration: 01/20/19 12:00 Dose: 12 mcg/min, 22.5 mls/hr Documented by: Lansoprazole (Prevacid Solutab) 30 mg FEEDTUBE QDAY [facility] Last Admin: 01/20/19 10:34 Dose: 30 mg Documented by: Morphine Sulfate (Morphine) 2 mg IV Q4H PRN PRN Reason: Pain, Moderate (4-6) Last Admin: 01/17/19 09:00 Dose: 2 mg Documented by: Multi-Ingred Cream/Lotion/Oil/Oint (Artificial Tears Ophth Oint) 1 applic OU Q4HR PRN PRN Reason: Dry Eye(s) Ondansetron HCl (Zofran) 4 mg IV Q8H PRN PRN Reason: Nausea And Vomiting Last Admin: 01/14/19 22:22 Dose: 4 mg Documented by: Sodium Chloride (Sodium Chloride Flush Syringe 10 Ml) 10 ml IV BID [facility] Last Admin: 01/20/19 10:46 Dose: 10 ml Documented by: Sodium Chloride (Sodium Chloride Flush Syringe 10 Ml) 10 ml IV PRN PRN PRN Reason: LINE FLUSH Objective Vital Signs - 12hr 01/20/19 01/20/19 01/20/19 00:31 00:45 01:00 Temperature Pulse Rate 119 H 113 H 113 H Pulse Rate [ From Monitor] Respiratory 16 17 16 Rate Blood Pressure 158/84 167/83 159/81 O2 Sat by Pulse 94 87 Oximetry 01/20/19 01/20/19 01/20/19 01:15 01:30 01:45 Temperature Pulse Rate 109 H 105 H 104 H Pulse Rate [ From Monitor] Respiratory 15 16 11 L Rate Blood Pressure 184/81 193/79 190/73 O2 Sat by Pulse 91 94 96 Oximetry 01/20/19 01/20/19 01/20/19 02:00 02:15 02:30 Temperature Pulse Rate 109 H 131 H 115 H Pulse Rate [ From Monitor] Respiratory 8 L 15 23 Rate Blood Pressure 184/86 190/73 203/99 O2 Sat by Pulse 96 100 88 Oximetry 01/20/19 01/20/19 01/20/19 02:45 03:00 03:01 Temperature Pulse Rate 108 H 102 H 102 H Pulse Rate [ From Monitor] Respiratory 18 20 17 Rate Blood Pressure 192/93 188/82 188/82 O2 Sat by Pulse 94 96 96 Oximetry 01/20/19 01/20/19 01/20/19 03:15 03:30 03:32 Temperature 100.2 F H 100.2 F H Pulse Rate 117 H 102 H Pulse Rate [ From Monitor] Respiratory 17 15 Rate Blood Pressure 202/82 212/77 O2 Sat by Pulse 93 99 Oximetry 01/20/19 01/20/19 01/20/19 03:45 03:56 04:00 Temperature 100.2 F H Pulse Rate 113 H 98 H 113 H Pulse Rate [ From Monitor] Respiratory 15 16 Rate Blood Pressure 212/77 150/56 O2 Sat by Pulse 100 96 99 Oximetry 01/20/19 01/20/19 01/20/19 04:01 04:15 04:31 Temperature Pulse Rate 116 H 108 H 117 H Pulse Rate [ From Monitor] Respiratory 16 16 17 Rate Blood Pressure 150/56 162/91 193/85 O2 Sat by Pulse 96 99 97 Oximetry 01/20/19 01/20/19 01/20/19 04:45 05:00 05:01 Temperature Pulse Rate 100 H 112 H 114 H Pulse Rate [ From Monitor] Respiratory 16 16 14 Rate Blood Pressure 193/85 145/49 230/208 O2 Sat by Pulse 100 95 98 Oximetry 01/20/19 01/20/19 01/20/19 05:15 05:30 05:45 Temperature Pulse Rate 106 H 105 H 113 H Pulse Rate [ From Monitor] Respiratory 16 15 19 Rate Blood Pressure 186/93 142/69 142/69 O2 Sat by Pulse 99 99 99 Oximetry 01/20/19 01/20/19 01/20/19 06:00 06:15 06:30 Temperature Pulse Rate 100 H 97 H 95 H Pulse Rate [ From Monitor] Respiratory 15 16 15 Rate Blood Pressure 167/81 144/66 150/76 O2 Sat by Pulse 100 100 100 Oximetry 01/20/19 01/20/19 01/20/19 06:45 06:57 07:01 Temperature Pulse Rate 107 H 101 H 100 H Pulse Rate [ From Monitor] Respiratory 16 17 16 Rate Blood Pressure 165/120 139/48 170/64 O2 Sat by Pulse 98 100 100 Oximetry 01/20/19 01/20/19 01/20/19 07:15 07:31 07:42 Temperature Pulse Rate 100 H 104 H 107 H Pulse Rate [ From Monitor] Respiratory 15 19 Rate Blood Pressure 170/64 174/72 174/72 O2 Sat by Pulse 100 100 96 Oximetry 01/20/19 01/20/19 01/20/19 07:45 07:48 08:00 Temperature 98.1 F 98.1 F Pulse Rate 105 H 109 H Pulse Rate [ 115 H From Monitor] Respiratory 16 24 Rate Blood Pressure 174/72 165/70 O2 Sat by Pulse 97 97 Oximetry 01/20/19 01/20/19 01/20/19 08:01 08:15 08:30 Temperature Pulse Rate 112 H 114 H 120 H Pulse Rate [ From Monitor] Respiratory 13 9 L 15 Rate Blood Pressure 165/70 184/98 182/79 O2 Sat by Pulse 95 93 91 Oximetry 01/20/19 01/20/19 01/20/19 08:45 09:00 09:01 Temperature Pulse Rate 120 H 125 H 117 H Pulse Rate [ From Monitor] Respiratory 13 16 20 Rate Blood Pressure 182/79 163/89 191/38 O2 Sat by Pulse 94 96 96 Oximetry 01/20/19 01/20/19 01/20/19 09:15 09:30 09:45 Temperature Pulse Rate 111 H 95 H 92 H Pulse Rate [ From Monitor] Respiratory 16 15 16 Rate Blood Pressure 191/38 157/38 157/38 O2 Sat by Pulse 90 97 98 Oximetry 01/20/19 01/20/19 10:00 11:00 Temperature Pulse Rate 93 H 89 Pulse Rate [ From Monitor] Respiratory 16 20 Rate Blood Pressure O2 Sat by Pulse 99 99 Oximetry Constitutional: other (critically ill on pressors and ventilator) Eyes: non-icteric ENT: oropharynx moist Neck: supple Effort: normal Ascultation: Bilateral: other (coarse BS bilaterally) Cardiovascular: other (tachy, RR; + gallop (? summation); loud systolic murmur throughout) Gastrointestinal: normoactive bowel sounds, soft, non-tender, non-distended Integumentary: normal Extremities: no cyanosis, no edema, pink and warm Neurologic: normal mental status, non-focal exam, pupils equal and round, CN II- XII normal Psychiatric: mood appropriate, affect normal CBC and BMP: 01/20/19 04:00 01/20/19 04:00 ABG, PT/INR, D-dimer: ABG POC ABG pH 7.388 (7.35-7.45) 01/20/19 05:09 POC ABG pCO2 37.1 (35-45) 01/20/19 05:09 POC ABG pO2 93 (80-105) 01/20/19 05:09 POC ABG HCO3 22.3 (22-26 mml/L) 01/20/19 05:09 POC ABG Total CO2 23 (23-27mmol/L) 01/20/19 05:09 POC ABG O2 Sat 97 01/20/19 05:09 PT/INR, D-dimer PT 23.7 Sec. (12.2-14.9) H 01/14/19 18:50 INR 1.97 (0.87-1.13) H 01/14/19 18:50 Abnormal lab findings: Abnormal Labs 01/14/19 01/14/19 01/14/19 18:45 18:50 18:50 WBC RBC Hgb Hct MCV MCHC RDW Lymph % (Auto) [place] % (Auto) [place] # Seg Neutrophils % Seg Neutrophils # PT 23.7 H INR 1.97 H APTT < 20.0 L Activated Clotting Time 252 H Heparin Anti-Xa Level POC ABG pH POC ABG pCO2 POC ABG pO2 Sodium 123 L Potassium 5.8 H Chloride 87.7 L Carbon Dioxide 13 L BUN 27 H Creatinine 1.7 H Glucose 474 H POC Glucose Calcium 8.2 L Phosphorus Magnesium AST 70 H ALT 73 H Alkaline Phosphatase Total Creatine Kinase CK-MB (CK-2) Troponin T 1.780 H* NT-Pro-B Natriuret Pep 8727 H Total Protein 6.0 L Albumin 2.8 L HDL Cholesterol Free T4 Ur Specific [place] Urine WBC (Auto) Crossmatch 01/14/19 01/14/19 01/14/19 18:50 18:50 18:50 WBC 13.9 H RBC 3.26 L Hgb 10.5 L Hct 31.9 L MCV 98 H MCHC RDW 17.0 H Lymph % (Auto) 8.3 L [place] % (Auto) [place] # Seg Neutrophils % 86.6 H Seg Neutrophils # 12.1 H PT INR APTT Activated Clotting Time Heparin Anti-Xa Level POC ABG pH POC ABG pCO2 POC ABG pO2 Sodium Potassium Chloride Carbon Dioxide BUN Creatinine Glucose POC Glucose Calcium Phosphorus Magnesium AST ALT Alkaline Phosphatase Total Creatine Kinase CK-MB (CK-2) Troponin T 1.760 H* NT-Pro-B Natriuret Pep Total Protein Albumin HDL Cholesterol 31 L Free T4 1.67 H Ur Specific [place] Urine WBC (Auto) Crossmatch 01/14/19 01/14/19 01/14/19 21:12 21:42 23:05 WBC RBC Hgb Hct MCV MCHC RDW Lymph % (Auto) [place] % (Auto) [place] # Seg Neutrophils % Seg Neutrophils # PT INR APTT Activated Clotting Time Heparin Anti-Xa Level POC ABG pH POC ABG pCO2 POC ABG pO2 Sodium 130 L D Potassium 5.4 H Chloride 90.9 L Carbon Dioxide 17 L BUN 28 H Creatinine Glucose 504 H* POC Glucose 437 H 372 H Calcium 8.2 L Phosphorus Magnesium AST ALT Alkaline Phosphatase Total Creatine Kinase CK-MB (CK-2) Troponin T NT-Pro-B Natriuret Pep Total Protein Albumin HDL Cholesterol Free T4 Ur Specific [place] Urine WBC (Auto) Crossmatch 01/14/19 01/15/19 01/15/19 23:40 00:07 01:12 WBC RBC Hgb Hct MCV MCHC RDW Lymph % (Auto) [place] % (Auto) [place] # Seg Neutrophils % Seg Neutrophils # PT INR APTT Activated Clotting Time Heparin Anti-Xa Level POC ABG pH POC ABG pCO2 POC ABG pO2 Sodium Potassium Chloride Carbon Dioxide BUN Creatinine Glucose POC Glucose 389 H 384 H 311 H Calcium Phosphorus Magnesium AST ALT Alkaline Phosphatase Total Creatine Kinase CK-MB (CK-2) Troponin T NT-Pro-B Natriuret Pep Total Protein Albumin HDL Cholesterol Free T4 Ur Specific [place] Urine WBC (Auto) Crossmatch 01/15/19 01/15/19 01/15/19 01:20 01:20 02:29 WBC RBC Hgb Hct MCV MCHC RDW Lymph % (Auto) [place] % (Auto) [place] # Seg Neutrophils % Seg Neutrophils # PT INR APTT Activated Clotting Time Heparin Anti-Xa Level 0.99 H POC ABG pH POC ABG pCO2 POC ABG pO2 Sodium 134 L Potassium Chloride Carbon Dioxide 20 L BUN 29 H Creatinine Glucose 299 H POC Glucose 289 H Calcium 7.6 L Phosphorus Magnesium AST ALT Alkaline Phosphatase Total Creatine Kinase CK-MB (CK-2) Troponin T NT-Pro-B Natriuret Pep Total Protein Albumin HDL Cholesterol Free T4 Ur Specific [place] Urine WBC (Auto) Crossmatch 01/15/19 01/15/19 01/15/19 03:10 03:23 03:23 WBC 13.6 H RBC 3.01 L Hgb 9.5 L Hct 29.0 L MCV 96 H MCHC RDW 16.8 H Lymph % (Auto) 9.3 L [place] % (Auto) 10.1 H [place] # 1.4 H Seg Neutrophils % 80.3 H Seg Neutrophils # 10.9 H PT INR APTT Activated Clotting Time Heparin Anti-Xa Level POC ABG pH POC ABG pCO2 POC ABG pO2 Sodium 133 L Potassium Chloride Carbon Dioxide 21 L BUN 30 H Creatinine Glucose 190 H POC Glucose 227 H Calcium 7.4 L Phosphorus Magnesium AST ALT Alkaline Phosphatase Total Creatine Kinase CK-MB (CK-2) Troponin T NT-Pro-B Natriuret Pep Total Protein Albumin HDL Cholesterol Free T4 Ur Specific [place] Urine WBC (Auto) Crossmatch 01/15/19 01/15/19 01/15/19 03:23 04:49 05:11 WBC RBC Hgb Hct MCV MCHC RDW Lymph % (Auto) [place] % (Auto) [place] # Seg Neutrophils % Seg Neutrophils # PT INR APTT Activated Clotting Time Heparin Anti-Xa Level 0.85 H POC ABG pH POC ABG pCO2 POC ABG pO2 Sodium Potassium Chloride Carbon Dioxide BUN Creatinine Glucose POC Glucose 171 H Calcium Phosphorus Magnesium AST ALT Alkaline Phosphatase Total Creatine Kinase CK-MB (CK-2) Troponin T NT-Pro-B Natriuret Pep Total Protein Albumin HDL Cholesterol Free T4 Ur Specific [place] 1.046 H Urine WBC (Auto) 19.0 H Crossmatch 01/15/19 01/15/19 01/15/19 05:50 06:19 07:38 WBC RBC Hgb Hct MCV MCHC RDW Lymph % (Auto) [place] % (Auto) [place] # Seg Neutrophils % Seg Neutrophils # PT INR APTT Activated Clotting Time Heparin Anti-Xa Level POC ABG pH POC ABG pCO2 POC ABG pO2 Sodium 134 L Potassium Chloride 97.6 L Carbon Dioxide 20 L BUN 30 H Creatinine Glucose POC Glucose 118 H 120 H Calcium 7.9 L Phosphorus Magnesium AST ALT Alkaline Phosphatase Total Creatine Kinase CK-MB (CK-2) Troponin T NT-Pro-B Natriuret Pep Total Protein Albumin HDL Cholesterol Free T4 Ur Specific [place] Urine WBC (Auto) Crossmatch 01/15/19 01/15/19 01/15/19 08:08 11:24 14:45 WBC RBC Hgb Hct MCV MCHC RDW Lymph % (Auto) [place] % (Auto) [place] # Seg Neutrophils % Seg Neutrophils # PT INR APTT Activated Clotting Time Heparin Anti-Xa Level POC ABG pH POC ABG pCO2 POC ABG pO2 Sodium 132 L Potassium Chloride Carbon Dioxide BUN 31 H Creatinine Glucose 200 H POC Glucose 110 H 173 H Calcium 8.0 L Phosphorus Magnesium AST ALT Alkaline Phosphatase Total Creatine Kinase 294 H CK-MB (CK-2) 9.3 H Troponin T 3.300 H* D NT-Pro-B Natriuret Pep Total Protein Albumin HDL Cholesterol Free T4 Ur Specific [place] Urine WBC (Auto) Crossmatch 01/15/19 01/15/19 01/15/19 16:19 20:39 21:05 WBC RBC Hgb Hct MCV MCHC RDW Lymph % (Auto) [place] % (Auto) [place] # Seg Neutrophils % Seg Neutrophils # PT INR APTT Activated Clotting Time Heparin Anti-Xa Level 0.71 H POC ABG pH POC ABG pCO2 POC ABG pO2 Sodium Potassium Chloride Carbon Dioxide BUN Creatinine Glucose POC Glucose 170 H 159 H Calcium Phosphorus Magnesium AST ALT Alkaline Phosphatase Total Creatine Kinase CK-MB (CK-2) Troponin T NT-Pro-B Natriuret Pep Total Protein Albumin HDL Cholesterol Free T4 Ur Specific [place] Urine WBC (Auto) Crossmatch 01/16/19 01/16/19 01/16/19 05:00 05:00 11:35 WBC 13.5 H RBC 2.58 L Hgb 8.4 L Hct 24.5 L MCV 95 H MCHC RDW 16.4 H Lymph % (Auto) 11.1 L [place] % (Auto) 8.4 H [place] # 1.1 H Seg Neutrophils % 80.1 H Seg Neutrophils # 10.8 H PT INR APTT Activated Clotting Time Heparin Anti-Xa Level POC ABG pH POC ABG pCO2 POC ABG pO2 Sodium Potassium Chloride Carbon Dioxide BUN 23 H Creatinine Glucose 68 L POC Glucose 237 H Calcium 7.8 L Phosphorus Magnesium AST ALT Alkaline Phosphatase Total Creatine Kinase CK-MB (CK-2) Troponin T NT-Pro-B Natriuret Pep Total Protein Albumin HDL Cholesterol Free T4 Ur Specific [place] Urine WBC (Auto) Crossmatch 01/16/19 01/17/19 01/17/19 16:37 03:34 03:34 WBC 11.5 H RBC 2.33 L Hgb 7.3 L Hct 22.0 L MCV 95 H MCHC RDW 17.0 H Lymph % (Auto) 11.2 L [place] % (Auto) 9.8 H [place] # 1.1 H Seg Neutrophils % 78.1 H Seg Neutrophils # 9.0 H PT INR APTT Activated Clotting Time Heparin Anti-Xa Level POC ABG pH POC ABG pCO2 POC ABG pO2 Sodium Potassium Chloride Carbon Dioxide BUN Creatinine Glucose POC Glucose 224 H Calcium Phosphorus Magnesium AST ALT 77 H Alkaline Phosphatase 159 H Total Creatine Kinase CK-MB (CK-2) Troponin T NT-Pro-B Natriuret Pep Total Protein 5.1 L Albumin 2.4 L HDL Cholesterol Free T4 Ur Specific [place] Urine WBC (Auto) Crossmatch 01/17/19 01/17/19 01/17/19 08:12 11:29 14:42 WBC RBC Hgb Hct MCV MCHC RDW Lymph % (Auto) [place] % (Auto) [place] # Seg Neutrophils % Seg Neutrophils # PT INR APTT Activated Clotting Time Heparin Anti-Xa Level 0.19 L POC ABG pH POC ABG pCO2 POC ABG pO2 Sodium Potassium Chloride Carbon Dioxide BUN Creatinine Glucose POC Glucose 136 H 228 H Calcium Phosphorus Magnesium AST ALT Alkaline Phosphatase Total Creatine Kinase CK-MB (CK-2) Troponin T NT-Pro-B Natriuret Pep Total Protein Albumin HDL Cholesterol Free T4 Ur Specific [place] Urine WBC (Auto) Crossmatch 01/17/19 01/17/19 01/17/19 15:37 17:30 21:45 WBC RBC Hgb Hct MCV MCHC RDW Lymph % (Auto) [place] % (Auto) [place] # Seg Neutrophils % Seg Neutrophils # PT INR APTT Activated Clotting Time Heparin Anti-Xa Level POC ABG pH POC ABG pCO2 POC ABG pO2 Sodium Potassium Chloride Carbon Dioxide BUN Creatinine Glucose POC Glucose 293 H 281 H Calcium Phosphorus Magnesium AST ALT Alkaline Phosphatase Total Creatine Kinase CK-MB (CK-2) Troponin T NT-Pro-B Natriuret Pep Total Protein Albumin HDL Cholesterol Free T4 Ur Specific [place] Urine WBC (Auto) Crossmatch See Detail 01/17/19 01/18/19 01/18/19 23:34 04:10 04:10 WBC 13.2 H RBC 3.12 L Hgb 9.6 L Hct 28.6 L D MCV MCHC RDW 17.6 H Lymph % (Auto) 11.4 L [place] % (Auto) 11.9 H [place] # 1.6 H Seg Neutrophils % 76.0 H Seg Neutrophils # 10.0 H PT INR APTT Activated Clotting Time Heparin Anti-Xa Level > 2.00 H POC ABG pH POC ABG pCO2 POC ABG pO2 Sodium Potassium 3.3 L Chloride Carbon Dioxide BUN Creatinine Glucose 260 H POC Glucose Calcium 8.0 L Phosphorus Magnesium 1.60 L AST ALT Alkaline Phosphatase Total Creatine Kinase CK-MB (CK-2) Troponin T NT-Pro-B Natriuret Pep Total Protein Albumin HDL Cholesterol Free T4 Ur Specific [place] Urine WBC (Auto) Crossmatch 01/18/19 01/18/19 01/18/19 08:43 09:15 11:49 WBC RBC Hgb Hct MCV MCHC RDW Lymph % (Auto) [place] % (Auto) [place] # Seg Neutrophils % Seg Neutrophils # PT INR APTT Activated Clotting Time Heparin Anti-Xa Level < 0.10 L POC ABG pH POC ABG pCO2 POC ABG pO2 Sodium Potassium Chloride Carbon Dioxide BUN Creatinine Glucose POC Glucose 317 H 307 H Calcium Phosphorus Magnesium AST ALT Alkaline Phosphatase Total Creatine Kinase CK-MB (CK-2) Troponin T NT-Pro-B Natriuret Pep Total Protein Albumin HDL Cholesterol Free T4 Ur Specific [place] Urine WBC (Auto) Crossmatch 01/18/19 01/18/19 01/18/19 17:10 17:19 22:22 WBC RBC Hgb Hct MCV MCHC RDW Lymph % (Auto) [place] % (Auto) [place] # Seg Neutrophils % Seg Neutrophils # PT INR APTT Activated Clotting Time Heparin Anti-Xa Level 0.12 L POC ABG pH POC ABG pCO2 POC ABG pO2 Sodium Potassium Chloride Carbon Dioxide BUN Creatinine Glucose POC Glucose 268 H 301 H Calcium Phosphorus Magnesium AST ALT Alkaline Phosphatase Total Creatine Kinase CK-MB (CK-2) Troponin T NT-Pro-B Natriuret Pep Total Protein Albumin HDL Cholesterol Free T4 Ur Specific [place] Urine WBC (Auto) Crossmatch 01/18/19 01/19/19 01/19/19 23:45 05:05 05:05 WBC RBC 2.92 L Hgb 9.2 L Hct 26.3 L MCV MCHC 35 H RDW 17.8 H Lymph % (Auto) [place] % (Auto) 14.9 H [place] # 1.6 H Seg Neutrophils % Seg Neutrophils # PT INR APTT Activated Clotting Time Heparin Anti-Xa Level 0.10 L POC ABG pH POC ABG pCO2 POC ABG pO2 Sodium Potassium 2.6 L* D Chloride 95.1 L Carbon Dioxide BUN 6 L Creatinine Glucose 239 H POC Glucose Calcium 7.4 L Phosphorus Magnesium AST ALT Alkaline Phosphatase Total Creatine Kinase CK-MB (CK-2) Troponin T NT-Pro-B Natriuret Pep Total Protein Albumin HDL Cholesterol Free T4 Ur Specific [place] Urine WBC (Auto) Crossmatch 01/19/19 01/19/19 01/19/19 06:20 06:54 09:05 WBC RBC Hgb Hct MCV MCHC RDW Lymph % (Auto) [place] % (Auto) [place] # Seg Neutrophils % Seg Neutrophils # PT INR APTT Activated Clotting Time Heparin Anti-Xa Level 0.15 L POC ABG pH 7.529 H POC ABG pCO2 33.6 L POC ABG pO2 236 H Sodium Potassium Chloride Carbon Dioxide BUN Creatinine Glucose POC Glucose Calcium Phosphorus 1.50 L Magnesium AST ALT Alkaline Phosphatase Total Creatine Kinase CK-MB (CK-2) Troponin T NT-Pro-B Natriuret Pep Total Protein Albumin HDL Cholesterol Free T4 Ur Specific [place] Urine WBC (Auto) Crossmatch 01/19/19 01/19/19 01/19/19 11:25 15:45 15:45 WBC RBC Hgb Hct MCV MCHC RDW Lymph % (Auto) [place] % (Auto) [place] # Seg Neutrophils % Seg Neutrophils # PT INR APTT Activated Clotting Time Heparin Anti-Xa Level 0.14 L POC ABG pH POC ABG pCO2 POC ABG pO2 Sodium 133 L Potassium 5.3 H D Chloride Carbon Dioxide BUN 8 L Creatinine 0.7 L Glucose 326 H POC Glucose 387 H Calcium 6.9 L Phosphorus Magnesium AST ALT Alkaline Phosphatase Total Creatine Kinase CK-MB (CK-2) Troponin T NT-Pro-B Natriuret Pep Total Protein Albumin HDL Cholesterol Free T4 Ur Specific [place] Urine WBC (Auto) Crossmatch 01/19/19 01/19/19 01/19/19 17:55 19:20 20:00 WBC RBC Hgb Hct MCV MCHC RDW Lymph % (Auto) [place] % (Auto) [place] # Seg Neutrophils % Seg Neutrophils # PT INR APTT Activated Clotting Time Heparin Anti-Xa Level POC ABG pH POC ABG pCO2 POC ABG pO2 Sodium Potassium Chloride Carbon Dioxide BUN Creatinine Glucose POC Glucose 309 H 287 H 251 H Calcium Phosphorus Magnesium AST ALT Alkaline Phosphatase Total Creatine Kinase CK-MB (CK-2) Troponin T NT-Pro-B Natriuret Pep Total Protein Albumin HDL Cholesterol Free T4 Ur Specific [place] Urine WBC (Auto) Crossmatch 01/19/19 01/19/19 01/20/19 22:02 23:57 02:14 WBC RBC Hgb Hct MCV MCHC RDW Lymph % (Auto) [place] % (Auto) [place] # Seg Neutrophils % Seg Neutrophils # PT INR APTT Activated Clotting Time Heparin Anti-Xa Level POC ABG pH POC ABG pCO2 POC ABG pO2 Sodium Potassium Chloride Carbon Dioxide BUN Creatinine Glucose POC Glucose 146 H 120 H 121 H Calcium Phosphorus Magnesium AST ALT Alkaline Phosphatase Total Creatine Kinase CK-MB (CK-2) Troponin T NT-Pro-B Natriuret Pep Total Protein Albumin HDL Cholesterol Free T4 Ur Specific [place] Urine WBC (Auto) Crossmatch 01/20/19 01/20/19 01/20/19 03:12 04:00 04:00 WBC 14.5 H RBC 3.02 L Hgb 9.3 L Hct 27.7 L MCV MCHC RDW 17.9 H Lymph % (Auto) 8.1 L [place] % (Auto) 12.3 H [place] # 1.8 H Seg Neutrophils % 77.5 H Seg Neutrophils # 11.2 H PT INR APTT Activated Clotting Time Heparin Anti-Xa Level POC ABG pH POC ABG pCO2 POC ABG pO2 Sodium 134 L Potassium 5.1 H Chloride Carbon Dioxide BUN 8 L Creatinine Glucose 130 H POC Glucose 133 H Calcium 7.3 L Phosphorus 2.40 L D Magnesium 1.50 L AST ALT Alkaline Phosphatase Total Creatine Kinase CK-MB (CK-2) Troponin T NT-Pro-B Natriuret Pep Total Protein Albumin HDL Cholesterol Free T4 Ur Specific [place] Urine WBC (Auto) Crossmatch 01/20/19 01/20/19 01/20/19 04:00 04:15 05:01 WBC RBC Hgb Hct MCV MCHC RDW Lymph % (Auto) [place] % (Auto) [place] # Seg Neutrophils % Seg Neutrophils # PT INR APTT Activated Clotting Time Heparin Anti-Xa Level 0.17 L POC ABG pH POC ABG pCO2 POC ABG pO2 Sodium Potassium Chloride Carbon Dioxide BUN Creatinine Glucose POC Glucose 136 H 128 H Calcium Phosphorus Magnesium AST ALT Alkaline Phosphatase Total Creatine Kinase CK-MB (CK-2) Troponin T NT-Pro-B Natriuret Pep Total Protein Albumin HDL Cholesterol Free T4 Ur Specific [place] Urine WBC (Auto) Crossmatch 01/20/19 06:16 WBC RBC Hgb Hct MCV MCHC RDW Lymph % (Auto) [place] % (Auto) [place] # Seg Neutrophils % Seg Neutrophils # PT INR APTT Activated Clotting Time Heparin Anti-Xa Level POC ABG pH POC ABG pCO2 POC ABG pO2 Sodium Potassium Chloride Carbon Dioxide BUN Creatinine Glucose POC Glucose 113 H Calcium Phosphorus Magnesium AST ALT Alkaline Phosphatase Total Creatine Kinase CK-MB (CK-2) Troponin T NT-Pro-B Natriuret Pep Total Protein Albumin HDL Cholesterol Free T4 Ur Specific [place] Urine WBC (Auto) Crossmatch Chest x-ray: report reviewed, image reviewed (worsening edema; ET tube okay)
[2019-01-20] MEDS: fentaNYL DRIP Premix 2,000 MCG/100 ML BAG IV SCH ×2 (12:52→21:37)
--- NOTE | 2019-01-20 13:48 | Progress Note ---
Assessment and Plan Acute STEMI s/p PCI to LAD with REGINA Residual RCA stenosis will be staged for PCI in the near future on plavix and aspirin Ischemic cardiomyopathy, LVEF 15-20% Cardiogenic shock on IV levophed and IV dobutamine Ventricular fibrillation in the setting of profound hypokalemia on IV amodarone Respiratory failure with evidence of pulmonary edema on CXR patient was re-inbtubated Anemia s/p PRBC transfusion Subjective Date of service: 01/20/19 Principal diagnosis: Acute respiratory failure Interval history: No events overnight. Morning labs revealed a magnesium level of 1.5. IABP setting changed to 2:1. Objective Vital Signs Temp Pulse Pulse Resp BP Pulse Ox 01/20/19 12:15 97 H 16 155/98 98 01/20/19 12:01 102 H 16 103/45 97 01/20/19 12:00 99.3 F 113 H 93/48 92 01/20/19 11:45 121 H 17 148/60 92 01/20/19 11:30 102 H 16 148/60 94 01/20/19 11:15 112 H 19 140/61 95 01/20/19 11:01 91 H 16 122/62 99 01/20/19 11:00 89 20 99 01/20/19 10:45 90 16 129/72 99 01/20/19 10:31 91 H 19 151/58 99 01/20/19 10:15 91 H 18 151/58 99 01/20/19 10:00 92 H 16 147/56 98 01/20/19 09:45 92 H 16 157/38 98 01/20/19 09:30 95 H 15 157/38 97 01/20/19 09:15 111 H 16 191/38 90 01/20/19 09:01 117 H 20 191/38 96 01/20/19 09:00 125 H 16 163/89 96 01/20/19 08:45 120 H 13 182/79 94 01/20/19 08:30 120 H 15 182/79 91 01/20/19 08:15 114 H 9 L 184/98 93 01/20/19 08:01 112 H 13 165/70 95 01/20/19 08:00 98.1 F 109 H 115 H 24 165/70 97 01/20/19 07:48 98.1 F 01/20/19 07:45 105 H 16 174/72 97 01/20/19 07:42 107 H 174/72 96 01/20/19 07:31 104 H 19 174/72 100 01/20/19 07:15 100 H 15 170/64 100 01/20/19 07:01 100 H 16 170/64 100 01/20/19 06:57 101 H 17 139/48 100 01/20/19 06:45 107 H 16 165/120 98 01/20/19 06:30 95 H 15 150/76 100 01/20/19 06:15 97 H 16 144/66 100 01/20/19 06:00 100 H 15 167/81 100 01/20/19 05:45 113 H 19 142/69 99 01/20/19 05:30 105 H 15 142/69 99 01/20/19 05:15 106 H 16 186/93 99 01/20/19 05:01 114 H 14 230/208 98 01/20/19 05:00 112 H 16 145/49 95 01/20/19 04:45 100 H 16 193/85 100 01/20/19 04:31 117 H 17 193/85 97 01/20/19 04:15 108 H 16 162/91 99 01/20/19 04:01 116 H 16 150/56 96 01/20/19 04:00 100.2 F H 113 H 16 150/56 99 01/20/19 03:56 98 H 96 01/20/19 03:45 113 H 15 212/77 100 01/20/19 03:32 100.2 F H 01/20/19 03:30 100.2 F H 102 H 15 212/77 99 01/20/19 03:15 117 H 17 202/82 93 01/20/19 03:01 102 H 17 188/82 96 01/20/19 03:00 102 H 20 188/82 96 01/20/19 02:45 108 H 18 192/93 94 01/20/19 02:30 115 H 23 203/99 88 01/20/19 02:15 131 H 15 190/73 100 01/20/19 02:00 109 H 8 L 184/86 96 01/20/19 01:45 104 H 11 L 190/73 96 01/20/19 01:30 105 H 16 193/79 94 01/20/19 01:15 109 H 15 184/81 91 03/21/19 01:00 113 H 16 159/81 87 01/20/19 00:45 113 H 17 167/83 94 01/20/19 00:31 119 H 16 158/84 01/20/19 00:15 114 H 14 159/68 01/20/19 00:01 113 H 16 163/82 90 01/20/19 00:00 99.6 F 98 H 21 162/83 96 01/19/19 23:46 114 H 16 159/68 87 01/19/19 23:45 114 H 16 167/86 87 01/19/19 23:43 115 H 14 159/68 85 01/19/19 23:38 99.6 F 01/19/19 23:31 122 H 12 178/77 90 01/19/19 23:15 115 H 22 178/80 88 01/19/19 23:00 112 H 17 167/86 92 01/19/19 22:45 112 H 16 178/80 89 01/19/19 22:31 111 H 13 186/86 91 01/19/19 22:15 116 H 15 152/74 94 01/19/19 22:00 113 H 16 142/68 88 01/19/19 21:45 122 H 19 152/74 96 01/19/19 21:30 109 H 16 152/74 94 01/19/19 21:15 114 H 12 194/86 94 01/19/19 21:00 118 H 13 118/67 92 01/19/19 20:45 107 H 15 194/86 93 01/19/19 20:31 108 H 15 194/86 92 01/19/19 20:15 98 H 16 147/53 93 01/19/19 20:00 98.8 F 102 H 16 156/114 95 01/19/19 19:45 102 H 16 167/73 95 01/19/19 19:30 100 H 16 179/75 96 01/19/19 19:15 104 H 15 149/71 96 01/19/19 19:10 99 H 154/72 97 01/19/19 19:00 102 H 16 154/72 96 01/19/19 18:00 101 H 16 147/72 92 01/19/19 17:45 96 H 15 147/70 95 01/19/19 17:31 93 H 16 179/77 97 01/19/19 17:15 105 H 18 133/62 97 01/19/19 17:00 95 H 16 136/61 94 01/19/19 16:45 100 H 16 149/74 96 01/19/19 16:30 96 H 16 149/74 99 01/19/19 16:15 99 H 15 135/70 99 01/19/19 16:00 98.4 F 96 H 16 148/73 99 01/19/19 15:54 96 H 148/76 99 01/19/19 15:45 99 H 16 148/76 99 01/19/19 15:30 99 H 16 157/77 98 01/19/19 15:15 101 H 16 156/77 97 01/19/19 15:00 105 H 16 153/77 96 01/19/19 14:45 110 H 16 165/85 93 01/19/19 14:30 115 H 19 135/56 93 01/19/19 14:15 121 H 17 188/126 100 01/19/19 14:01 94 H 16 175/68 100 01/19/19 14:00 94 H 16 177/68 100 - Physical Examination General: Other (intubated on the vent) Cardiac: Positive: Reg Rate and Rhythm - Labs and Meds CBC 01/20/19 Range/Units 04:00 WBC 14.5 H (4.5-11.0) K/mm3 RBC 3.02 L (3.65-5.03) M/mm3 Hgb 9.3 L (11.8-15.2) gm/dl Hct 27.7 L (35.5-45.6) % Plt Count 219 (140-440) K/mm3 Lymph # 1.2 (1.2-5.4) K/mm3 [place] # 1.8 H (0.0-0.8) K/mm3 Eos # 0.2 (0.0-0.4) K/mm3 Baso # 0.1 (0.0-0.1) K/mm3 Comprehensive Metabolic Panel 01/19/19 01/20/19 Range/Units 15:45 04:00 Sodium 133 L 134 L (137-145) mmol/L Potassium 5.3 H D 5.1 H (3.6-5.0) mmol/L Chloride 100.0 98.0 (98-107) mmol/L Carbon Dioxide 23 23 (22-30) mmol/L BUN 8 L 8 L (9-20) mg/dL Creatinine 0.7 L 0.8 (0.8-1.5) mg/dL Glucose 326 H 130 H (75-100) mg/dL Calcium 6.9 L 7.3 L (8.4-10.2) mg/dL
[2019-01-20] MEDS ORDERED: SODIUM BICARBONATE FEEDTUBE PRN (14:46)
[2019-01-20] MEDS ORDERED: SIMPLE SYRUP FEEDTUBE PRN ×2 (14:46)
[2019-01-20] MEDS ORDERED: PANCREAZE DR 10,500 UNIT FEEDTUBE PRN (14:46)
--- NOTE | 2019-01-20 14:49 | Progress Note ---
Assessment and Plan Assessment and plan: V. fib arrest. Continue IV amiodarone. Hypokalemia. Potassium is being repleted aggressively. Hold IV Lasix until potassium > 4. Acute hypoxemic respiratory failure. Patient intubated on the evening of 01/18/19. Etiology secondary to pulmonary edema/systolic heart failure. Continue mechanical ventilation per pulmonary. Acute STEMI -status post cardiac cath with primary angioplasty and stenting of his subacute occlusion of the LAD at its ostium. Patient with residual 80% RCA stenosis which will be stage IV PCI in the future. -On heparin drip, aspirin, plavix and statin -Cardiology following Cardiogenic shock -Patient currently on IV Levophed and dobutamine. -Currently on intra-aortic balloon pump support. -Cardiology following Ischemic cardiomyopathy. LVEF 15-20%. New systolic heart failure with acute exacerbation -IV Lasix, cont BB, ACEI and aldactone. Sepsis secondary to Bilateral pneumonia versus UTI -Patient is on IV ceftriaxone and Azithro -blood culture neg so far DKA -resolved -cont SSI and Lantus and adjust as needed Hyponatremia, resolved Dyslipidemia -On statin Acute on chronic anemia -We will monitor H&H and transfuse as needed Disposition -Continue CCU care. Patient remains critically ill The high probability of a clinically significant, sudden or life threatening deterioration of the [cardiac, pulmonary and hemodynamic] system(s) required my full and direct attention, intervention and personal management. The aggregate critical care time was [32] minutes. This time is in addition to time spent performing reported procedures but includes the following: [x] Data Review and interpretation [x] Patient assessment and monitoring of vital signs [x] Documentation [x] Medication orders and management History Interval history: Patient remains intubated on mechanical ventilation. Hospitalist Physical - Constitutional Vitals: Temp Pulse Resp BP Pulse Ox 99.3 F 102 H 16 155/98 96 01/20/19 12:00 01/20/19 13:00 01/20/19 13:00 01/20/19 12:15 01/20/19 13:00 General appearance: Present: no acute distress, other (intubated on mechanical ventilation) - EENT Eyes: Present: PERRL, EOM intact ENT: hearing intact, clear oral mucosa, dentition normal - Neck Neck: Present: supple, normal ROM - Respiratory Respiratory effort: normal Respiratory: bilateral: CTA - Cardiovascular Rhythm: regular Heart Sounds: Present: S1 & S2. Absent: gallop, rub - Extremities Extremities: no ischemia, No edema, Full ROM - Abdominal General gastrointestinal: soft, non-tender, non-distended, normal bowel sounds - Integumentary Integumentary: Present: clear, warm, dry - Neurologic Neurologic: CNII-XII intact, moves all extremities Results - Labs CBC & Chem 7: 01/20/19 04:00 01/20/19 04:00 Labs: Laboratory Last Values WBC 14.5 K/mm3 (4.5-11.0) H 01/20/19 04:00 RBC 3.02 M/mm3 (3.65-5.03) L 01/20/19 04:00 Hgb 9.3 gm/dl (11.8-15.2) L 01/20/19 04:00 Hct 27.7 % (35.5-45.6) L 01/20/19 04:00 MCV 92 fl (84-94) 01/20/19 04:00 MCH 31 pg (28-32) 01/20/19 04:00 MCHC 34 % (32-34) 01/20/19 04:00 RDW 17.9 % (13.2-15.2) H 01/20/19 04:00 Plt Count 219 K/mm3 (140-440) 01/20/19 04:00 Lymph % (Auto) 8.1 % (13.4-35.0) L 01/20/19 04:00 [place] % (Auto) 12.3 % (0.0-7.3) H 01/20/19 04:00 Eos % (Auto) 1.6 % (0.0-4.3) 01/20/19 04:00 Baso % (Auto) 0.5 % (0.0-1.8) 01/20/19 04:00 Lymph # 1.2 K/mm3 (1.2-5.4) 01/20/19 04:00 [place] # 1.8 K/mm3 (0.0-0.8) H 01/20/19 04:00 Eos # 0.2 K/mm3 (0.0-0.4) 01/20/19 04:00 Baso # 0.1 K/mm3 (0.0-0.1) 01/20/19 04:00 Seg Neutrophils % 77.5 % (40.0-70.0) H 01/20/19 04:00 Seg Neutrophils # 11.2 K/mm3 (1.8-7.7) H 01/20/19 04:00 PT 23.7 Sec. (12.2-14.9) H 01/14/19 18:50 INR 1.97 (0.87-1.13) H 01/14/19 18:50 APTT < 20.0 Sec. (24.2-36.6) L 01/14/19 18:50 Activated Clotting Time 252 (74-137) H 01/14/19 18:45 Heparin Anti-Xa Level 0.17 U.I./ml (0.3-0.7) L 01/20/19 04:00 POC ABG pH 7.388 (7.35-7.45) 01/20/19 05:09 POC ABG pCO2 37.1 (35-45) 01/20/19 05:09 POC ABG pO2 93 (80-105) 01/20/19 05:09 POC ABG HCO3 22.3 (22-26 mml/L) 01/20/19 05:09 POC ABG Total CO2 23 (23-27mmol/L) 01/20/19 05:09 POC ABG O2 Sat 97 01/20/19 05:09 POC ABG Base Excess -3 ((-2) - (+3)mmol/L) 01/20/19 05:09 FiO2 100 % 01/20/19 05:09 Sodium 134 mmol/L (137-145) L 01/20/19 04:00 Potassium 5.1 mmol/L (3.6-5.0) H 01/20/19 04:00 Chloride 98.0 mmol/L (98-107) 01/20/19 04:00 Carbon Dioxide 23 mmol/L (22-30) 01/20/19 04:00 Anion Gap 18 mmol/L 01/20/19 04:00 BUN 8 mg/dL (9-20) L 01/20/19 04:00 Creatinine 0.8 mg/dL (0.8-1.5) 01/20/19 04:00 Estimated GFR > 60 ml/min 01/20/19 04:00 BUN/Creatinine Ratio 10 % 01/20/19 04:00 Glucose 130 mg/dL (75-100) H 01/20/19 04:00 POC Glucose 125 (70-105) H 01/20/19 12:08 Calcium 7.3 mg/dL (8.4-10.2) L 01/20/19 04:00 Phosphorus 2.40 mg/dL (2.5-4.5) L D 01/20/19 04:00 Magnesium 1.50 mg/dL (1.7-2.3) L 01/20/19 04:00 Total Bilirubin 0.20 mg/dL (0.1-1.2) 01/17/19 03:34 Direct Bilirubin < 0.2 mg/dL (0-0.2) 01/17/19 03:34 Indirect Bilirubin 0.0 mg/dL 01/17/19 03:34 AST 32 units/L (5-40) 01/17/19 03:34 ALT 77 units/L (7-56) H 01/17/19 03:34 Alkaline Phosphatase 159 units/L (35-129) H 01/17/19 03:34 Total Creatine Kinase 294 units/L (55-170) H 01/15/19 14:45 CK-MB (CK-2) 9.3 ng/mL (0.0-4.0) H 01/15/19 14:45 CK-MB (CK-2) Rel Index 3.1 (0-4) 01/15/19 14:45 Troponin T 3.300 ng/mL (0.00-0.029) H* D 01/15/19 14:45 NT-Pro-B Natriuret Pep 8727 pg/mL (0-900) H 01/14/19 18:50 Total Protein 5.1 g/dL (6.3-8.2) L 01/17/19 03:34 Albumin 2.4 g/dL (3.9-5) L 01/17/19 03:34 Albumin/Globulin Ratio 0.9 % 01/17/19 03:34 Triglycerides 106 mg/dL (2-149) 01/14/19 18:50 Cholesterol 139 mg/dL (50-199) 01/14/19 18:50 LDL Cholesterol Direct 103 mg/dL (50-130) 01/14/19 18:50 HDL Cholesterol 31 mg/dL (40-59) L 01/14/19 18:50 Cholesterol/HDL Ratio 4.48 % 01/14/19 18:50 TSH 3.710 mlU/mL (0.270-4.200) 01/14/19 18:50 Free T4 1.67 ng/dL (0.76-1.46) H 01/14/19 18:50 Urine Color Yellow (Yellow) 01/15/19 05:11 Urine Turbidity Slightly-cloudy (Clear) 01/15/19 05:11 Urine pH 5.0 (5.0-7.0) 01/15/19 05:11 Ur Specific [place] 1.046 (1.003-1.030) H 01/15/19 05:11 Urine Protein <15 mg/dl mg/dL (Negative) 01/15/19 05:11 Urine Glucose (UA) 50 mg/dL (Negative) 01/15/19 05:11 Urine Ketones Neg mg/dL (Negative) 01/15/19 05:11 Urine Blood Mod (Negative) 01/15/19 05:11 Urine Nitrite Neg (Negative) 01/15/19 05:11 Urine Bilirubin Neg (Negative) 01/15/19 05:11 Urine Urobilinogen < 2.0 mg/dL (<2.0) 01/15/19 05:11 Ur Leukocyte Esterase Neg (Negative) 01/15/19 05:11 Urine WBC (Auto) 19.0 /HPF (0.0-6.0) H 01/15/19 05:11 Urine RBC (Auto) 6.0 /HPF (0.0-6.0) 01/15/19 05:11 U Epithel Cells (Auto) < 1.0 /HPF (0-13.0) 01/15/19 05:11 Urine Mucus Few /HPF 01/15/19 05:11 Blood Type O POSITIVE 01/17/19 17:30 Antibody Screen Negative 01/17/19 17:30 Crossmatch See Detail 01/17/19 17:30 Active Medications - Current Medications Current Medications: Generic Name Dose Route Start Last Admin Trade Name Freq PRN Reason Stop Dose Admin Albuterol 2.5 mg 01/14/19 18:57 Proventil IH Q4HRT PRN Shortness Of Breath Aspirin 162 mg 01/15/19 10:00 01/20/19 10:34 Baby Aspirin PO 162 mg QDAY ANAYELI Administration Atorvastatin Calcium 40 mg 01/14/19 22:00 01/19/19 21:49 Lipitor PO 40 mg QHS ANAYELI Administration Benzocaine/Menthol 1 each 01/16/19 16:03 01/18/19 13:29 Cepacol X Strength MM 1 each Q2HR PRN Administration Sore Throat Clopidogrel Bisulfate 75 mg 01/15/19 10:00 01/20/19 10:34 Plavix PO 75 mg QDAY ANAYELI Administration Dextrose 50 ml 01/15/19 07:10 D50w (25gm) Syringe IV PRN PRN Hypoglycemia Docusate Sodium 100 mg 01/18/19 12:00 01/20/19 10:35 Colace FEEDTUBE 100 mg DAILY ANAYELI Administration Guaifenesin 10 ml 01/14/19 21:23 01/16/19 17:40 Guaifenesin Dm Syrup PO 10 ml Q4H PRN Administration Cough Hydrophilic Ointment 1 applic 01/18/19 21:26 Vaseline Lip Therapy TP Q2HR PRN Dry Lips Heparin Sodium (Porcine) 1,000 501 mls @ 0 mls/hr 01/17/19 09:00 01/17/19 21:20 unit/ Sodium Chloride IV 15 mls/hr DIRECT ANAYELI Administration Dobutamine HCl/Dextrose 500 mg in 250 mls @ 4.968 mls/hr 01/17/19 12:00 01/20/19 05:31 Dobutrex Drip 500mg/D5w 250ml IV 3 mcg/kg/min TITR ANAYELI 4.968 mls/hr Administration 3 MCG/KG/MIN Heparin Sodium/Sodium Chloride 25,000 unit in 500 mls @ 16 mls/hr 01/17/19 12:00 01/20/19 07:16 Heparin/ 0.45% Nacl-25,000 Unit/500 Ml IV 600 units/hr TITR ANAYELI 12 mls/hr Titration Protocol 800 UNITS/HR Propofol 1,000 mg in 100 mls @ 1.59 mls/hr 01/18/19 22:00 01/19/19 16:59 Diprivan 10 Mg/Ml IV 0 mcg/kg/min TITR ANAYELI 0 mls/hr Titration Protocol 5 MCG/KG/MIN Fentanyl Citrate 2,000 mcg in 100 mls @ 2.65 mls/hr 01/19/19 09:00 01/20/19 12:52 Fentanyl Drip Premix IV 4 mcg/kg/hr TITR ANAYELI 10.6 mls/hr Administration Protocol 1 MCG/KG/HR Amiodarone HCl 900 mg/ 500 mls @ 33.333 mls/hr 01/19/19 10:00 01/20/19 02:54 Dextrose IV 0.5 mg/min DIRECT ANAYELI 16.667 mls/hr Administration Protocol 1 MG/MIN Insulin Human Regular 100 100 mls @ 1 mls/hr 01/19/19 13:00 01/20/19 14:12 units/ Sodium Chloride IV 0 units/hr TITR ANAYELI 0 mls/hr Titration Protocol 1 UNITS/HR Furosemide 100 mg/ Sodium 100 mls @ 5 mls/hr 01/19/19 13:00 01/19/19 17:22 Chloride IV 2.5 mg/hr TITRATE ANAYELI 2.5 mls/hr Administration 5 MG/HR Lidocaine HCl/Dextrose 2,000 mg in 500 mls @ 15 mls/hr 01/19/19 15:00 01/19/19 14:10 Xylocaine/D5w 2gm/500ml Drip IV 1 mg/min DIRECT ANAYELI 15 mls/hr Administration Protocol 1 MG/MIN Norepinephrine 8 mg/ Sodium 250 mls @ 3.75 mls/hr 01/19/19 19:00 01/20/19 13:20 Chloride IV 10 mcg/min TITR ANAYELI 18.75 mls/hr Titration Protocol 2 MCG/MIN Lansoprazole 30 mg 01/19/19 10:00 01/20/19 10:34 Prevacid Solutab FEEDTUBE 30 mg QDAY ANAYELI Administration Morphine Sulfate 2 mg 01/14/19 18:57 01/17/19 09:00 Morphine IV 2 mg Q4H PRN Administration Pain, Moderate (4-6) Multi-Ingred Cream/Lotion/Oil/Oint 1 applic 01/18/19 21:26 Artificial Tears Ophth Oint OU Q4HR PRN Dry Eye(s) Ondansetron HCl 4 mg 01/14/19 18:57 01/14/19 22:22 Zofran IV 4 mg Q8H PRN Administration Nausea And Vomiting Sodium Chloride 10 ml 01/14/19 22:00 01/20/19 10:46 Sodium Chloride Flush Syringe 10 Ml IV 10 ml BID ANAYELI Administration Sodium Chloride 10 ml 01/14/19 18:57 Sodium Chloride Flush Syringe 10 Ml IV PRN PRN LINE FLUSH Nutrition/Malnutrition Assess - Dietary Evaluation Nutrition/Malnutrition Findings: Nutrition Notes Start: 01/19/19 15:47 Freq: Status: Active Protocol: Document 01/19/19 15:47 RD (Rec: 01/19/19 15:53 RD [email or web address]) Co-Sign 01/19/19 15:47 LP Nutrition Notes Need for Assessment generated from: MD Order Initial or Follow up Assessment Current Diagnosis Diabetes,Heart Failure, Respiratory Failure Current Diet Cl Liquid Diet Labs/Tests K 2.6 BG 239 Pertinent Medications Lasix, Propofol Height 5 ft 4 in Weight 53 kg [place] Body Weight (kg) 59.09 BMI 20.0 Subjective/Other Information Per RN, pt was refusing NGT. Pt is now on mech vent. Burn Absent Trauma Absent #1 Nutrition Diagnosis Inadequate oral intake Etiology Mech vent As Evidenced by Signs and Symptoms Pt is NPO Is patient on ventilator? Yes Is Patient Ambulatory and/or Out of Bed No REE-([place] Jeor-confined to bed) 3033.002 Calculation Used for Recommendations [place] Je[place] Additional Notes Protein needs: (1.2-2g/kg) 64- 106g/day Fluid needs: 1mL/kcal Nutrition Intervention Change Diet Order: TF or Extubation Goal #1 TF consult ot extuabtion Anticipated Discharge Needs: Unable to determine at this time Follow-Up By: 01/21/19 Additional Comments f/u: TF consult or extubation
[2019-01-20] MEDS: VERSED IV PRN (16:03)
[2019-01-20] MEDS: LASIX 100 MG in NACL 0.9% 90 ML IV SCH (21:49)
[2019-01-20] MEDS: XYLOCAINE/D5W 2GM/500ML DRIP 2,000 MG/500 ML BAG IV SCH (21:50)
[2019-01-21] MEDS: CORDARONE 900 MG in D5W 482 ML IV SCH (04:50)
[2019-01-21 04:53] LABS: Basophils # (Auto) 0.1 K/mm3 (0.0-0.1); Basophils % (Auto) 0.4 % (0.0-1.8); Eosinophils # (Auto) 0.2 K/mm3 (0.0-0.4); Eosinophils % (Auto) 1.3 % (0.0-4.3); Hematocrit 26.1 % (35.5-45.6); Hemoglobin 8.7 gm/dl (11.8-15.2); Lymphocytes # (Auto) 1.5 K/mm3 (1.2-5.4); Lymphocytes % (Auto) 9.3 % (13.4-35.0); Mean Corpuscular HGB Conc 33 % (32-34); Mean Corpuscular Volume 92 fl (84-94); Monocytes # (Auto) 1.9 K/mm3 (0.0-0.8); Monocytes % (Auto) 11.9 % (0.0-7.3); Platelet Count 204 K/mm3 (140-440); Red Blood Count 2.85 M/mm3 (3.65-5.03); Red Cell Distribution Width 17.1 % (13.2-15.2)
[2019-01-21 05:13] LABS: Alanine Aminotransferase 76 units/L (7-56); Albumin 2.4 g/dL (3.9-5); BUN/Creatinine Ratio 11; Blood Urea Nitrogen 10 mg/dL (9-20); Calcium 7.5 mg/dL (8.4-10.2); Hemolysis Index 0
[2019-01-21] MEDS: LEVOPHED 8 MG in NACL 0.9% 250ML 242 ML IV SCH (05:13)
[2019-01-21] MEDS: fentaNYL DRIP Premix 2,000 MCG/100 ML BAG IV SCH (05:59)
[2019-01-21] MEDS: SODIUM CHLORIDE FLUSH SYRINGE 10 ML IV SCH ×2 (07:30→09:30)
[2019-01-21] MEDS: VERSED IV PRN ×2 (07:55→10:15)
[2019-01-21] MEDS ORDERED: MAGNESIUM SULFATE 4GM/100ML 4 GM/100 ML BAG IV ONE (09:00)
[2019-01-21] MEDS: PLAVIX PO SCH (09:29)
[2019-01-21] MEDS: PREVACID SOLUTAB FEEDTUBE SCH (09:29)
[2019-01-21] MEDS: COLACE FEEDTUBE SCH (09:29)
[2019-01-21] MEDS: BABY ASPIRIN PO SCH (09:29)
[2019-01-21] MEDS: DIPRIVAN 10 MG/ML 1,000 MG/100 ML BOTTLE IV SCH (10:08)
[2019-01-21] MEDS: LASIX 100 MG in NACL 0.9% 90 ML IV SCH (10:41)
[2019-01-21] MEDS: HumuLIN R 100 UNITS in NACL 0.9% 99 ML IV SCH (10:41)
[2019-01-21 10:53] VITALS: BP 147/75
--- NOTE | 2019-01-21 11:27 | XRay Report ---
Comparison of the current study with the prior examination of 01/20/19 shows no appreciable interval change.
--- NOTE | 2019-01-21 11:27 | XRay Report ---
Comparison of the current study with the prior examination of 01/19/19 shows no appreciable interval change.
--- NOTE | 2019-01-21 11:43 | Progress Note ---
Assessment and Plan Labs/CXR/ABG reviewed Imp: 1. Acute STEMI s/p PCI 2. CAD 3. Ischemic cardiomyopathy 4. Cardiogenic shock 5. Acute systolic CHF with pulm edema 6. Acute respiratory failure, hypoxia 7. S/p Vfib arrest 8. Hypokalamia/hypomagnesemia Rec: 1. Amio/Lidocaine/Lasix/Heparin/Dobutamine per cardiology; mag repleted again today, keep > 2.0 2. On heparin drip/Levophed per cardiology; IABP to stay in today; for transfer to [place] 3. F/u CXR periodically 4. Rest him on the ventilator pending improvement in underlying shock/CHF; Fentanyl drip; cont. PEEP 8 and FiO2 weaning 5. Doubt pneumonia; initial cultures were negative; completed 5 days of empiric ABX w/ Rocephin/Azithromycine; repeated sputum, blood, urine cultures due to low-grade temp and rising WBC count 6. Monitor H/H 7. Insulin drip 8. Placed PICC for additional access 9. Placed OG for Plavix, PO meds, TFs 10. Prognosis guarded to poor; plan of care reviewed with family today at [facility]; I did write them a letter noting the severity of patient's condition/illness and his current state of incapacitation CCT 31 minutes Subjective Date of service: 01/21/19 Principal diagnosis: Acute respiratory failure Interval history: Stable overnight on Vent respiratory-jason. On FiO2 of 40% and PEEP of 8. He is sedated but arouses and follows commands. On multiple drips and IABP. Active Medications Albuterol (Proventil) 2.5 mg IH Q4HRT PRN PRN Reason: Shortness Of Breath Lipase/Protease/Amylase (Pancreaze Dr 10,500 Unit) 1 each FEEDTUBE PRN PRN PRN Reason: For Clogged Feeding Tube Aspirin (Baby Aspirin) 162 mg PO QDAY [facility] Last Admin: 01/21/19 09:29 Dose: Not Given Documented by: Atorvastatin Calcium (Lipitor) 40 mg PO QHS [facility] Last Admin: 01/20/19 21:42 Dose: 40 mg Documented by: Benzocaine/Menthol (Cepacol X Strength) 1 each MM Q2HR PRN PRN Reason: Sore Throat Last Admin: 01/18/19 13:29 Dose: 1 each Documented by: Clopidogrel Bisulfate (Plavix) 75 mg PO QDAY [facility] Last Admin: 01/21/19 09:29 Dose: Not Given Documented by: Dextrose (D50w (25gm) Syringe) 50 ml IV PRN PRN PRN Reason: Hypoglycemia Docusate Sodium (Colace) 100 mg FEEDTUBE DAILY [facility] Last Admin: 01/21/19 09:29 Dose: Not Given Documented by: Guaifenesin (Guaifenesin Dm Syrup) 10 ml PO Q4H PRN PRN Reason: Cough Last Admin: 01/16/19 17:40 Dose: 10 ml Documented by: Hydrophilic Ointment (Vaseline Lip Therapy) 1 applic TP Q2HR PRN PRN Reason: Dry Lips Heparin Sodium (Porcine) 1,000 (unit/ Sodium Chloride) 501 mls @ 0 mls/hr IV DIRECT [facility] Last Admin: 01/17/19 21:20 Dose: 15 mls/hr Documented by: Dobutamine HCl/Dextrose (Dobutrex Drip 500mg/D5w 250ml) 500 mg in 250 mls @ 4.968 mls/hr IV TITR [facility] Last Admin: 01/20/19 05:31 Dose: 3 mcg/kg/min, 4.968 mls/hr Documented by: Heparin Sodium/Sodium Chloride (Heparin/ 0.45% Nacl-25,000 Unit/500 Ml) 25,000 unit in 500 mls @ 16 mls/hr IV TITR [facility]; Protocol Last Titration: 01/21/19 06:50 Dose: Infused Documented by: Propofol (Diprivan 10 Mg/Ml) 1,000 mg in 100 mls @ 1.59 mls/hr IV TITR [facility]; Protocol Last Admin: 01/21/19 10:08 Dose: 10 mcg/kg/min, 3.18 mls/hr Documented by: Fentanyl Citrate (Fentanyl Drip Premix) 2,000 mcg in 100 mls @ 2.65 mls/hr IV TITR [facility]; Protocol Last Admin: 01/21/19 05:59 Dose: 4 mcg/kg/hr, 10.6 mls/hr Documented by: Amiodarone HCl 900 mg/ (Dextrose) 500 mls @ 33.333 mls/hr IV DIRECT [facility]I; Protocol Last Admin: 01/21/19 04:50 Dose: 0.5 mg/min, 16.667 mls/hr Documented by: Insulin Human Regular 100 (units/ Sodium Chloride) 100 mls @ 1 mls/hr IV TITR [facility]; Protocol Last Admin: 01/21/19 10:41 Dose: 1 units/hr, 1 mls/hr Documented by: Furosemide 100 mg/ Sodium (Chloride) 100 mls @ 5 mls/hr IV TITRATE [facility] Last Admin: 01/21/19 10:41 Dose: 2.5 mg/hr, 2.5 mls/hr Documented by: Lidocaine HCl/Dextrose (Xylocaine/D5w 2gm/500ml Drip) 2,000 mg in 500 mls @ 15 mls/hr IV DIRECT A[facility]YELI; Protocol Last Titration: 01/21/19 08:00 Dose: 0 mg/min, 0 mls/hr Documented by: Norepinephrine 8 mg/ Sodium (Chloride) 250 mls @ 3.75 mls/hr IV TITR [facility]; Protocol Last Titration: 01/21/19 09:36 Dose: 2 mcg/min, 3.75 mls/hr Documented by: Magnesium Sulfate (Magnesium Sulfate 4gm/100ml) 4 gm in 100 mls @ 25 mls/hr IV ONCE ONE Stop: 01/21/19 12:59 Last Admin: 01/21/19 09:26 Dose: 25 mls/hr Documented by: Lansoprazole (Prevacid Solutab) 30 mg FEEDTUBE QDAY [facility] Last Admin: 01/21/19 09:29 Dose: Not Given Documented by: Midazolam HCl (Versed) 2 mg IV Q2H PRN PRN Reason: Agitation Last Admin: 01/21/19 10:15 Dose: 2 mg Documented by: Morphine Sulfate (Morphine) 2 mg IV Q4H PRN PRN Reason: Pain, Moderate (4-6) Last Admin: 01/17/19 09:00 Dose: 2 mg Documented by: Multi-Ingred Cream/Lotion/Oil/Oint (Artificial Tears Ophth Oint) 1 applic OU Q4HR PRN PRN Reason: Dry Eye(s) Ondansetron HCl (Zofran) 4 mg IV Q8H PRN PRN Reason: Nausea And Vomiting Last Admin: 01/14/19 22:22 Dose: 4 mg Documented by: Simple Syrup (Simple Syrup) 15 ml FEEDTUBE PRN PRN PRN Reason: Hypoglycemia Simple Syrup (Simple Syrup) 30 ml FEEDTUBE PRN PRN PRN Reason: Hypoglycemia Sodium Bicarbonate (Sodium Bicarbonate) 325 mg FEEDTUBE PRN PRN PRN Reason: For Clogged Feeding Tube Sodium Chloride (Sodium Chloride Flush Syringe 10 Ml) 10 ml IV BID [facility] Last Admin: 01/21/19 09:30 Dose: 10 ml Documented by: Sodium Chloride (Sodium Chloride Flush Syringe 10 Ml) 10 ml IV PRN PRN PRN Reason: LINE FLUSH Objective Vital Signs - 12hr 01/20/19 01/20/19 01/20/19 23:45 23:49 23:56 Temperature 99.2 F Pulse Rate 112 H 96 H Pulse Rate [ From Monitor] Respiratory 14 Rate Blood Pressure 145/64 141/42 O2 Sat by Pulse 97 100 Oximetry 01/21/19 01/21/19 01/21/19 00:00 00:01 00:15 Temperature 100.5 F H Pulse Rate 101 H 106 H 102 H Pulse Rate [ 100 H From Monitor] Respiratory 16 14 19 Rate Blood Pressure 142/62 120/41 120/41 O2 Sat by Pulse 100 99 98 Oximetry 01/21/19 01/21/19 01/21/19 00:30 00:45 01:00 Temperature Pulse Rate 98 H 100 H 105 H Pulse Rate [ From Monitor] Respiratory 16 13 11 L Rate Blood Pressure 125/65 119/67 119/67 O2 Sat by Pulse 99 99 94 Oximetry 01/21/19 01/21/19 01/21/19 01:15 01:30 01:45 Temperature Pulse Rate 105 H 87 90 Pulse Rate [ From Monitor] Respiratory 14 16 11 L Rate Blood Pressure 128/59 141/61 138/66 O2 Sat by Pulse 100 100 100 Oximetry 01/21/19 01/21/19 01/21/19 02:00 02:15 02:30 Temperature Pulse Rate 88 90 102 H Pulse Rate [ From Monitor] Respiratory 16 16 16 Rate Blood Pressure 135/58 135/66 141/79 O2 Sat by Pulse 100 100 98 Oximetry 01/21/19 01/21/19 01/21/19 02:45 03:00 03:15 Temperature Pulse Rate 90 86 93 H Pulse Rate [ From Monitor] Respiratory 15 16 17 Rate Blood Pressure 126/108 126/108 153/78 O2 Sat by Pulse 100 100 100 Oximetry 01/21/19 01/21/19 01/21/19 03:31 03:45 04:00 Temperature 99.5 F Pulse Rate 102 H 100 H 104 H Pulse Rate [ 95 H From Monitor] Respiratory 13 14 16 Rate Blood Pressure 154/88 154/88 134/61 O2 Sat by Pulse 99 99 100 Oximetry 01/21/19 01/21/19 01/21/19 04:01 04:15 04:31 Temperature Pulse Rate 103 H 104 H 97 H Pulse Rate [ From Monitor] Respiratory 11 L 13 16 Rate Blood Pressure 110/57 134/61 144/72 O2 Sat by Pulse 98 99 97 Oximetry 01/21/19 01/21/19 01/21/19 04:45 05:00 05:01 Temperature Pulse Rate 98 H 109 H 100 H Pulse Rate [ From Monitor] Respiratory 16 13 Rate Blood Pressure 147/72 147/72 140/41 O2 Sat by Pulse 98 96 100 Oximetry 01/21/19 01/21/19 01/21/19 05:15 05:31 05:45 Temperature Pulse Rate 120 H 115 H 119 H Pulse Rate [ From Monitor] Respiratory 23 12 17 Rate Blood Pressure 134/59 79/64 79/64 O2 Sat by Pulse 91 89 88 Oximetry 01/21/19 01/21/19 01/21/19 06:00 06:01 06:15 Temperature Pulse Rate 97 H 110 H 110 H Pulse Rate [ From Monitor] Respiratory 14 15 15 Rate Blood Pressure 148/56 79/64 135/62 O2 Sat by Pulse 100 93 95 Oximetry 01/21/19 01/21/19 01/21/19 06:31 06:45 07:00 Temperature Pulse Rate 102 H 117 H 118 H Pulse Rate [ From Monitor] Respiratory 16 13 13 Rate Blood Pressure 148/56 148/56 154/36 O2 Sat by Pulse 94 92 89 Oximetry 01/21/19 01/21/19 01/21/19 07:15 07:29 07:31 Temperature Pulse Rate 102 H 98 H 106 H Pulse Rate [ From Monitor] Respiratory 16 13 Rate Blood Pressure 158/92 159/38 124/36 O2 Sat by Pulse 92 100 100 Oximetry 01/21/19 01/21/19 01/21/19 07:45 08:00 08:15 Temperature 99.8 F H Pulse Rate 101 H 93 H 85 Pulse Rate [ 87 From Monitor] Respiratory 12 16 16 Rate Blood Pressure 128/51 135/56 130/63 O2 Sat by Pulse 95 99 100 Oximetry 01/21/19 01/21/19 01/21/19 08:30 08:45 09:00 Temperature 99.8 F H Pulse Rate 82 88 86 Pulse Rate [ From Monitor] Respiratory 16 16 16 Rate Blood Pressure 122/60 122/60 149/83 O2 Sat by Pulse 100 100 100 Oximetry 01/21/19 01/21/19 01/21/19 09:15 09:30 09:45 Temperature Pulse Rate 84 84 81 Pulse Rate [ From Monitor] Respiratory 16 17 16 Rate Blood Pressure 168/81 166/82 154/73 O2 Sat by Pulse 100 100 100 Oximetry 01/21/19 01/21/19 01/21/19 10:00 10:15 10:31 Temperature 99.8 F H Pulse Rate 98 H Pulse Rate [ From Monitor] Respiratory 20 Rate Blood Pressure 154/73 142/37 147/75 O2 Sat by Pulse 100 96 100 Oximetry Constitutional: other (critically ill on pressors and ventilator; cachectic appearing) Eyes: non-icteric ENT: oropharynx moist Neck: supple Effort: normal Ascultation: Bilateral: other (coarse BS bilaterally) Cardiovascular: other (tachy, RR; + gallop (? summation); loud systolic murmur throughout) Gastrointestinal: normoactive bowel sounds, soft, non-tender, non-distended Integumentary: normal Extremities: no cyanosis, no edema, pink and warm Neurologic: normal mental status, non-focal exam, pupils equal and round, CN II- XII normal Psychiatric: mood appropriate, affect normal CBC and BMP: 01/21/19 04:30 01/21/19 04:30 ABG, PT/INR, D-dimer: ABG POC ABG pH 7.428 (7.35-7.45) 01/21/19 04:20 POC ABG pCO2 36.3 (35-45) 01/21/19 04:20 POC ABG pO2 122 (80-105) H 01/21/19 04:20 POC ABG HCO3 24.0 (22-26 mml/L) 01/21/19 04:20 POC ABG Total CO2 25 (23-27mmol/L) 01/21/19 04:20 POC ABG O2 Sat 99 01/21/19 04:20 PT/INR, D-dimer PT 23.7 Sec. (12.2-14.9) H 01/14/19 18:50 INR 1.97 (0.87-1.13) H 01/14/19 18:50 Abnormal lab findings: Abnormal Labs 01/14/19 01/14/19 01/14/19 18:45 18:50 18:50 WBC RBC Hgb Hct MCV MCHC RDW Lymph % (Auto) [place] % (Auto) [place] # Seg Neutrophils % Seg Neutrophils # PT 23.7 H INR 1.97 H APTT < 20.0 L Activated Clotting Time 252 H Heparin Anti-Xa Level POC ABG pH POC ABG pCO2 POC ABG pO2 Sodium 123 L Potassium 5.8 H Chloride 87.7 L Carbon Dioxide 13 L BUN 27 H Creatinine 1.7 H Glucose 474 H POC Glucose Calcium 8.2 L Phosphorus Magnesium AST 70 H ALT 73 H Alkaline Phosphatase Total Creatine Kinase CK-MB (CK-2) Troponin T 1.780 H* NT-Pro-B Natriuret Pep 8727 H Total Protein 6.0 L Albumin 2.8 L HDL Cholesterol Free T4 Ur Specific [place] Urine WBC (Auto) Crossmatch 01/14/19 01/14/19 01/14/19 18:50 18:50 18:50 WBC 13.9 H RBC 3.26 L Hgb 10.5 L Hct 31.9 L MCV 98 H MCHC RDW 17.0 H Lymph % (Auto) 8.3 L [place] % (Auto) [place] # Seg Neutrophils % 86.6 H Seg Neutrophils # 12.1 H PT INR APTT Activated Clotting Time Heparin Anti-Xa Level POC ABG pH POC ABG pCO2 POC ABG pO2 Sodium Potassium Chloride Carbon Dioxide BUN Creatinine Glucose POC Glucose Calcium Phosphorus Magnesium AST ALT Alkaline Phosphatase Total Creatine Kinase CK-MB (CK-2) Troponin T 1.760 H* NT-Pro-B Natriuret Pep Total Protein Albumin HDL Cholesterol 31 L Free T4 1.67 H Ur Specific [place] Urine WBC (Auto) Crossmatch 01/14/19 01/14/19 01/14/19 21:12 21:42 23:05 WBC RBC Hgb Hct MCV MCHC RDW Lymph % (Auto) [place] % (Auto) [place] # Seg Neutrophils % Seg Neutrophils # PT INR APTT Activated Clotting Time Heparin Anti-Xa Level POC ABG pH POC ABG pCO2 POC ABG pO2 Sodium 130 L D Potassium 5.4 H Chloride 90.9 L Carbon Dioxide 17 L BUN 28 H Creatinine Glucose 504 H* POC Glucose 437 H 372 H Calcium 8.2 L Phosphorus Magnesium AST ALT Alkaline Phosphatase Total Creatine Kinase CK-MB (CK-2) Troponin T NT-Pro-B Natriuret Pep Total Protein Albumin HDL Cholesterol Free T4 Ur Specific [place] Urine WBC (Auto) Crossmatch 01/14/19 01/15/19 01/15/19 23:40 00:07 01:12 WBC RBC Hgb Hct MCV MCHC RDW Lymph % (Auto) [place] % (Auto) [place] # Seg Neutrophils % Seg Neutrophils # PT INR APTT Activated Clotting Time Heparin Anti-Xa Level POC ABG pH POC ABG pCO2 POC ABG pO2 Sodium Potassium Chloride Carbon Dioxide BUN Creatinine Glucose POC Glucose 389 H 384 H 311 H Calcium Phosphorus Magnesium AST ALT Alkaline Phosphatase Total Creatine Kinase CK-MB (CK-2) Troponin T NT-Pro-B Natriuret Pep Total Protein Albumin HDL Cholesterol Free T4 Ur Specific [place] Urine WBC (Auto) Crossmatch 01/15/19 01/15/19 01/15/19 01:20 01:20 02:29 WBC RBC Hgb Hct MCV MCHC RDW Lymph % (Auto) [place] % (Auto) [place] # Seg Neutrophils % Seg Neutrophils # PT INR APTT Activated Clotting Time Heparin Anti-Xa Level 0.99 H POC ABG pH POC ABG pCO2 POC ABG pO2 Sodium 134 L Potassium Chloride Carbon Dioxide 20 L BUN 29 H Creatinine Glucose 299 H POC Glucose 289 H Calcium 7.6 L Phosphorus Magnesium AST ALT Alkaline Phosphatase Total Creatine Kinase CK-MB (CK-2) Troponin T NT-Pro-B Natriuret Pep Total Protein Albumin HDL Cholesterol Free T4 Ur Specific [place] Urine WBC (Auto) Crossmatch 01/15/19 01/15/19 01/15/19 03:10 03:23 03:23 WBC 13.6 H RBC 3.01 L Hgb 9.5 L Hct 29.0 L MCV 96 H MCHC RDW 16.8 H Lymph % (Auto) 9.3 L [place] % (Auto) 10.1 H [place] # 1.4 H Seg Neutrophils % 80.3 H Seg Neutrophils # 10.9 H PT INR APTT Activated Clotting Time Heparin Anti-Xa Level POC ABG pH POC ABG pCO2 POC ABG pO2 Sodium 133 L Potassium Chloride Carbon Dioxide 21 L BUN 30 H Creatinine Glucose 190 H POC Glucose 227 H Calcium 7.4 L Phosphorus Magnesium AST ALT Alkaline Phosphatase Total Creatine Kinase CK-MB (CK-2) Troponin T NT-Pro-B Natriuret Pep Total Protein Albumin HDL Cholesterol Free T4 Ur Specific [place] Urine WBC (Auto) Crossmatch 01/15/19 01/15/19 01/15/19 03:23 04:49 05:11 WBC RBC Hgb Hct MCV MCHC RDW Lymph % (Auto) [place] % (Auto) [place] # Seg Neutrophils % Seg Neutrophils # PT INR APTT Activated Clotting Time Heparin Anti-Xa Level 0.85 H POC ABG pH POC ABG pCO2 POC ABG pO2 Sodium Potassium Chloride Carbon Dioxide BUN Creatinine Glucose POC Glucose 171 H Calcium Phosphorus Magnesium AST ALT Alkaline Phosphatase Total Creatine Kinase CK-MB (CK-2) Troponin T NT-Pro-B Natriuret Pep Total Protein Albumin HDL Cholesterol Free T4 Ur Specific [place] 1.046 H Urine WBC (Auto) 19.0 H Crossmatch 01/15/19 01/15/19 01/15/19 05:50 06:19 07:38 WBC RBC Hgb Hct MCV MCHC RDW Lymph % (Auto) [place] % (Auto) [place] # Seg Neutrophils % Seg Neutrophils # PT INR APTT Activated Clotting Time Heparin Anti-Xa Level POC ABG pH POC ABG pCO2 POC ABG pO2 Sodium 134 L Potassium Chloride 97.6 L Carbon Dioxide 20 L BUN 30 H Creatinine Glucose POC Glucose 118 H 120 H Calcium 7.9 L Phosphorus Magnesium AST ALT Alkaline Phosphatase Total Creatine Kinase CK-MB (CK-2) Troponin T NT-Pro-B Natriuret Pep Total Protein Albumin HDL Cholesterol Free T4 Ur Specific [place] Urine WBC (Auto) Crossmatch 01/15/19 01/15/19 01/15/19 08:08 11:24 14:45 WBC RBC Hgb Hct MCV MCHC RDW Lymph % (Auto) [place] % (Auto) [place] # Seg Neutrophils % Seg Neutrophils # PT INR APTT Activated Clotting Time Heparin Anti-Xa Level POC ABG pH POC ABG pCO2 POC ABG pO2 Sodium 132 L Potassium Chloride Carbon Dioxide BUN 31 H Creatinine Glucose 200 H POC Glucose 110 H 173 H Calcium 8.0 L Phosphorus Magnesium AST ALT Alkaline Phosphatase Total Creatine Kinase 294 H CK-MB (CK-2) 9.3 H Troponin T 3.300 H* D NT-Pro-B Natriuret Pep Total Protein Albumin HDL Cholesterol Free T4 Ur Specific [place] Urine WBC (Auto) Crossmatch 01/15/19 01/15/19 01/15/19 16:19 20:39 21:05 WBC RBC Hgb Hct MCV MCHC RDW Lymph % (Auto) [place] % (Auto) [place] # Seg Neutrophils % Seg Neutrophils # PT INR APTT Activated Clotting Time Heparin Anti-Xa Level 0.71 H POC ABG pH POC ABG pCO2 POC ABG pO2 Sodium Potassium Chloride Carbon Dioxide BUN Creatinine Glucose POC Glucose 170 H 159 H Calcium Phosphorus Magnesium AST ALT Alkaline Phosphatase Total Creatine Kinase CK-MB (CK-2) Troponin T NT-Pro-B Natriuret Pep Total Protein Albumin HDL Cholesterol Free T4 Ur Specific [place] Urine WBC (Auto) Crossmatch 01/16/19 01/16/19 01/16/19 05:00 05:00 11:35 WBC 13.5 H RBC 2.58 L Hgb 8.4 L Hct 24.5 L MCV 95 H MCHC RDW 16.4 H Lymph % (Auto) 11.1 L [place] % (Auto) 8.4 H [place] # 1.1 H Seg Neutrophils % 80.1 H Seg Neutrophils # 10.8 H PT INR APTT Activated Clotting Time Heparin Anti-Xa Level POC ABG pH POC ABG pCO2 POC ABG pO2 Sodium Potassium Chloride Carbon Dioxide BUN 23 H Creatinine Glucose 68 L POC Glucose 237 H Calcium 7.8 L Phosphorus Magnesium AST ALT Alkaline Phosphatase Total Creatine Kinase CK-MB (CK-2) Troponin T NT-Pro-B Natriuret Pep Total Protein Albumin HDL Cholesterol Free T4 Ur Specific [place] Urine WBC (Auto) Crossmatch 01/16/19 01/17/19 01/17/19 16:37 03:34 03:34 WBC 11.5 H RBC 2.33 L Hgb 7.3 L Hct 22.0 L MCV 95 H MCHC RDW 17.0 H Lymph % (Auto) 11.2 L [place] % (Auto) 9.8 H [place] # 1.1 H Seg Neutrophils % 78.1 H Seg Neutrophils # 9.0 H PT INR APTT Activated Clotting Time Heparin Anti-Xa Level POC ABG pH POC ABG pCO2 POC ABG pO2 Sodium Potassium Chloride Carbon Dioxide BUN Creatinine Glucose POC Glucose 224 H Calcium Phosphorus Magnesium AST ALT 77 H Alkaline Phosphatase 159 H Total Creatine Kinase CK-MB (CK-2) Troponin T NT-Pro-B Natriuret Pep Total Protein 5.1 L Albumin 2.4 L HDL Cholesterol Free T4 Ur Specific [place] Urine WBC (Auto) Crossmatch 01/17/19 01/17/19 01/17/19 08:12 11:29 14:42 WBC RBC Hgb Hct MCV MCHC RDW Lymph % (Auto) [place] % (Auto) [place] # Seg Neutrophils % Seg Neutrophils # PT INR APTT Activated Clotting Time Heparin Anti-Xa Level 0.19 L POC ABG pH POC ABG pCO2 POC ABG pO2 Sodium Potassium Chloride Carbon Dioxide BUN Creatinine Glucose POC Glucose 136 H 228 H Calcium Phosphorus Magnesium AST ALT Alkaline Phosphatase Total Creatine Kinase CK-MB (CK-2) Troponin T NT-Pro-B Natriuret Pep Total Protein Albumin HDL Cholesterol Free T4 Ur Specific [place] Urine WBC (Auto) Crossmatch 01/17/19 01/17/19 01/17/19 15:37 17:30 21:45 WBC RBC Hgb Hct MCV MCHC RDW Lymph % (Auto) [place] % (Auto) [place] # Seg Neutrophils % Seg Neutrophils # PT INR APTT Activated Clotting Time Heparin Anti-Xa Level POC ABG pH POC ABG pCO2 POC ABG pO2 Sodium Potassium Chloride Carbon Dioxide BUN Creatinine Glucose POC Glucose 293 H 281 H Calcium Phosphorus Magnesium AST ALT Alkaline Phosphatase Total Creatine Kinase CK-MB (CK-2) Troponin T NT-Pro-B Natriuret Pep Total Protein Albumin HDL Cholesterol Free T4 Ur Specific [place] Urine WBC (Auto) Crossmatch See Detail 01/17/19 01/18/19 01/18/19 23:34 04:10 04:10 WBC 13.2 H RBC 3.12 L Hgb 9.6 L Hct 28.6 L D MCV MCHC RDW 17.6 H Lymph % (Auto) 11.4 L [place] % (Auto) 11.9 H Bremer # 1.6 H Seg Neutrophils % 76.0 H Seg Neutrophils # 10.0 H PT INR APTT Activated Clotting Time Heparin Anti-Xa Level > 2.00 H POC ABG pH POC ABG pCO2 POC ABG pO2 Sodium Potassium 3.3 L Chloride Carbon Dioxide BUN Creatinine Glucose 260 H POC Glucose Calcium 8.0 L Phosphorus Magnesium 1.60 L AST ALT Alkaline Phosphatase Total Creatine Kinase CK-MB (CK-2) Troponin T NT-Pro-B Natriuret Pep Total Protein Albumin HDL Cholesterol Free T4 Ur Specific [place] Urine WBC (Auto) Crossmatch 01/18/19 01/18/19 01/18/19 08:43 09:15 11:49 WBC RBC Hgb Hct MCV MCHC RDW Lymph % (Auto) [place] % (Auto) [place] # Seg Neutrophils % Seg Neutrophils # PT INR APTT Activated Clotting Time Heparin Anti-Xa Level < 0.10 L POC ABG pH POC ABG pCO2 POC ABG pO2 Sodium Potassium Chloride Carbon Dioxide BUN Creatinine Glucose POC Glucose 317 H 307 H Calcium Phosphorus Magnesium AST ALT Alkaline Phosphatase Total Creatine Kinase CK-MB (CK-2) Troponin T NT-Pro-B Natriuret Pep Total Protein Albumin HDL Cholesterol Free T4 Ur Specific [place] Urine WBC (Auto) Crossmatch 01/18/19 01/18/19 01/18/19 17:10 17:19 22:22 WBC RBC Hgb Hct MCV MCHC RDW Lymph % (Auto) [place] % (Auto) [place] # Seg Neutrophils % Seg Neutrophils # PT INR APTT Activated Clotting Time Heparin Anti-Xa Level 0.12 L POC ABG pH POC ABG pCO2 POC ABG pO2 Sodium Potassium Chloride Carbon Dioxide BUN Creatinine Glucose POC Glucose 268 H 301 H Calcium Phosphorus Magnesium AST ALT Alkaline Phosphatase Total Creatine Kinase CK-MB (CK-2) Troponin T NT-Pro-B Natriuret Pep Total Protein Albumin HDL Cholesterol Free T4 Ur Specific [place] Urine WBC (Auto) Crossmatch 01/18/19 01/19/19 01/19/19 23:45 05:05 05:05 WBC RBC 2.92 L Hgb 9.2 L Hct 26.3 L MCV MCHC 35 H RDW 17.8 H Lymph % (Auto) [place] % (Auto) 14.9 H [place] # 1.6 H Seg Neutrophils % Seg Neutrophils # PT INR APTT Activated Clotting Time Heparin Anti-Xa Level 0.10 L POC ABG pH POC ABG pCO2 POC ABG pO2 Sodium Potassium 2.6 L* D Chloride 95.1 L Carbon Dioxide BUN 6 L Creatinine Glucose 239 H POC Glucose Calcium 7.4 L Phosphorus Magnesium AST ALT Alkaline Phosphatase Total Creatine Kinase CK-MB (CK-2) Troponin T NT-Pro-B Natriuret Pep Total Protein Albumin HDL Cholesterol Free T4 Ur Specific [place] Urine WBC (Auto) Crossmatch 01/19/19 01/19/19 01/19/19 06:20 06:54 09:05 WBC RBC Hgb Hct MCV MCHC RDW Lymph % (Auto) [place] % (Auto) [place] # Seg Neutrophils % Seg Neutrophils # PT INR APTT Activated Clotting Time Heparin Anti-Xa Level 0.15 L POC ABG pH 7.529 H POC ABG pCO2 33.6 L POC ABG pO2 236 H Sodium Potassium Chloride Carbon Dioxide BUN Creatinine Glucose POC Glucose Calcium Phosphorus 1.50 L Magnesium AST ALT Alkaline Phosphatase Total Creatine Kinase CK-MB (CK-2) Troponin T NT-Pro-B Natriuret Pep Total Protein Albumin HDL Cholesterol Free T4 Ur Specific [place] Urine WBC (Auto) Crossmatch 01/19/19 01/19/19 01/19/19 11:25 15:45 15:45 WBC RBC Hgb Hct MCV MCHC RDW Lymph % (Auto) [place] % (Auto) [place] # Seg Neutrophils % Seg Neutrophils # PT INR APTT Activated Clotting Time Heparin Anti-Xa Level 0.14 L POC ABG pH POC ABG pCO2 POC ABG pO2 Sodium 133 L Potassium 5.3 H D Chloride Carbon Dioxide BUN 8 L Creatinine 0.7 L Glucose 326 H POC Glucose 387 H Calcium 6.9 L Phosphorus Magnesium AST ALT Alkaline Phosphatase Total Creatine Kinase CK-MB (CK-2) Troponin T NT-Pro-B Natriuret Pep Total Protein Albumin HDL Cholesterol Free T4 Ur Specific [place] Urine WBC (Auto) Crossmatch 01/19/19 01/19/19 01/19/19 17:55 19:20 20:00 WBC RBC Hgb Hct MCV MCHC RDW Lymph % (Auto) [place] % (Auto) [place] # Seg Neutrophils % Seg Neutrophils # PT INR APTT Activated Clotting Time Heparin Anti-Xa Level POC ABG pH POC ABG pCO2 POC ABG pO2 Sodium Potassium Chloride Carbon Dioxide BUN Creatinine Glucose POC Glucose 309 H 287 H 251 H Calcium Phosphorus Magnesium AST ALT Alkaline Phosphatase Total Creatine Kinase CK-MB (CK-2) Troponin T NT-Pro-B Natriuret Pep Total Protein Albumin HDL Cholesterol Free T4 Ur Specific [place] Urine WBC (Auto) Crossmatch 01/19/19 01/19/19 01/20/19 22:02 23:57 02:14 WBC RBC Hgb Hct MCV MCHC RDW Lymph % (Auto) [place] % (Auto) [place] # Seg Neutrophils % Seg Neutrophils # PT INR APTT Activated Clotting Time Heparin Anti-Xa Level POC ABG pH POC ABG pCO2 POC ABG pO2 Sodium Potassium Chloride Carbon Dioxide BUN Creatinine Glucose POC Glucose 146 H 120 H 121 H Calcium Phosphorus Magnesium AST ALT Alkaline Phosphatase Total Creatine Kinase CK-MB (CK-2) Troponin T NT-Pro-B Natriuret Pep Total Protein Albumin HDL Cholesterol Free T4 Ur Specific [place] Urine WBC (Auto) Crossmatch 01/20/19 01/20/19 01/20/19 03:12 04:00 04:00 WBC 14.5 H RBC 3.02 L Hgb 9.3 L Hct 27.7 L MCV MCHC RDW 17.9 H Lymph % (Auto) 8.1 L [place] % (Auto) 12.3 H [place] # 1.8 H Seg Neutrophils % 77.5 H Seg Neutrophils # 11.2 H PT INR APTT Activated Clotting Time Heparin Anti-Xa Level POC ABG pH POC ABG pCO2 POC ABG pO2 Sodium 134 L Potassium 5.1 H Chloride Carbon Dioxide BUN 8 L Creatinine Glucose 130 H POC Glucose 133 H Calcium 7.3 L Phosphorus 2.40 L D Magnesium 1.50 L AST ALT Alkaline Phosphatase Total Creatine Kinase CK-MB (CK-2) Troponin T NT-Pro-B Natriuret Pep Total Protein Albumin HDL Cholesterol Free T4 Ur Specific [place] Urine WBC (Auto) Crossmatch 01/20/19 01/20/19 01/20/19 04:00 04:15 05:01 WBC RBC Hgb Hct MCV MCHC RDW Lymph % (Auto) [place] % (Auto) [place] # Seg Neutrophils % Seg Neutrophils # PT INR APTT Activated Clotting Time Heparin Anti-Xa Level 0.17 L POC ABG pH POC ABG pCO2 POC ABG pO2 Sodium Potassium Chloride Carbon Dioxide BUN Creatinine Glucose POC Glucose 136 H 128 H Calcium Phosphorus Magnesium AST ALT Alkaline Phosphatase Total Creatine Kinase CK-MB (CK-2) Troponin T NT-Pro-B Natriuret Pep Total Protein Albumin HDL Cholesterol Free T4 Ur Specific [place] Urine WBC (Auto) Crossmatch 01/20/19 01/20/19 01/20/19 06:16 09:17 10:17 WBC RBC Hgb Hct MCV MCHC RDW Lymph % (Auto) [place] % (Auto) [place] # Seg Neutrophils % Seg Neutrophils # PT INR APTT Activated Clotting Time Heparin Anti-Xa Level POC ABG pH POC ABG pCO2 POC ABG pO2 Sodium Potassium Chloride Carbon Dioxide BUN Creatinine Glucose POC Glucose 113 H 160 H 128 H Calcium Phosphorus Magnesium AST ALT Alkaline Phosphatase Total Creatine Kinase CK-MB (CK-2) Troponin T NT-Pro-B Natriuret Pep Total Protein Albumin HDL Cholesterol Free T4 Ur Specific [place] Urine WBC (Auto) Crossmatch 01/20/19 01/20/19 01/20/19 11:25 12:08 16:22 WBC RBC Hgb Hct MCV MCHC RDW Lymph % (Auto) [place] % (Auto) [place] # Seg Neutrophils % Seg Neutrophils # PT INR APTT Activated Clotting Time Heparin Anti-Xa Level POC ABG pH POC ABG pCO2 POC ABG pO2 Sodium Potassium Chloride Carbon Dioxide BUN Creatinine Glucose POC Glucose 128 H 125 H 126 H Calcium Phosphorus Magnesium AST ALT Alkaline Phosphatase Total Creatine Kinase CK-MB (CK-2) Troponin T NT-Pro-B Natriuret Pep Total Protein Albumin HDL Cholesterol Free T4 Ur Specific [place] Urine WBC (Auto) Crossmatch 01/20/19 01/20/19 01/20/19 17:15 18:20 19:17 WBC RBC Hgb Hct MCV MCHC RDW Lymph % (Auto) [place] % (Auto) [place] # Seg Neutrophils % Seg Neutrophils # PT INR APTT Activated Clotting Time Heparin Anti-Xa Level POC ABG pH POC ABG pCO2 POC ABG pO2 Sodium Potassium Chloride Carbon Dioxide BUN Creatinine Glucose POC Glucose 128 H 159 H 152 H Calcium Phosphorus Magnesium AST ALT Alkaline Phosphatase Total Creatine Kinase CK-MB (CK-2) Troponin T NT-Pro-B Natriuret Pep Total Protein Albumin HDL Cholesterol Free T4 Ur Specific [place] Urine WBC (Auto) Crossmatch 01/20/19 01/20/19 01/20/19 20:10 21:13 22:07 WBC RBC Hgb Hct MCV MCHC RDW Lymph % (Auto) [place] % (Auto) [place] # Seg Neutrophils % Seg Neutrophils # PT INR APTT Activated Clotting Time Heparin Anti-Xa Level POC ABG pH POC ABG pCO2 POC ABG pO2 Sodium Potassium Chloride Carbon Dioxide BUN Creatinine Glucose POC Glucose 144 H 145 H 125 H Calcium Phosphorus Magnesium AST ALT Alkaline Phosphatase Total Creatine Kinase CK-MB (CK-2) Troponin T NT-Pro-B Natriuret Pep Total Protein Albumin HDL Cholesterol Free T4 Ur Specific [place] Urine WBC (Auto) Crossmatch 01/20/19 01/21/19 01/21/19 23:14 00:12 04:20 WBC RBC Hgb Hct MCV MCHC RDW Lymph % (Auto) [place] % (Auto) [place] # Seg Neutrophils % Seg Neutrophils # PT INR APTT Activated Clotting Time Heparin Anti-Xa Level POC ABG pH POC ABG pCO2 POC ABG pO2 122 H Sodium Potassium Chloride Carbon Dioxide BUN Creatinine Glucose POC Glucose 108 H 117 H Calcium Phosphorus Magnesium AST ALT Alkaline Phosphatase Total Creatine Kinase CK-MB (CK-2) Troponin T NT-Pro-B Natriuret Pep Total Protein Albumin HDL Cholesterol Free T4 Ur Specific [place] Urine WBC (Auto) Crossmatch 01/21/19 01/21/19 01/21/19 04:30 04:30 04:30 WBC 15.9 H RBC 2.85 L Hgb 8.7 L Hct 26.1 L MCV MCHC RDW 17.1 H Lymph % (Auto) 9.3 L [place] % (Auto) 11.9 H [place] # 1.9 H Seg Neutrophils % 77.1 H Seg Neutrophils # 12.3 H PT INR APTT Activated Clotting Time Heparin Anti-Xa Level < 0.10 L POC ABG pH POC ABG pCO2 POC ABG pO2 Sodium 131 L Potassium Chloride 93.1 L Carbon Dioxide BUN Creatinine Glucose 123 H POC Glucose Calcium 7.5 L Phosphorus 2.20 L Magnesium AST 52 H ALT 76 H Alkaline Phosphatase Total Creatine Kinase CK-MB (CK-2) Troponin T NT-Pro-B Natriuret Pep Total Protein 5.7 L Albumin 2.4 L HDL Cholesterol Free T4 Ur Specific [place] Urine WBC (Auto) Crossmatch 01/21/19 01/21/19 01/21/19 05:07 06:17 07:05 WBC RBC Hgb Hct MCV MCHC RDW Lymph % (Auto) [place] % (Auto) [place] # Seg Neutrophils % Seg Neutrophils # PT INR APTT Activated Clotting Time Heparin Anti-Xa Level POC ABG pH POC ABG pCO2 POC ABG pO2 Sodium Potassium Chloride Carbon Dioxide BUN Creatinine Glucose POC Glucose 133 H 180 H 167 H Calcium Phosphorus Magnesium AST ALT Alkaline Phosphatase Total Creatine Kinase CK-MB (CK-2) Troponin T NT-Pro-B Natriuret Pep Total Protein Albumin HDL Cholesterol Free T4 Ur Specific [place] Urine WBC (Auto) Crossmatch 01/21/19 01/21/19 01/21/19 08:07 09:07 10:54 WBC RBC Hgb Hct MCV MCHC RDW Lymph % (Auto) [place] % (Auto) [place] # Seg Neutrophils % Seg Neutrophils # PT INR APTT Activated Clotting Time Heparin Anti-Xa Level POC ABG pH POC ABG pCO2 POC ABG pO2 Sodium Potassium Chloride Carbon Dioxide BUN Creatinine Glucose POC Glucose 144 H 142 H 140 H Calcium Phosphorus Magnesium AST ALT Alkaline Phosphatase Total Creatine Kinase CK-MB (CK-2) Troponin T NT-Pro-B Natriuret Pep Total Protein Albumin HDL Cholesterol Free T4 Ur Specific [place] Urine WBC (Auto) Crossmatch Chest x-ray: report reviewed, image reviewed (minimal change in edema)
--- NOTE | 2019-01-21 13:36 | Discharge Summary ---
Providers - Providers Date of Admission: 01/14/19 18:57 Date of discharge: 01/21/19 Attending physician: NAYELI MARTINEZ 01/14/19 Consult to Cardiac Rehabilitation [CONS] Routine Reason For Exam: post pci 01/14/19 18:57 Consult to Physician [CONS] Stat Comment: he saw the patient Consulting Provider: ADRIANNA ROMEO Physician Instructions: Reason For Exam: STEMI 01/14/19 23:24 Consult to Physician [CONS] Routine Comment: I notifed Dr. Millard pt. consult per Dr. Hernandez @ Consulting Provider: SIDDHARTH FONTENOT Physician Instructions: 01/15/[address] Fontenot per BSA Reason For Exam: ICU AdMIT. for NSTEMI/CARDIAC CATH, INSULIN DRIP 01/18/19 21:27 Consult to Dietitian/Nutrition [CONS] Routine Physician Instructions: Reason For Exam: Reason for Consult: Evaluate nutritional intake 01/19/19 13:49 PICC Line Insertion [Consult to PICC Line RN] [CONS] Stat Reason For Exam: Pressors, Multiple gtts Type Line:: PICC 01/20/19 13:02 Consult to Dietitian/Nutrition [CONS] Routine Physician Instructions: Reason For Exam: Reason for Consult: Write/Manage Tube Feeding Primary care physician: JEWEL DIAMETER GAUGER Hospitalization Reason for admission: STEMI Condition: Poor Hospital course: This is a 73-year-old male who is admitted through the emergency department with diagnosis of acute STEMI, acute hypoxemia respiratory failure, cardiogenic shock, ischemic cardiomyopathy, sepsis secondary to bilateral pneumonia/UTI and DKA. The patient underwent emergent cardiac catheterization with primary angioplasty and stenting of his subacute occlusion of the LAD at its ostium. Patient also with residual 80% RCA stenosis. The patient had several complications which prolonged hospital course such as acute hypoxemic respiratory failure requiring intubation on the evening of 01/18/19. Etiology was felt secondary to pulmonary edema/systolic heart failure. Patient also had evidence of sepsis secondary to bilateral pneumonia versus UTI. Patient was treated with IV antibiotics. Blood cultures remain negative. Patient was noted to have cardiogenic shock requiring IV Levophed and dobutamine. Patient also required intra-aortic balloon pump support. Patient received appropriate medical treatment for the heart failure/cardiogenic shock/ischemic cardiomyopathy/VT with medications of IV Lasix, beta perla, CONSTANCE inhibitor, Aldactone, heparin drip, aspirin, Plavix and statin. Patient have further deterioration in the hospital course with multiple V. fib arrest/CODE BLUE. Initial V. fib arrest was felt to be secondary to profound hypokalemia. Patient's potassium was repleted. Patient was also treated with amiodarone drip with the addition of lidocaine later secondary to subsequent V. fib arrests. The patient remained critically ill and was maintained on the aforementioned balloon pump support, hemodynamic support, diuretics and other supportive measures. However prognosis remained guarded. Cardiology arranged for transfer to [facility] under the care of Dr. Leyva for further evaluation. Dedicated to discharge 38 minutes. Disposition: [id number] GEN HOSP IP Time spent for discharge: 38 Core Measure Documentation - Palliative Care Palliative Care/ Comfort Measures: Not Applicable - Core Measures Any of the following diagnoses?: acute VT, heart failure - Acute VT Discharge Requirements Aspirin at discharge: Yes CONSTANCE/ARB for LVSD if EF <40%: Yes Beta perla at discharge: Yes Statin for LDL = or >100 mg/dl on DC: Yes - Heart Failure Discharge Requirements CONSTANCE/ARB for LVSD if EF <40%: Yes Beta perla at discharge: Yes Exam - Constitutional Vitals: Temp Pulse Resp BP Pulse Ox 99.8 F H 98 H 20 147/75 100 01/21/19 10:00 01/21/19 10:00 01/21/19 10:00 01/21/19 10:31 01/21/19 10:31 General appearance: Present: severe distress, well-nourished, other (intubated and sedated. Multiple pressors.) - EENT Eyes: Present: PERRL ENT: hearing intact, clear oral mucosa - Neck Neck: Present: supple, normal ROM - Respiratory Respiratory effort: normal Respiratory: bilateral: rales, rhonchi - Cardiovascular Heart Sounds: Present: S1 & S2. Absent: rub, click - Extremities Extremities: pulses symmetrical, No edema Peripheral Pulses: within normal limits - Abdominal General gastrointestinal: Present: soft, non-tender, non-distended, normal bowel sounds Male genitourinary: Present: normal - Integumentary Integumentary: Present: clear, warm, dry - Musculoskeletal Musculoskeletal: gait normal, strength equal bilaterally - Psychiatric Psychiatric: appropriate mood/affect, intact judgment & insight - Neurologic Neurologic: CNII-XII intact, moves all extremities Plan Activity: advance as tolerated Weight Bearing Status: Non-Weight Bearing Diet: per dietitian instruction Follow up with: PRIMARY CARE, [Primary Care Provider] - 7 Days
== END 2019-01-21 11:41 | disposition short-term general hospital (02) | DRG 853 ==
LOC: ED 17:41 → CATH 18:39 → CC1 18:57
PROVIDERS: ADMIT Internal Medicine; ATTEND Hospitalist
PROC: 5A02210 Assistance with Cardiac Output using Balloon Pump, Continuous (ICD-10-PCS; principal; 2019-01-14)
PROC: 027034Z Dilation of Coronary Artery, One Artery with Drug-eluting Intraluminal Device, Percutaneous Approach (ICD-10-PCS; 2019-01-14)
PROC: 4A023N7 Measurement of Cardiac Sampling and Pressure, Left Heart, Percutaneous Approach (ICD-10-PCS; 2019-01-14)
PROC: B2111ZZ Fluoroscopy of Multiple Coronary Arteries using Low Osmolar Contrast (ICD-10-PCS; 2019-01-14)
PROC: B2151ZZ Fluoroscopy of Left Heart using Low Osmolar Contrast (ICD-10-PCS; 2019-01-14)
PROC: 30233N1 Transfusion of Nonautologous Red Blood Cells into Peripheral Vein, Percutaneous Approach (ICD-10-PCS; 2019-01-17)
PROC: 5A09357 Assistance with Respiratory Ventilation, Less than 24 Consecutive Hours, Continuous Positive Airway Pressure (ICD-10-PCS; 2019-01-17)
PROC: 5A1945Z Respiratory Ventilation, 24-96 Consecutive Hours (ICD-10-PCS; 2019-01-18)
PROC: 0BH17EZ Insertion of Endotracheal Airway into Trachea, Via Natural or Artificial Opening (ICD-10-PCS; 2019-01-18)
PROC: 02HV33Z Insertion of Infusion Device into Superior Vena Cava, Percutaneous Approach (ICD-10-PCS; 2019-01-19)
PROC: 03HY32Z Insertion of Monitoring Device into Upper Artery, Percutaneous Approach (ICD-10-PCS; 2019-01-19)
PROC: 4A033R1 Measurement of Arterial Saturation, Peripheral, Percutaneous Approach (ICD-10-PCS; 2019-01-20)
DX: A41.9 Sepsis, unspecified organism (principal); I21.09 ST elevation (STEMI) myocardial infarction involving other coronary artery of anterior wall; J96.01 Acute respiratory failure with hypoxia; I50.21 Acute systolic (congestive) heart failure; E11.10 Type 2 diabetes mellitus with ketoacidosis without coma; R57.0 Cardiogenic shock; J18.9 Pneumonia, unspecified organism; I49.01 Ventricular fibrillation; N39.0 Urinary tract infection, site not specified; E87.1 Hypo-osmolality and hyponatremia; I25.82 Chronic total occlusion of coronary artery; I25.5 Ischemic cardiomyopathy; I11.0 Hypertensive heart disease with heart failure; D64.9 Anemia, unspecified; E78.5 Hyperlipidemia, unspecified; I25.10 Atherosclerotic heart disease of native coronary artery without angina pectoris; E87.6 Hypokalemia; E83.42 Hypomagnesemia; Z79.84 Long term (current) use of oral hypoglycemic drugs
CPT/HCPCS: 33967; 36415; 36620; 71045; 74018; 80048; 80053; 80061; 80076; 81001; 82550; 82553; 82803; 82962; 83735; 83880; 84100; 84439; 84443; 84484; 85014; 85018; 85025; 85347; 85520; 85610; 85730; 86850; 86900; 86901; 86920; 87040; 87086; 87205; 92941; 93005; 93010; 93306; 93458; 94003; 94760; G0378; A9270-GY; C1725; C1769; C1874; C1887; C1894; C9606; J0171; J0282; J0330; J0456; J0696; J1250; J1644; J1815; J1940; J2001; J2250; J2270; J2405; J2704; J3010; J3246; J3475; J3480; J7030; J7040; J7050; J7060; P9016; Q9967